=== PATIENT | female | born 1980 | race Caucasian/White ===

== ENCOUNTER 2016-09-14 17:05 | Inpatient (IN) | payer OTHER ==
[~2016-09-14] VITALS: Ht 154.9 cm; Wt 53.5 kg
[~2016-09-14 17:05] MED LIST: LITHIUM; OMEPRAZOLE; PAROXETINE; SUCRALFATE 1 GM; SUMATRIPTAN; TOPIRAMATE; TRAZADONE; VENTOLIN
[2016-09-14 22:11] VITALS: BP 121/86; RESP 18
[2016-09-14 22:48] VITALS: Ht 154.9 cm; Wt 53.5 kg
[2016-09-15] MEDS ORDERED: ACETAMINOPHEN 325 MG TAB PO PRN
[2016-09-15] MEDS ORDERED: ALBUTEROL 18 GM INHALER INH PRN
[2016-09-15] MEDS: ONDANSETRON 4 MG INJ IV PRN ×2 (00:18→18:12)
[2016-09-15] MEDS: morphine 2 MG INJ IV PRN ×6 (00:19→23:07)
[2016-09-15] MEDS: DEXTROSE 5%-0.45% NACL 1,000 ML IV SCH (00:43)
[2016-09-15] MEDS: PANTOPRAZOLE (EC) 40 MG TAB PO SCH (05:42)
[2016-09-15 07:05] LABS: ADD SCAN DIFF NO
[2016-09-15 07:12] LABS: ABNORMAL IP MESSAGE 1; BASOPHILS % 0.3 % (0.0-2.0); EOSINOPHILS # 0.2 10^3/ul (0.0-0.5); EOSINOPHILS % 2.9 % (0.0-7.0); HEMATOCRIT 34.2 % (37.0-47.0); HEMOGLOBIN 10.6 g/dl (12.0-16.0); LYMPHOCYTES # 1.1 10^3/ul (0.8-2.9); LYMPHOCYTES % 17.7 % (15.0-51.0); MEAN CORPUSCULAR HEMOGLOBIN 32.6 pg (29.0-33.0); MEAN CORPUSCULAR VOLUME 105.2 fl (82.0-101.0); MEAN PLATELET VOLUME 11.8 fl (7.4-10.4); MONOCYTE # 0.8 10^3/ul (0.3-0.9); MONOCYTES % 12.1 % (0.0-11.0); NEUTROPHIL # 4.2 10^3/ul (1.6-7.5); NEUTROPHILS % 66.5 % (39.0-77.0); PLATELET COUNT 81 10^3/UL (140-415); RED BLOOD COUNT 3.25 10^6/ul (4.20-5.40); RED CELL DISTRIBUTION WIDTH 17.1 % (11.5-14.5); WHITE BLOOD COUNT 6.3 10^3/ul (4.8-10.8)
[2016-09-15 07:39] LABS: BILIRUBIN,INDIRECT 0.7 mg/dl (0-1.1); BILIRUBIN,TOTAL 0.7 mg/dl (0.2-1.3); CALCIUM 8.6 mg/dl (8.4-10.2); CREATININE 0.5 mg/dl (0.44-1.00); POTASSIUM 3.5 mmol/L (3.5-5.1)
[2016-09-15 08:03] VITALS: BP 129/99; RESP 18
[2016-09-15] MEDS: AMLODIPINE 5 MG TAB PO SCH (09:41)
[2016-09-15] MEDS: PAROXETINE 20 MG TAB PO SCH (09:41)
[2016-09-15] MEDS: SUCRALFATE 1 GM TAB PO SCH ×2 (09:41→20:34)
[2016-09-15] MEDS: TOPIRAMATE 25 MG TAB PO SCH ×2 (09:41→20:35)
[2016-09-15] MEDS: HEPARIN 5,000 UNIT/0.5 ML VIAL SC SCH ×2 (09:49→20:40)
--- NOTE | 2016-09-15 13:26 | HP ---
Date/Time of Note Date/Time of Note DATE: 09/15/16 TIME: : Assessment/Plan VTE Prophylaxis VTE Prophylaxis Intervention: ambulation Lines/Catheters IV [facility]from [facility] [place] [facility] Urinary Cath still in place: No Assessment/Plan Chief Complaint/Hosp Course 1. Abdominal pain 2. Depression, mild 3. Anemia 4. Hs migraine 5. Hx alcohol abuse 6. Hx elevated LFTs 7. Thrombocytopenia Problems: Assessment/Plan 1. Dr Berry for consult 2. MRCP if need per GI consult HPI/ROS Admit Date/Time Admit Date/Time September 14, 2016 at 21:55 Hx of Present Illness pt reported abdominal pain on september 09, she was hospitalized in [facility] for 3 days. Her abdominal pain somehow decreased. Pt was transferred to [facility] because it is her network hospital. Pt reported drinking alcohol, and associated pain with it. ROS Constitutional: poor po Eyes: no complaints ENT: no complaints Respiratory: cough, no complaints, shortness of breath, No other, No pain, No pleuritic pain, No sputum, No wheezing Cardiovascular: chest pain, no complaints, orthopenea, No edema, No lightheadedness, No other, No palpitations, No paroxysmal nocturnal dyspnea Gastrointestinal: other (gas), pain Genitourinary: no complaints Musculoskeletal: no complaints Skin: no complaints Neurologic: other (migraines) Psychological: anxiety, depression, No confusion, No nl mood/affect, No no complaints, No other, No suicidal Immunologic: no complaints PMH/Family/Social Past Medical History Medical History: other (elevated LFT, seizures, anemia, depression, migraines) Past Surgical History Past Surgical Hx: no surgical history Family History Significant Family History: no pertinent family hx Social History Alcohol Use: heavy Smoking Status: Never smoker Drug Use: none Exam/Review of Systems Vital Signs Vitals Vital Signs Date Time Temp Pulse Resp B/P Pulse Ox O2 Delivery O2 Flow Rate FiO2 09/15/16 08:03 98.6 83 18 129/99 99 Intake and Output 09/14/16 09/14/16 09/15/16 15:00 23:00 07:00 Intake Total 320 ml Balance 320 ml Exam Constitutional: alert, oriented Psych: depression Head: atraumatic, normocephalic Eyes: EOMI, nl conjunctiva, nl lids ENMT: nl external ears & nose, nl lips & teeth Neck: supple Respiratory: clear to auscultation Cardiovascular: regular rate and rhythm Gastrointestinal: other (painful on palpation in 4 quadrants), soft Genitourinary - Female: nl adnexae Musculoskeletal: nl extremities to inspection Extremities: normal pulses 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 Skin: nl turgor Lymph: nl lymph nodes Labs Result Diagram: 09/15/1630 09/15/16 0530 Medications Medications Current Medications Dextrose/Sodium Chloride (D5-1/2ns) 1,000 ml @ 30 mls/hr Q24H IV Last administered on 09/15/16 00:43; Admin Dose 30 MLS/HR; Start 09/15/16 at 00:00 [place] Carbonate ([place] Carbonate) 300 mg QHS PO ; Start 09/15/16 at 21:00 Pantoprazole (Protonix Tab) 40 mg DAILY@06 PO Last administered on 09/15/16 05 :42; Admin Dose 40 MG; Start 09/15/16 at 06:00 Paroxetine HCl (Paxil) 20 mg DAILY PO Last administered on 09/15/16 09:41; Admin Dose 20 MG; Start 09/15/16 at 09:00 Sucralfate (Carafate) 1 gm BID PO Last administered on 09/15/16 09:41; Admin Dose 1 GM; Start 09/15/16 at 09:00 Topiramate (Topamax) 50 mg BID PO Last administered on 09/15/16 09:41; Admin Dose 50 MG; Start 09/15/16 at 09:00 Trazodone HCl (Desyrel) 100 mg QHS PO ; Start 09/15/16 at 21:00 Heparin Sodium (Porcine) (Heparin (5000 Units/0.5 ml)) 5,000 unit BID SC Last administered on 09/15/16 09:49; Admin Dose 5,000 UNIT; Start 09/15/16 at 09:00 Acetaminophen (Tylenol Tab) 650 mg Q4H PRN PO PAIN AND OR ELEVATED TEMP; Start 09/15/16 at 00:00 Morphine Sulfate (morphine) 2 mg Q4H PRN IV SEVERE PAIN LEVEL 7-10 Last administered on 09/15/16 09:43; Admin Dose 2 MG; Start 09/15/16 at 00:00 Senna (Senokot) 2 tab BID PRN PO CONSTIPATION; Start 09/15/16 at 00:00 Amlodipine Besylate (Norvasc) 5 mg DAILY PO Last administered on 09/15/16 09: 41; Admin Dose 5 MG; Start 09/15/16 at 09:00 Ondansetron HCl (Zofran Inj) 4 mg Q4H PRN IV NAUSEA AND/OR VOMITING Last administered on 09/15/16 00:18; Admin Dose 4 MG; Start 09/15/16 at 00:00 RUT MADRIGAL September 15, 2016 13:26
[2016-09-15 14:11] LABS: ADD SCAN DIFF NO
[2016-09-15 14:14] LABS: ABNORMAL IP MESSAGE 1; BASOPHILS % 0.3 % (0.0-2.0); EOSINOPHILS # 0.2 10^3/ul (0.0-0.5); HEMATOCRIT 33.8 % (37.0-47.0); HEMOGLOBIN 10.7 g/dl (12.0-16.0); LYMPHOCYTES # 0.9 10^3/ul (0.8-2.9); LYMPHOCYTES % 12.9 % (15.0-51.0); MEAN CORPUSCULAR HEMOGLOBIN 33.1 pg (29.0-33.0); MEAN CORPUSCULAR HGB CONC 31.7 g/dl (32.0-37.0); MEAN CORPUSCULAR VOLUME 104.6 fl (82.0-101.0); MONOCYTE # 0.9 10^3/ul (0.3-0.9); NEUTROPHIL # 5.1 10^3/ul (1.6-7.5); RED BLOOD COUNT 3.23 10^6/ul (4.20-5.40); WHITE BLOOD COUNT 7.2 10^3/ul (4.8-10.8)
[2016-09-15 14:21] LABS: PLATELET COUNT 87 10^3/UL (140-415)
--- NOTE | 2016-09-15 15:59 | CONS ---
Date/Time of Note Date/Time of Note DATE: 09/15/16 TIME: 15:33 Assessment/Plan Assessment/Plan Chief Complaint/Hosp Course 36 yo alcoholic initially admitted to [facility] with pancreatitis after binge drinking who is found to be persistantly thrombocytopenic now with a platelet count in the 80's which is slightly lower than what was seen at [place] when platelets were in the 90's #Thrombocytopenia -this is most likely secondary to acute bone marrow suppressive effects from heavy binge drinking. even tough patient has not had a drink in the last few days while hospitalized this can take weeks normalize. Her non contrast CT done at [place] did not show evidence of cirrhosis but it is likely that a component of hepatocellular disease is contributing to her low platelet count -to rule out other causes of thrombocytopenia, will check a DIC panel and LDH to evaluate for TTP. will also check peripheral smear -continue to closely monitor platelet count Problems: Consultation Date/Type/Reason Admit Date/Time September 14, 2016 at 21:55 Date of Consultation: September 15, 2016 Type of Consultation: Hematology Reason for Consultation thrombocytopenia Referring Provider: YASMANI LUND MD Hx of Present Illness (history obtained from records at [facility]). 36yo with history of ETOH abuse who had an episode of binge drinking, drinking a bottle of vodka a day, prior to her presentation to [place] on 09/12 when she presented with abdominal pain. Abdominal pain was deemed secondary to alcoholic pancreatitis. . Patient was evaluated by GI and an ultrasound was done which demonstrated CBD dilatation . An MRCP was then done which demonstrated gastritis, intra and extrahepatic duct dilation thought secondary to duodenitis, cholecystitis, as well as an incidentally noted pancreatic cystic tail mass that has been stable over time. Patients platelets in 08/2016 where normal but since her admission to [place] in 09/2016 her platelets have dropped to 80-90's. Pt still c/o mild abdominal pain requiring morphine around the clock Eyes: no complaints ENT: no complaints Respiratory: cough, no complaints, shortness of breath, No other, No pain, No pleuritic pain, No sputum, No wheezing Cardiovascular: chest pain, no complaints, orthopenea, No edema, No lightheadedness, No other, No palpitations, No paroxysmal nocturnal dyspnea Gastrointestinal: other (gas), pain Genitourinary: no complaints Musculoskeletal: no complaints Skin: no complaints Neurologic: other (migraines) Psychological: depression Immunologic: no complaints Past Medical History PUD pancreatitis depression EtOH abuse history of migraine h/o seizure disorder Medical History: other (elevated LFT, seizures, anemia, depression, migraines) Past Surgical History Past Surgical Hx: no surgical history Family History Significant Family History: no pertinent family hx Social History Alcohol Use: heavy (1 bottle of vodka a day) Smoking Status: Never smoker Drug Use: none Exam/Review of Systems Vital Signs Vitals Vital Signs Date Time Temp Pulse Resp B/P Pulse Ox O2 Delivery O2 Flow Rate FiO2 09/15/16 08:03 98.6 83 18 129/99 99 Intake and Output 09/14/16 09/14/16 09/15/16 15:00 23:00 07:00 Intake Total 320 ml Balance 320 ml Exam Constitutional: alert Psych: no complaints Head: atraumatic, normocephalic Eyes: nl conjunctiva ENMT: nl external ears & nose, nl lips & teeth Neck: non-tender, supple Respiratory: clear to auscultation Cardiovascular: nl pulses, regular rate and rhythm Gastrointestinal: soft Musculoskeletal: nl extremities to inspection Results Result Diagram: 09/15/16 1350 09/15/16 0530 Results 24 hrs Laboratory Tests Test 09/15/16 05:30 09/15/16 13:50 White Blood Count 6.3 7.2 Red Blood Count 3.25 L 3.23 L Hemoglobin 10.6 L 10.7 L Hematocrit 34.2 L 33.8 L Mean Corpuscular Volume 105.2 H 104.6 H Mean Corpuscular Hemoglobin 32.6 33.1 H Mean Corpuscular Hemoglobin Concent 31.0 L 31.7 L Red Cell Distribution Width 17.1 H 17.0 H Platelet Count 81 L 87 L Mean Platelet Volume 11.8 H 11.0 H Neutrophils % 66.5 71.0 Lymphocytes % 17.7 12.9 L Monocytes % 12.1 H 12.0 H Eosinophils % 2.9 3.0 Basophils % 0.3 0.3 Nucleated Red Blood Cells % 0.0 0.0 Neutrophils # 4.2 5.1 Lymphocytes # 1.1 0.9 Monocytes # 0.8 0.9 Eosinophils # 0.2 0.2 Basophils # 0.0 0.0 Nucleated Red Blood Cells # 0.0 0.0 Sodium Level 138 Potassium Level 3.5 Chloride Level 113 H Carbon Dioxide Level 19 L Anion Gap 10 Blood Urea Nitrogen 4 L Creatinine 0.50 Glucose Level 80 Calcium Level 8.6 Total Bilirubin 0.7 Direct Bilirubin 0.00 Indirect Bilirubin 0.7 Aspartate Amino Transf (AST/SGOT) 81 H Alanine Aminotransferase (ALT/SGPT) 225 H Alkaline Phosphatase 208 H Total Protein 6.0 L Albumin 3.0 L Globulin 3.00 Albumin/Globulin Ratio 1.00 Medications Medications Current Medications Dextrose/Sodium Chloride (D5-1/2ns) 1,000 ml @ 30 mls/hr Q24H IV Last administered on 09/15/16 00:43; Admin Dose 30 MLS/HR; Start 09/15/16 at 00:00 [place] Carbonate ([place] Carbonate) 300 mg QHS PO ; Start 09/15/16 at 21:00 Pantoprazole (Protonix Tab) 40 mg DAILY@06 PO Last administered on 09/15/16 05 :42; Admin Dose 40 MG; Start 09/15/16 at 06:00 Paroxetine HCl (Paxil) 20 mg DAILY PO Last administered on 09/15/16 09:41; Admin Dose 20 MG; Start 09/15/16 at 09:00 Sucralfate (Carafate) 1 gm BID PO Last administered on 09/15/16 09:41; Admin Dose 1 GM; Start 09/15/16 at 09:00 Topiramate (Topamax) 50 mg BID PO Last administered on 09/15/16 09:41; Admin Dose 50 MG; Start 09/15/16 at 09:00 Trazodone HCl (Desyrel) 100 mg QHS PO ; Start 09/15/16 at 21:00 Heparin Sodium (Porcine) (Heparin (5000 Units/0.5 ml)) 5,000 unit BID SC Last administered on 09/15/16 09:49; Admin Dose 5,000 UNIT; Start 09/15/16 at 09:00 Acetaminophen (Tylenol Tab) 650 mg Q4H PRN PO PAIN AND OR ELEVATED TEMP; Start 09/15/16 at 00:00 Morphine Sulfate (morphine) 2 mg Q4H PRN IV SEVERE PAIN LEVEL 7-10 Last administered on 09/15/16 14:10; Admin Dose 2 MG; Start 09/15/16 at 00:00 Senna (Senokot) 2 tab BID PRN PO CONSTIPATION; Start 09/15/16 at 00:00 Amlodipine Besylate (Norvasc) 5 mg DAILY PO Last administered on 09/15/16 09: 41; Admin Dose 5 MG; Start 09/15/16 at 09:00 Ondansetron HCl (Zofran Inj) 4 mg Q4H PRN IV NAUSEA AND/OR VOMITING Last administered on 09/15/16 00:18; Admin Dose 4 MG; Start 09/15/16 at 00:00 ULYSSES STEINBERG M.D. September 15, 2016 15:43
--- NOTE | 2016-09-15 17:01 | RADRPT ---
PROCEDURE: MRCP. CLINICAL INDICATION: Common bile duct stone, pain. TECHNIQUE: MRCP was performed. Patient was examined without contrast. 3-D coronal rotating MIP i mages of the biliary tree are available for review. COMPARISON: None available FINDINGS: Motion artifact limits evaluation. The gallbladder is distended. No gallstone or gallbladder wall thickening is identified. There is dilatation of the common bile duct, measuring approximately 11 mm in maximal diameter. There is mil d prominence of intrahepatic biliary ducts as well. No gross evidence of common duct stone, strictu re or filling defect is identified. Indeterminate septated cystic structure is seen adjacent to pancreatic tail, measuring 7.3 x 5.9 cm (3-19). The pancreas appears atrophic. Liver, spleen, adrenal glands and kidneys are unremarkable. There is no obstructive uropathy. The stomach is grossly unremarkable. Abdominal aorta is normal in caliber. There is no retroperitoneal or jc hepatis lymphadenopathy. Trace amount of upper abdominal ascites is present. No bowel obstruction or gross evidence of abs cess is seen. The surrounding osseous structures are remarkable for degenerative spondylosis of the spine. No focal osseous lesion is identified. IMPRESSION: 1. There is nonspecific dilatation of the common bile duct, measuring approximately 11 mm in amena l diameter, along with mild prominence of intrahepatic biliary ducts. Gallbladder is distended as w ell. No evidence of cholelithiasis, cholecystitis, or choledocholithiasis is identified. 2. Indeterminate septated cystic structure is seen adjacent to pancreatic tail, measuring 7.3 cm in maximal diameter - considerations include pseudocyst and cystic pancreatic neoplasm. Pancreatic pr otocol contrast enhanced CT is recommended for further characterization. 3. Nonspecific trace amount of upper abdominal ascites is present. RPTAT: QQ .Marco Isabel MD, MD Date Time Electronically viewed and signed by .Marco Isabel MD, on 09/15/2016 17:01 .R/
--- NOTE | 2016-09-15 17:51 | CONS ---
DATE OF ADMISSION: 09/14/2016 DATE OF CONSULTATION: HISTORY OF PRESENT ILLNESS: The patient is a 36-year-old female admitted initially to [facility] for abdominal pain. She stayed at [place] for 3 days. Her pain decreased but persisted s ubsequently got transferred to this facility. She reported drinking alcohol. The patient was initi ally nauseous, no vomiting. 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 I do not have any report from [facility], nothing to scan on the computer. PAST MEDICAL HISTORY: Gastritis. She had upper endoscopy done by me 8 months ago. SOCIAL HISTORY: Drinks alcohol. No smoking, no recreational drug. ALLERGIES: NONE. PHYSICAL EXAMINATION: GENERAL: Alert, awake, not in distress. VITAL SIGNS: Stable. HEENT: Unremarkable. NECK: Supple, no thyromegaly, no lymphadenopathy. CARDIOVASCULAR: No murmur, gallop or click. LUNGS: Clear. ABDOMEN: Soft. Tenderness in the epigastric area. Bowel sounds good. No mass of the upper abdome n. EXTREMITIES: No edema. CENTRAL NERVOUS SYSTEM: Grossly within normal limits. LABORATORY DATA: Liver functions were all abnormal. Hematocrit is low. IMPRESSION: 1. Elevated liver function tests with abdominal pain most probably related to alcoholic liver disea se, rule out bile duct stone. 2. Seizure disorder. 3. Depression. 4. Migraine. 5. Anemia. 6. Thrombocytopenia. 7. Macrocytosis. PLAN: At this point, is to get MRCP done to make sure we are not missing a bile duct stone. In the interim, continue PPI and non-opioid pain medication, a banana bag. Dictated By: HELIO DEAN/OLESYA Conf#: [id number] DID#: [id number]
[2016-09-15 20:33] VITALS: BP 108/75; PULSE 87
[2016-09-15] MEDS: LITHIUM CARBONATE 300 MG CAP PO SCH (20:36)
[2016-09-15] MEDS: traZODone 100 MG TAB PO SCH (20:36)
[2016-09-16] MEDS: morphine 2 MG INJ IV PRN ×3 (05:52→18:22)
[2016-09-16] MEDS: ONDANSETRON 4 MG INJ IV PRN ×2 (05:53→15:25)
[2016-09-16] MEDS: PANTOPRAZOLE (EC) 40 MG TAB PO SCH (06:10)
[2016-09-16 06:36] LABS: POTASSIUM 3.3 mmol/L (3.5-5.1)
[2016-09-16 06:39] LABS: CALCIUM 8.9 mg/dl (8.4-10.2); CREATININE 0.55 mg/dl (0.44-1.00)
[2016-09-16 07:23] VITALS: BP 109/74; RESP 16
[2016-09-16] MEDS: PAROXETINE 20 MG TAB PO SCH (08:43)
[2016-09-16] MEDS: TOPIRAMATE 25 MG TAB PO SCH ×2 (08:43→20:42)
[2016-09-16] MEDS: SUCRALFATE 1 GM TAB PO SCH ×2 (08:43→20:41)
[2016-09-16] MEDS: AMLODIPINE 5 MG TAB PO SCH (08:44)
[2016-09-16] MEDS: HEPARIN 5,000 UNIT/0.5 ML VIAL SC SCH ×2 (08:54→20:47)
[2016-09-16] MEDS: SENNA TAB PO PRN (13:02)
--- NOTE | 2016-09-16 14:36 | CONS ---
Date/Time of Note Date/Time of Note DATE: 09/16/16 TIME: 14:34 Assessment/Plan Assessment/Plan Additional Assessment/Plan IMPRESSION: 1. Elevated liver function tests with abdominal pain most probably related to alcoholic liver disease, rule out bile duct stone. 2. Seizure disorder. 3. Depression. 4. Migraine. 5. Anemia. 6. Thrombocytopenia. 7. Macrocytosis. 8. Pancreatic cyst most probably a pseudocyst 9. Dilated biliary system without choledocholithiasis Plan Patient may need ERCP She will need EUS to monitor pseudocyst Consultation Date/Type/Reason Admit Date/Time September 14, 2016 at 21:55 Initial Consult Date 09/15/16 Type of Consultation: Hematology Referring Provider: YASMANI LUND MD 24 HR Interval Summary Free Text/Dictation Patient complains of abdominal pain No nausea no vomiting Exam/Review of Systems Vital Signs Vitals Vital Signs Date Time Temp Pulse Resp B/P Pulse Ox O2 Delivery O2 Flow Rate FiO2 09/16/16 07:23 98.8 75 16 109/74 97 09/15/16 20:33 Room Air Intake and Output 09/15/16 09/15/16 09/16/16 15:00 23:00 07:00 Intake Total 1480 ml 510 ml Balance 1480 ml 510 ml Exam Constitutional: alert, oriented, well developed Psych: nl mood/affect, no complaints Head: atraumatic, normocephalic Eyes: EOMI, PERRL, nl conjunctiva, nl lids, nl sclera ENMT: nl external ears & nose, nl lips & teeth, nl nasal mucosa & septum Neck: non-tender, supple Respiratory: clear to auscultation, normal air movement Cardiovascular: nl pulses, regular rate and rhythm Gastrointestinal: nl liver, spleen, non-tender, soft Musculoskeletal: nl extremities to inspection, nl gait and stance Extremities: normal pulses 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, nl mental status, nl speech, nl strength Skin: nl turgor, No rash or lesions Lymph: nl lymph nodes Results Result Diagram: 09/15/16 1350 09/16/16 0438 Results 24 hrs Laboratory Tests Test 09/16/16 04:38 Sodium Level 140 Potassium Level 3.3 L Chloride Level 110 Carbon Dioxide Level 20 L Anion Gap 13 Blood Urea Nitrogen 7 Creatinine 0.55 Glucose Level 112 Calcium Level 8.9 Medications Medications Current Medications Dextrose/Sodium Chloride (D5-1/2ns) 1,000 ml @ 30 mls/hr Q24H IV Last administered on 09/15/16 00:43; Admin Dose 30 MLS/HR; Start 09/15/16 at 00:00 [place] Carbonate ([place] Carbonate) 300 mg QHS PO Last administered on 20:36; Admin Dose 300 MG; Start 09/15/16 at 21:00 Pantoprazole (Protonix Tab) 40 mg DAILY@06 PO Last administered on 09/16/16 06 :10; Admin Dose 40 MG; Start 09/15/16 at 06:00 Paroxetine HCl (Paxil) 20 mg DAILY PO Last administered on 09/16/16 08:43; Admin Dose 20 MG; Start 09/15/16 at 09:00 Sucralfate (Carafate) 1 gm BID PO Last administered on 09/16/16 08:43; Admin Dose 1 GM; Start 09/15/16 at 09:00 Topiramate (Topamax) 50 mg BID PO Last administered on 09/16/16 08:43; Admin Dose 50 MG; Start 09/15/16 at 09:00 Trazodone HCl (Desyrel) 100 mg QHS PO Last administered on 09/15/16 20:36; Admin Dose 100 MG; Start 09/15/16 at 21:00 Heparin Sodium (Porcine) (Heparin (5000 Units/0.5 ml)) 5,000 unit BID SC Last administered on 09/16/16 08:54; Admin Dose 5,000 UNIT; Start 09/15/16 at 09:00 Acetaminophen (Tylenol Tab) 650 mg Q4H PRN PO PAIN AND OR ELEVATED TEMP; Start 09/15/16 at 00:00 Morphine Sulfate (morphine) 2 mg Q4H PRN IV SEVERE PAIN LEVEL 7-10 Last administered on 09/16/16 13:02; Admin Dose 2 MG; Start 09/15/16 at 00:00 Senna (Senokot) 2 tab BID PRN PO CONSTIPATION Last administered on 09/16/16 13 :02; Admin Dose 2 TAB; Start 09/15/16 at 00:00 Amlodipine Besylate (Norvasc) 5 mg DAILY PO Last administered on 09/16/16 08: 44; Admin Dose 5 MG; Start 09/15/16 at 09:00 Ondansetron HCl (Zofran Inj) 4 mg Q4H PRN IV NAUSEA AND/OR VOMITING Last administered on 09/16/16 05:53; Admin Dose 4 MG; Start 09/15/16 at 00:00 HELIO DUNBAR MD September 16, 2016 14:35
[2016-09-16] MEDS: DEXTROSE 5%-0.45% NACL 1,000 ML IV SCH ×2 (15:23)
[2016-09-16] MEDS ORDERED: POTASSIUM CHLORIDE (SR) 10 MEQ TAB PO ONE (16:00)
--- NOTE | 2016-09-16 17:28 | PN ---
Date/Time of Note Date/Time of Note DATE: 09/16/16 TIME: 17:27 Assessment/Plan VTE Prophylaxis VTE Prophylaxis Intervention: other Lines/Catheters IV Catheter Type (from Nrs): Peripheral IV Urinary Cath still in place: No Assessment/Plan Chief Complaint/Hosp Course ABD PAIN PANCREATITIS HYPOKALEMIA PLAN KCL PER GI Problems: Subjective 24 Hr Interval Summary Cardiovascular: no complaints Gastrointestinal: pain (+) Exam/Review of Systems Vital Signs Vitals Vital Signs Date Time Temp Pulse Resp B/P Pulse Ox O2 Delivery O2 Flow Rate FiO2 09/16/16 07:23 98.8 75 16 109/74 97 09/15/16 20:33 Room Air Intake and Output 09/15/16 09/15/16 09/16/16 15:00 23:00 07:00 Intake Total 1480 ml 510 ml Balance 1480 ml 510 ml Exam Neck: supple Cardiovascular: regular rate and rhythm Gastrointestinal: soft Genitourinary - Female: nl adnexae Musculoskeletal: nl extremities to inspection Results Result Diagram: 09/15/16 1350 09/16/16 0438 Results 24 hrs Laboratory Tests Test 09/16/16 04:38 Sodium Level 140 Potassium Level 3.3 L Chloride Level 110 Carbon Dioxide Level 20 L Anion Gap 13 Blood Urea Nitrogen 7 Creatinine 0.55 Glucose Level 112 Calcium Level 8.9 Medications Medications Current Medications Dextrose/Sodium Chloride (D5-1/2ns) 1,000 ml @ 30 mls/hr Q24H IV Last administered on 09/16/16 15:23; Admin Dose 30 MLS/HR; Start 09/15/16 at 00:00 [place] Carbonate ([place] Carbonate) 300 mg QHS PO Last administered on 20:36; Admin Dose 300 MG; Start 09/15/16 at 21:00 Pantoprazole (Protonix Tab) 40 mg DAILY@06 PO Last administered on 09/16/16 06 :10; Admin Dose 40 MG; Start 09/15/16 at 06:00 Paroxetine HCl (Paxil) 20 mg DAILY PO Last administered on 09/16/16 08:43; Admin Dose 20 MG; Start 09/15/16 at 09:00 Sucralfate (Carafate) 1 gm BID PO Last administered on 09/16/16 08:43; Admin Dose 1 GM; Start 09/15/16 at 09:00 Topiramate (Topamax) 50 mg BID PO Last administered on 09/16/16 08:43; Admin Dose 50 MG; Start 09/15/16 at 09:00 Trazodone HCl (Desyrel) 100 mg QHS PO Last administered on 09/15/16 20:36; Admin Dose 100 MG; Start 09/15/16 at 21:00 Heparin Sodium (Porcine) (Heparin (5000 Units/0.5 ml)) 5,000 unit BID SC Last administered on 09/16/16 08:54; Admin Dose 5,000 UNIT; Start 09/15/16 at 09:00 Acetaminophen (Tylenol Tab) 650 mg Q4H PRN PO PAIN AND OR ELEVATED TEMP; Start 09/15/16 at 00:00 Morphine Sulfate (morphine) 2 mg Q4H PRN IV SEVERE PAIN LEVEL 7-10 Last administered on 09/16/16 13:02; Admin Dose 2 MG; Start 09/15/16 at 00:00 Senna (Senokot) 2 tab BID PRN PO CONSTIPATION Last administered on 09/16/16 13 :02; Admin Dose 2 TAB; Start 09/15/16 at 00:00 Amlodipine Besylate (Norvasc) 5 mg DAILY PO Last administered on 09/16/16 08: 44; Admin Dose 5 MG; Start 09/15/16 at 09:00 Ondansetron HCl (Zofran Inj) 4 mg Q4H PRN IV NAUSEA AND/OR VOMITING Last administered on 09/16/16 15:25; Admin Dose 4 MG; Start 09/15/16 at 00:00 YASMANI LUND MD September 16, 2016 17:28
[2016-09-16 20:12] VITALS: BP 104/72; PULSE 69; RESP 18
[2016-09-16] MEDS: LITHIUM CARBONATE 300 MG CAP PO SCH (20:42)
[2016-09-16] MEDS: traZODone 100 MG TAB PO SCH (20:42)
[2016-09-17] MEDS: DEXTROSE 5%-0.45% NACL 1,000 ML IV SCH
[2016-09-17] MEDS: PANTOPRAZOLE (EC) 40 MG TAB PO SCH (05:31)
[2016-09-17 06:12] LABS: ADD SCAN DIFF NO
[2016-09-17 06:18] LABS: BASOPHILS % 0.3 % (0.0-2.0); EOSINOPHILS # 0.4 10^3/ul (0.0-0.5); EOSINOPHILS % 5.5 % (0.0-7.0); HEMATOCRIT 34.7 % (37.0-47.0); HEMOGLOBIN 10.8 g/dl (12.0-16.0); LYMPHOCYTES # 1.4 10^3/ul (0.8-2.9); LYMPHOCYTES % 20.2 % (15.0-51.0); MEAN CORPUSCULAR HEMOGLOBIN 32.2 pg (29.0-33.0); MEAN CORPUSCULAR HGB CONC 31.1 g/dl (32.0-37.0); MEAN CORPUSCULAR VOLUME 103.6 fl (82.0-101.0); MEAN PLATELET VOLUME 11.3 fl (7.4-10.4); MONOCYTE # 0.7 10^3/ul (0.3-0.9); MONOCYTES % 10.2 % (0.0-11.0); NEUTROPHIL # 4.2 10^3/ul (1.6-7.5); NEUTROPHILS % 62.3 % (39.0-77.0); PLATELET COUNT 168 10^3/UL (140-415); RED BLOOD COUNT 3.35 10^6/ul (4.20-5.40); RED CELL DISTRIBUTION WIDTH 16.7 % (11.5-14.5); WHITE BLOOD COUNT 6.8 10^3/ul (4.8-10.8)
[2016-09-17 06:48] LABS: POTASSIUM 3.6 mmol/L (3.5-5.1)
[2016-09-17 06:51] LABS: CREATININE 0.57 mg/dl (0.44-1.00)
[2016-09-17 07:26] VITALS: BP 96/66; RESP 16
[2016-09-17] MEDS: AMLODIPINE 5 MG TAB PO SCH (08:27)
[2016-09-17] MEDS: morphine 2 MG INJ IV PRN ×3 (08:28→17:40)
[2016-09-17] MEDS: ONDANSETRON 4 MG INJ IV PRN ×3 (08:28→17:40)
[2016-09-17] MEDS: SUCRALFATE 1 GM TAB PO SCH ×2 (08:34→20:48)
[2016-09-17] MEDS: PAROXETINE 20 MG TAB PO SCH (08:35)
[2016-09-17] MEDS: TOPIRAMATE 25 MG TAB PO SCH ×2 (08:35→20:48)
[2016-09-17] MEDS: HEPARIN 5,000 UNIT/0.5 ML VIAL SC SCH ×2 (08:42→21:04)
--- NOTE | 2016-09-17 09:25 | CONS ---
Date/Time of Note Date/Time of Note DATE: 09/17/16 TIME: 09:20 Assessment/Plan Assessment/Plan Chief Complaint/Hosp Course 36 yo alcoholic [place] [facility] [place]itis after binge drinking who is found to be persistently thrombocytopenic now with a platelet count in the 80's which is slightly lower than what was seen at [place] when platelets were in the 90's. Thrombocytopenia has now resolved and platelets are within normal range. #Thrombocytopenia -platelets have now normalized -this is most likely secondary to acute bone marrow suppressive effects from heavy binge drinking. Her non contrast CT done at [place] did not show evidence of cirrhosis but it is likely that a component of hepatocellular disease is contributing to her low platelet count -to rule out other causes of thrombocytopenia, will check a DIC panel and LDH to evaluate for TTP. will also check peripheral smear. Although this is unlikely given normalization of platelet counts -continue to closely monitor platelet count #Pancreatic Cyst -management per GI -pt will likely need an EUS Problems: Consultation Date/Type/Reason Admit Date/Time September 14, 2016 at 21:55 Initial Consult Date 09/15/16 Type of Consultation: Hematology Reason for Consultation thrombocytopenia Referring Provider: YASMANI LUND MD 24 HR Interval Summary Free Text/Dictation no acute overnight events. pt still with mild abdominal pain. no bleeding Exam/Review of Systems Vital Signs Vitals Vital Signs Date Time Temp Pulse Resp B/P Pulse Ox O2 Delivery O2 Flow Rate FiO2 09/17/16 07:26 98.1 64 16 96/66 97 09/16/16 20:12 Room Air Intake and Output 09/16/16 09/16/16 09/17/16 15:00 23:00 07:00 Intake Total 160 ml 1420 ml 530 ml Output Total 850 ml 300 ml Balance 160 ml 570 ml 230 ml Exam Constitutional: alert, oriented Psych: no complaints Head: atraumatic, normocephalic Eyes: nl conjunctiva ENMT: nl external ears & nose Neck: non-tender, supple Respiratory: clear to auscultation, normal air movement Cardiovascular: regular rate and rhythm Gastrointestinal: soft Musculoskeletal: nl extremities to inspection, nl gait and stance Results Result Diagram: 09/17/16 0548 09/17/16 0548 Results 24 hrs Laboratory Tests Test 09/17/16 05:48 White Blood Count 6.8 Red Blood Count 3.35 L Hemoglobin 10.8 L Hematocrit 34.7 L Mean Corpuscular Volume 103.6 H Mean Corpuscular Hemoglobin 32.2 Mean Corpuscular Hemoglobin Concent 31.1 L Red Cell Distribution Width 16.7 H Platelet Count 168 # Mean Platelet Volume 11.3 H Neutrophils % 62.3 Lymphocytes % 20.2 Monocytes % 10.2 Eosinophils % 5.5 Basophils % 0.3 Nucleated Red Blood Cells % 0.0 Neutrophils # 4.2 Lymphocytes # 1.4 Monocytes # 0.7 Eosinophils # 0.4 Basophils # 0.0 Nucleated Red Blood Cells # 0.0 Sodium Level 141 Potassium Level 3.6 Chloride Level 111 H Carbon Dioxide Level 20 L Anion Gap 14 Blood Urea Nitrogen 8 Creatinine 0.57 Glucose Level 89 Calcium Level 9.0 Medications Medications Current Medications Dextrose/Sodium Chloride (D5-1/2ns) 1,000 ml @ 30 mls/hr Q24H IV Last administered on 09/16/16 15:23; Admin Dose 30 MLS/HR; Start 09/15/16 at 00:00 [place] Carbonate ([place] Carbonate) 300 mg QHS PO Last administered on 20:42; Admin Dose 300 MG; Start 09/15/16 at 21:00 Pantoprazole (Protonix Tab) 40 mg DAILY@06 PO Last administered on 09/17/16 05 :31; Admin Dose 40 MG; Start 09/15/16 at 06:00 Paroxetine HCl (Paxil) 20 mg DAILY PO Last administered on 09/17/16 08:35; Admin Dose 20 MG; Start 09/15/16 at 09:00 Sucralfate (Carafate) 1 gm BID PO Last administered on 09/17/16 08:34; Admin Dose 1 GM; Start 09/15/16 at 09:00 Topiramate (Topamax) 50 mg BID PO Last administered on 09/17/16 08:35; Admin Dose 50 MG; Start 09/15/16 at 09:00 Trazodone HCl (Desyrel) 100 mg QHS PO Last administered on 09/16/16 20:42; Admin Dose 100 MG; Start 09/15/16 at 21:00 Heparin Sodium (Porcine) (Heparin (5000 Units/0.5 ml)) 5,000 unit BID SC Last administered on 09/17/16 08:42; Admin Dose 5,000 UNIT; Start 09/15/16 at 09:00 Acetaminophen (Tylenol Tab) 650 mg Q4H PRN PO PAIN AND OR ELEVATED TEMP; Start 09/15/16 at 00:00 Morphine Sulfate (morphine) 2 mg Q4H PRN IV SEVERE PAIN LEVEL 7-10 Last administered on 09/17/16 08:28; Admin Dose 2 MG; Start 09/15/16 at 00:00 Senna (Senokot) 2 tab BID PRN PO CONSTIPATION Last administered on 09/16/16 13 :02; Admin Dose 2 TAB; Start 09/15/16 at 00:00 Amlodipine Besylate (Norvasc) 5 mg DAILY PO Last administered on 09/16/16 08: 44; Admin Dose 5 MG; Start 09/15/16 at 09:00 Ondansetron HCl (Zofran Inj) 4 mg Q4H PRN IV NAUSEA AND/OR VOMITING Last administered on 09/17/16 08:28; Admin Dose 4 MG; Start 09/15/16 at 00:00 ULYSSES STEINBERG M.D. September 17, 2016 09:25
[2016-09-17 10:24] LABS: PLATELET COUNT 177 10^3/UL (140-415)
[2016-09-17 10:58] LABS: INR 0.99; PROTIME 13.1 Sec (12.2-14.2)
[2016-09-17 10:59] LABS: PARTIAL THROMBOPLASTIN TIME 47.7 Sec (25.0-35.0)
[2016-09-17 11:01] LABS: THROMBIN TIME 19.6 SEC (13.8-19.1)
[2016-09-17 11:05] LABS: D-DIMER 3927.96 ng/ml (<460)
[2016-09-17 12:07] LABS: FIBRIN SPLIT PRODUCT <10 ug/ml (<10)
--- NOTE | 2016-09-17 18:03 | PN ---
Date/Time of Note Date/Time of Note DATE: 09/17/16 TIME: 18:02 Assessment/Plan VTE Prophylaxis VTE Prophylaxis Intervention: other Lines/Catheters IV Catheter Type (from Nrs): Peripheral IV Urinary Cath still in place: No Assessment/Plan Chief Complaint/Hosp Course ABD PAIN PANCREATITIS HYPOKALEMIABETTER PSEUDOCYSTS PLAN KCL PER GI AND DR SABA Problems: Subjective 24 Hr Interval Summary Gastrointestinal: No pain Genitourinary: no complaints Musculoskeletal: no complaints Exam/Review of Systems Vital Signs Vitals Vital Signs Date Time Temp Pulse Resp B/P Pulse Ox O2 Delivery O2 Flow Rate FiO2 09/17/16 07:26 98.1 64 16 96/66 97 09/16/16 20:12 Room Air Intake and Output 09/16/16 09/16/16 09/17/16 14:59 22:59 06:59 Intake Total 160 ml 1420 ml 530 ml Output Total 850 ml 300 ml Balance 160 ml 570 ml 230 ml Exam Neck: supple Respiratory: clear to auscultation Cardiovascular: regular rate and rhythm Gastrointestinal: soft Musculoskeletal: nl extremities to inspection Neurological: CASHIER GREETER II-XII intact Results Result Diagram: 09/17/16 1010 09/17/16 0548 Results 24 hrs Laboratory Tests Test 09/17/16 05:48 09/17/16 10:10 White Blood Count 6.8 Red Blood Count 3.35 L Hemoglobin 10.8 L Hematocrit 34.7 L Mean Corpuscular Volume 103.6 H Mean Corpuscular Hemoglobin 32.2 Mean Corpuscular Hemoglobin Concent 31.1 L Red Cell Distribution Width 16.7 H Platelet Count 168 # 177 Mean Platelet Volume 11.3 H Neutrophils % 62.3 Lymphocytes % 20.2 Monocytes % 10.2 Eosinophils % 5.5 Basophils % 0.3 Nucleated Red Blood Cells % 0.0 Neutrophils # 4.2 Lymphocytes # 1.4 Monocytes # 0.7 Eosinophils # 0.4 Basophils # 0.0 Nucleated Red Blood Cells # 0.0 Sodium Level 141 Potassium Level 3.6 Chloride Level 111 H Carbon Dioxide Level 20 L Anion Gap 14 Blood Urea Nitrogen 8 Creatinine 0.57 Glucose Level 89 Calcium Level 9.0 Prothrombin Time 13.1 Prothrombin Time Ratio 1.0 INR International Normalized Ratio 0.99 Activated Partial Thromboplast Time 47.7 H Thrombin Time 19.6 H Fibrinogen 446.0 Plasma Fibrin Degradation Products <10 D-Dimer 3927.96 H D-Dimer Comment Lactate Dehydrogenase 411 Medications Medications Current Medications Dextrose/Sodium Chloride (D5-1/2ns) 1,000 ml @ 30 mls/hr Q24H IV Last administered on 09/16/16 15:23; Admin Dose 30 MLS/HR; Start 09/15/16 at 00:00 [place] Carbonate ([place] Carbonate) 300 mg QHS PO Last administered on 20:42; Admin Dose 300 MG; Start 09/15/16 at 21:00 Pantoprazole (Protonix Tab) 40 mg DAILY@06 PO Last administered on 09/17/16 05 :31; Admin Dose 40 MG; Start 09/15/16 at 06:00 Paroxetine HCl (Paxil) 20 mg DAILY PO Last administered on 09/17/16 08:35; Admin Dose 20 MG; Start 09/15/16 at 09:00 Sucralfate (Carafate) 1 gm BID PO Last administered on 09/17/16 08:34; Admin Dose 1 GM; Start 09/15/16 at 09:00 Topiramate (Topamax) 50 mg BID PO Last administered on 09/17/16 08:35; Admin Dose 50 MG; Start 09/15/16 at 09:00 Trazodone HCl (Desyrel) 100 mg QHS PO Last administered on 09/16/16 20:42; Admin Dose 100 MG; Start 09/15/16 at 21:00 Heparin Sodium (Porcine) (Heparin (5000 Units/0.5 ml)) 5,000 unit BID SC Last administered on 09/17/16 08:42; Admin Dose 5,000 UNIT; Start 09/15/16 at 09:00 Acetaminophen (Tylenol Tab) 650 mg Q4H PRN PO PAIN AND OR ELEVATED TEMP; Start 09/15/16 at 00:00 Morphine Sulfate (morphine) 2 mg Q4H PRN IV SEVERE PAIN LEVEL 7-10 Last administered on 09/17/16 17:40; Admin Dose 2 MG; Start 09/15/16 at 00:00 Senna (Senokot) 2 tab BID PRN PO CONSTIPATION Last administered on 09/16/16 13 :02; Admin Dose 2 TAB; Start 09/15/16 at 00:00 Amlodipine Besylate (Norvasc) 5 mg DAILY PO Last administered on 09/16/16 08: 44; Admin Dose 5 MG; Start 09/15/16 at 09:00 Ondansetron HCl (Zofran Inj) 4 mg Q4H PRN IV NAUSEA AND/OR VOMITING Last administered on 09/17/16 17:40; Admin Dose 4 MG; Start 09/15/16 at 00:00 YASMANI LUND MD September 17, 2016 18:03
--- NOTE | 2016-09-17 19:15 | CONS ---
Date/Time of Note Date/Time of Note DATE: 09/17/16 TIME: 19:14 Assessment/Plan Assessment/Plan Additional Assessment/Plan IMPRESSION: 1. Elevated liver function tests with abdominal pain most probably related to alcoholic liver disease, rule out bile duct stone. 2. Seizure disorder. 3. Depression. 4. Migraine. 5. Anemia. 6. Thrombocytopenia. Improved now back to normal 7. Macrocytosis. 8. Pancreatic cyst most probably a pseudocyst 9. Dilated biliary system without choledocholithiasis Plan Patient may need ERCP She will need EUS for the evaluation of the cyst Consultation Date/Type/Reason Admit Date/Time September 14, 2016 at 21:55 Initial Consult Date 09/15/16 Type of Consultation: Hematology Referring Provider: YASMANI LUND MD 24 HR Interval Summary Free Text/Dictation Patient complains of abdominal No vomiting Exam/Review of Systems Vital Signs Vitals Vital Signs Date Time Temp Pulse Resp B/P Pulse Ox O2 Delivery O2 Flow Rate FiO2 09/17/16 07:26 98.1 64 16 96/66 97 09/16/16 20:12 Room Air Intake and Output 09/16/16 09/16/16 09/17/16 15:00 23:00 07:00 Intake Total 160 ml 1420 ml 530 ml Output Total 850 ml 300 ml Balance 160 ml 570 ml 230 ml Exam Constitutional: alert, oriented, well developed Psych: nl mood/affect, no complaints Head: atraumatic, normocephalic Eyes: EOMI, PERRL, nl conjunctiva, nl lids, nl sclera ENMT: nl external ears & nose, nl lips & teeth, nl nasal mucosa & septum Neck: non-tender, supple Respiratory: clear to auscultation, normal air movement Cardiovascular: nl pulses, regular rate and rhythm Gastrointestinal: nl liver, spleen, non-tender, soft Musculoskeletal: nl extremities to inspection, nl gait and stance Extremities: normal pulses Neurological: OUTSOLE ROUNDER II-XII intact, nl mental status, nl speech, nl strength Skin: nl turgor, No rash or lesions Lymph: nl lymph nodes Results Result Diagram: 09/17/16 1010 09/17/16 0548 Results 24 hrs Laboratory Tests Test 09/17/16 05:48 09/17/16 10:10 White Blood Count 6.8 Red Blood Count 3.35 L Hemoglobin 10.8 L Hematocrit 34.7 L Mean Corpuscular Volume 103.6 H Mean Corpuscular Hemoglobin 32.2 Mean Corpuscular Hemoglobin Concent 31.1 L Red Cell Distribution Width 16.7 H Platelet Count 168 # 177 Mean Platelet Volume 11.3 H Neutrophils % 62.3 Lymphocytes % 20.2 Monocytes % 10.2 Eosinophils % 5.5 Basophils % 0.3 Nucleated Red Blood Cells % 0.0 Neutrophils # 4.2 Lymphocytes # 1.4 Monocytes # 0.7 Eosinophils # 0.4 Basophils # 0.0 Nucleated Red Blood Cells # 0.0 Sodium Level 141 Potassium Level 3.6 Chloride Level 111 H Carbon Dioxide Level 20 L Anion Gap 14 Blood Urea Nitrogen 8 Creatinine 0.57 Glucose Level 89 Calcium Level 9.0 Prothrombin Time 13.1 Prothrombin Time Ratio 1.0 INR International Normalized Ratio 0.99 Activated Partial Thromboplast Time 47.7 H Thrombin Time 19.6 H Fibrinogen 446.0 Plasma Fibrin Degradation Products <10 D-Dimer 3927.96 H D-Dimer Comment Lactate Dehydrogenase 411 Medications Medications Current Medications Dextrose/Sodium Chloride (D5-1/2ns) 1,000 ml @ 30 mls/hr Q24H IV Last administered on 09/16/16 15:23; Admin Dose 30 MLS/HR; Start 09/15/16 at 00:00 [place] Carbonate ([place] Carbonate) 300 mg QHS PO Last administered on 20:42; Admin Dose 300 MG; Start 09/15/16 at 21:00 Pantoprazole (Protonix Tab) 40 mg DAILY@06 PO Last administered on 09/17/16 05 :31; Admin Dose 40 MG; Start 09/15/16 at 06:00 Paroxetine HCl (Paxil) 20 mg DAILY PO Last administered on 09/17/16 08:35; Admin Dose 20 MG; Start 09/15/16 at 09:00 Sucralfate (Carafate) 1 gm BID PO Last administered on 09/17/16 08:34; Admin Dose 1 GM; Start 09/15/16 at 09:00 Topiramate (Topamax) 50 mg BID PO Last administered on 09/17/16 08:35; Admin Dose 50 MG; Start 09/15/16 at 09:00 Trazodone HCl (Desyrel) 100 mg QHS PO Last administered on 09/16/16 20:42; Admin Dose 100 MG; Start 09/15/16 at 21:00 Heparin Sodium (Porcine) (Heparin (5000 Units/0.5 ml)) 5,000 unit BID SC Last administered on 09/17/16 08:42; Admin Dose 5,000 UNIT; Start 09/15/16 at 09:00 Acetaminophen (Tylenol Tab) 650 mg Q4H PRN PO PAIN AND OR ELEVATED TEMP; Start 09/15/16 at 00:00 Morphine Sulfate (morphine) 2 mg Q4H PRN IV SEVERE PAIN LEVEL 7-10 Last administered on 09/17/16 17:40; Admin Dose 2 MG; Start 09/15/16 at 00:00 Senna (Senokot) 2 tab BID PRN PO CONSTIPATION Last administered on 09/16/16 13 :02; Admin Dose 2 TAB; Start 09/15/16 at 00:00 Amlodipine Besylate (Norvasc) 5 mg DAILY PO Last administered on 09/16/16 08: 44; Admin Dose 5 MG; Start 09/15/16 at 09:00 Ondansetron HCl (Zofran Inj) 4 mg Q4H PRN IV NAUSEA AND/OR VOMITING Last administered on 09/17/16 17:40; Admin Dose 4 MG; Start 09/15/16 at 00:00 HELIO DUNBAR MD September 17, 2016 19:15
[2016-09-17 19:21] VITALS: BP 104/70; RESP 16
[2016-09-17] MEDS: traZODone 100 MG TAB PO SCH (20:48)
[2016-09-17] MEDS: LITHIUM CARBONATE 300 MG CAP PO SCH (20:48)
--- NOTE | 2016-09-17 21:34 | CONS ---
[facility] INITIAL INPATIENT CONSULTATION DATE OF CONSULTATION: 09/17/2016 PLACE OF SERVICE: [facility], 6th floor . IMPRESSION AND PLAN: A very pleasant 36-year-old young lady with multiple comorbidities as outlined below, as well as history of heavy alcohol abuse and at least one episode of pancreatitis, presenting with what appears to be likely a pancreatic pseudocyst, most likely from her pancreatitis and alcohol abuse in the recent past. There is also a chance that this may be a primary pancreatic cyst, which could be a simple pancreatic cyst versus a neoplastic mucinous process. The probabilities are such that the most likely diagnosis is a pseudocyst, which is otherwise fairly asymptomatic. Currently, there is no indication for acute surgical intervention. If the patient has gallbladder or biliary issues, this may necessitate a laparoscopic cholecystectomy, but with the presence of the pseudocyst, my recommendation would be to do further workup of the tail of the pancreas with an endoscopic ultrasound to gain maximal information from this area prior to scheduling the patient for surgical intervention if possible. Depending on endoscopic ultrasound findings, this lesion could be monitored symptomatically versus with further images. On rare occasions in the setting, the endoscopic ultrasound would give enough information to warrant a distal pancreatectomy and splenectomy, but I do not believe that the patient will be part of that cohort of patients. I explained all this in detail with the patient (no family present during any of my discussions with the patient), and answered all her questions to the best of my ability. I believe that the patient understood and agreed with the plan. With above assessment I have recommended the followin. Continue current management with in-house observation and treatment of symptoms. 2. Follow up with Dr. Berry regarding need for ERCP. 3. Once the patient has stabilized, discharge the patient home and schedule her for an outpatient endoscopic ultrasound (since we do not have this technology available in-house). 4. Follow up with me after above is done. Thank you again for allowing us to participate in the care of this very pleasant young lady, and I am certain her wonderful family. If there are any questions, please feel free to contact me at [phone]. UPDATED CLINICAL SUMMARY: The patient is a very pleasant 36-year-old lady with comorbidity of alcohol abuse and one prior pancreatitis about 3 years ago, transferred from an outside hospital to [facility] for management of bile duct inflammation and gallbladder inflammation. COMORBIDITIES: 1. Alcohol abuse with consumption of one bottle of vodka perhaps as early as every 2 days, with a 3-year history of significant drinking, and one prior episode of pancreatitis about 3 years at a hospital that the patient does not remember. No known history of pancreatic pseudocyst, per patient's history. 2. History of epigastric pain leading to upper endoscopy at [facility], March 2016, showing evidence of gastritis with normal esophagus, pathology showing oxyntic mucosa showing mild parietal cell hyperplasia, and no evidence of gastritis, or intestinal metaplasia, dysplasia or malignancy. 3. Depression. 4. Anemia. 5. History of migraines. 6. History of elevated liver function tests (acutely in this timeframe). 7. History of thrombocytopenia. DATE OF ADMISSION: 09/14/2016 HISTORY OF PRESENT ILLNESS: The patient is a very pleasant, 36-year-old lady with above-mentioned comorbidities, who we were kindly asked to consult regarding management of her pancreatic cyst in the tail of the pancreas. This was incidentally discovered during the workup that was initiated at [facility], for abdominal pain management and was also seen at our MRCP at [facility]. dated 09/15/2016. This cyst is measuring at 7.3 x 5.9 cm, and is adjacent to the pancreatic tail. The pancreas appears atrophic. There is also nonspecific dilatation of the common bile duct measuring approximately 11 mm in maximal dimension with mild prominence of intrahepatic biliary ducts. Gallbladder was also distended. No evidence of cholelithiasis, cholecystitis or choledocholithiasis identified. The differential for the pancreatic cyst was that of a pseudocyst versus a cystic pancreatic neoplasm. Note that this was without contrast as an MRCP, and contrast study was recommended. Nonspecific trace amount of upper abdominal ascites was present. Her laboratory values showed a normal white blood cell count of 6.8, platelet count that was initially low in the 80s, but has bounced back to 177, as of today's dictation. Electrolytes were for the most part normal, with a CO2 of 20, creatinine 0.57, total bilirubin 0.7, AST 81, ALT 225 , alkaline phosphatase 208. Albumin 3.0 after hydration. INR 0.99. The patient herself reported mild abdominal pain with some radiation to the left upper side. No ongoing issues with nausea or vomiting, no shortness of breath or chest pain or other major complaints. ALLERGIES: KETOROLAC WITH UNKNOWN REACTION. MEDICATIONS: The patient reportedly was on lithium, Omeprazole, paroxetine, sucralfate, sumatriptan, topiramate, trazodone and Ventolin, as an outpatient. For a detailed list of all of her medications including outpatient and inpatient , please refer to the electronic records. SOCIAL HISTORY: The patient reports above-mentioned heavy alcohol use. No history of significant smoking. No intravenous drug use. FAMILY HISTORY: No mention of major medical, surgical or oncologic problems in the family. REVIEW OF SYSTEMS: Other than the above-mentioned, there are no other pertinent positives or pertinent negatives in a complete 14-point review of systems. PHYSICAL EXAMINATION: GENERAL: The patient appears to be a very pleasant young lady of descent, appearing stated age, lying in bed comfortably and in no acute distress. BMI is 22.3. VITAL SIGNS: Temperature 98.1, blood pressure 96/66, pulse 64, respiratory rate 16, pulse oximetry 97% on room air. HEENT: Normocephalic and atraumatic. Extraocular muscles and hearing are grossly intact bilaterally and symmetrically. Sclerae are nonicteric. Oral cavity is clear; oral mucosa appeared to be pink and moist. Dentition: fair to poor with missing teeth. NECK: Supple. There is no lymphadenopathy or JVD. There is no submental, submandibular or supraclavicular lymphadenopathy. CHEST: Rises symmetrically with each breath; patient is breathing comfortably. There are no audible wheezes, rales or rhonchi on the gross exam. HEART: Pulse is regular and palpable on the left wrist. Capillary refill was normal. Carotid pulses are palpable bilaterally and symmetrically in the neck. EXTREMITIES: Lower extremities contain no pitting edema around the ankles bilaterally and symmetrically. ABDOMEN: Abdomen is soft, nontender and nondistended. There are no peritoneal signs or guarding. No evidence of ascites, organomegaly, caput medusae, engorged subcutaneous veins, or other abnormalities. SKIN: Appears to be pink and feels warm to touch. NEUROLOGIC: Awake, alert, and follows commands appropriately. LABORATORY VALUES: Reviewed above. IMAGING: Reviewed above. Note that I personally reviewed all the available and pertinent images and I agree in general with their overall reported findings. Dictated By: JOSE A SALINAS/OLESYA Conf#: [id number] DID#: [id number] MTDD
[2016-09-18] MEDS: DEXTROSE 5%-0.45% NACL 1,000 ML IV SCH ×2 (03:58)
[2016-09-18 06:10] LABS: ADD SCAN DIFF NO; ALBUMIN 3.4 g/dl (3.3-4.9); BASOPHILS % 0.6 % (0.0-2.0); EOSINOPHILS # 0.4 10^3/ul (0.0-0.5); HEMATOCRIT 38.2 % (37.0-47.0); HEMOGLOBIN 11.7 g/dl (12.0-16.0); LYMPHOCYTES # 1.2 10^3/ul (0.8-2.9); MEAN CORPUSCULAR HEMOGLOBIN 32.1 pg (29.0-33.0); MEAN CORPUSCULAR HGB CONC 30.6 g/dl (32.0-37.0); MEAN CORPUSCULAR VOLUME 104.7 fl (82.0-101.0); MEAN PLATELET VOLUME 11.5 fl (7.4-10.4); MONOCYTE # 0.8 10^3/ul (0.3-0.9); MONOCYTES % 12.4 % (0.0-11.0); NEUTROPHIL # 3.7 10^3/ul (1.6-7.5); NEUTROPHILS % 59.9 % (39.0-77.0); PLATELET COUNT 226 10^3/UL (140-415); RED BLOOD COUNT 3.65 10^6/ul (4.20-5.40); RED CELL DISTRIBUTION WIDTH 16.5 % (11.5-14.5); WHITE BLOOD COUNT 6.2 10^3/ul (4.8-10.8)
[2016-09-18 06:11] LABS: POTASSIUM 3.6 mmol/L (3.5-5.1)
[2016-09-18 06:13] LABS: BILIRUBIN,INDIRECT 0.2 mg/dl (0-1.1); BILIRUBIN,TOTAL 0.2 mg/dl (0.2-1.3); CREATININE 0.64 mg/dl (0.44-1.00)
[2016-09-18 06:14] LABS: CALCIUM 9.1 mg/dl (8.4-10.2); TOTAL PROTEIN 6.8 g/dl (6.1-8.1)
[2016-09-18] MEDS: PANTOPRAZOLE (EC) 40 MG TAB PO SCH (06:29)
[2016-09-18 07:18] VITALS: BP 94/67; RESP 20
[2016-09-18 07:20] VITALS: BP 88/65
[2016-09-18 08:30] VITALS: BP 90/67; PULSE 65
[2016-09-18] MEDS: SUCRALFATE 1 GM TAB PO SCH ×2 (08:31→21:11)
[2016-09-18] MEDS: TOPIRAMATE 25 MG TAB PO SCH ×2 (08:32→21:11)
[2016-09-18] MEDS: AMLODIPINE 5 MG TAB PO SCH (08:32)
[2016-09-18] MEDS: PAROXETINE 20 MG TAB PO SCH (08:32)
[2016-09-18] MEDS: HEPARIN 5,000 UNIT/0.5 ML VIAL SC SCH ×2 (08:42→21:15)
[2016-09-18] MEDS: morphine 2 MG INJ IV PRN ×2 (09:08→17:50)
[2016-09-18] MEDS: ONDANSETRON 4 MG INJ IV PRN ×2 (09:08→17:42)
--- NOTE | 2016-09-18 11:45 | CONS ---
Date/Time of Note Date/Time of Note DATE: 09/18/16 TIME: 11:44 Assessment/Plan Assessment/Plan Additional Assessment/Plan Assessment/Plan Additional Assessment/Plan IMPRESSION: 1. Elevated liver function tests with abdominal pain most probably related to alcoholic liver disease, rule out bile duct stone. 2. Seizure disorder. 3. Depression. 4. Migraine. 5. Anemia. 6. Thrombocytopenia. Improved now back to normal 7. Macrocytosis. 8. Pancreatic cyst most probably a pseudocyst 9. Dilated biliary system without choledocholithiasis Plan Patient may need ERCP, if the pain is persistent She will need EUS for the evaluation of the cyst Consultation Date/Type/Reason Admit Date/Time September 14, 2016 at 21:55 Initial Consult Date 09/15/16 Type of Consultation: Hematology Referring Provider: YASMANI LUND MD 24 HR Interval Summary Free Text/Dictation Patient complains of abdominal pain and nausea Exam/Review of Systems Vital Signs Vitals Vital Signs Date Time Temp Pulse Resp B/P Pulse Ox O2 Delivery O2 Flow Rate FiO2 09/18/16 08:30 65 90/67 09/18/16 07:18 97.9 20 100 09/16/16 20:12 Room Air Intake and Output 09/17/16 09/17/16 09/18/16 15:00 23:00 07:00 Intake Total 680 ml 990 ml Balance 680 ml 990 ml Exam Constitutional: alert, oriented, well developed Psych: nl mood/affect, no complaints Head: atraumatic, normocephalic Eyes: EOMI, PERRL, nl conjunctiva, nl lids, nl sclera ENMT: nl external ears & nose, nl lips & teeth, nl nasal mucosa & septum Neck: non-tender, supple Respiratory: clear to auscultation, normal air movement Cardiovascular: nl pulses, regular rate and rhythm Gastrointestinal: nl liver, spleen, non-tender, soft Musculoskeletal: nl extremities to inspection, nl gait and stance Extremities: normal pulses Neurological: CORRECTIONS CORPORAL II-XII intact, nl mental status, nl speech, nl strength Skin: nl turgor, No rash or lesions Lymph: nl lymph nodes Results Result Diagram: 09/18/1612 09/18/16 0512 Results 24 hrs Laboratory Tests Test 09/18/16 05:12 White Blood Count 6.2 Red Blood Count 3.65 L Hemoglobin 11.7 L Hematocrit 38.2 Mean Corpuscular Volume 104.7 H Mean Corpuscular Hemoglobin 32.1 Mean Corpuscular Hemoglobin Concent 30.6 L Red Cell Distribution Width 16.5 H Platelet Count 226 # Mean Platelet Volume 11.5 H Neutrophils % 59.9 Lymphocytes % 19.0 Monocytes % 12.4 H Eosinophils % 6.0 Basophils % 0.6 Nucleated Red Blood Cells % 0.0 Neutrophils # 3.7 Lymphocytes # 1.2 Monocytes # 0.8 Eosinophils # 0.4 Basophils # 0.0 Nucleated Red Blood Cells # 0.0 Sodium Level 139 Potassium Level 3.6 Chloride Level 107 Carbon Dioxide Level 20 L Anion Gap 16 Blood Urea Nitrogen 13 Creatinine 0.64 Glucose Level 103 Calcium Level 9.1 Total Bilirubin 0.2 Direct Bilirubin 0.00 Indirect Bilirubin 0.2 Aspartate Amino Transf (AST/SGOT) 41 Alanine Aminotransferase (ALT/SGPT) 95 H Alkaline Phosphatase 183 H Total Protein 6.8 Albumin 3.4 Globulin 3.40 H Albumin/Globulin Ratio 1.00 Medications Medications Current Medications Dextrose/Sodium Chloride (D5-1/2ns) 1,000 ml @ 30 mls/hr Q24H IV Last administered on 09/18/16 03:58; Admin Dose 30 MLS/HR; Start 09/15/16 at 00:00 [place] Carbonate ([place] Carbonate) 300 mg QHS PO Last administered on 20:48; Admin Dose 300 MG; Start 09/15/16 at 21:00 Pantoprazole (Protonix Tab) 40 mg DAILY@06 PO Last administered on 09/18/16 06 :29; Admin Dose 40 MG; Start 09/15/16 at 06:00 Paroxetine HCl (Paxil) 20 mg DAILY PO Last administered on 09/18/16 08:32; Admin Dose 20 MG; Start 09/15/16 at 09:00 Sucralfate (Carafate) 1 gm BID PO Last administered on 09/18/16 08:31; Admin Dose 1 GM; Start 09/15/16 at 09:00 Topiramate (Topamax) 50 mg BID PO Last administered on 09/18/16 08:32; Admin Dose 50 MG; Start 09/15/16 at 09:00 Trazodone HCl (Desyrel) 100 mg QHS PO Last administered on 09/17/16 20:48; Admin Dose 100 MG; Start 09/15/16 at 21:00 Heparin Sodium (Porcine) (Heparin (5000 Units/0.5 ml)) 5,000 unit BID SC Last administered on 09/18/16 08:42; Admin Dose 5,000 UNIT; Start 09/15/16 at 09:00 Acetaminophen (Tylenol Tab) 650 mg Q4H PRN PO PAIN AND OR ELEVATED TEMP; Start 09/15/16 at 00:00 Morphine Sulfate (morphine) 2 mg Q4H PRN IV SEVERE PAIN LEVEL 7-10 Last administered on 09/18/16 09:08; Admin Dose 2 MG; Start 09/15/16 at 00:00 Senna (Senokot) 2 tab BID PRN PO CONSTIPATION Last administered on 09/16/16 13 :02; Admin Dose 2 TAB; Start 09/15/16 at 00:00 Amlodipine Besylate (Norvasc) 5 mg DAILY PO Last administered on 09/16/16 08: 44; Admin Dose 5 MG; Start 09/15/16 at 09:00 Ondansetron HCl (Zofran Inj) 4 mg Q4H PRN IV NAUSEA AND/OR VOMITING Last administered on 09/18/16 09:08; Admin Dose 4 MG; Start 09/15/16 at 00:00 HELIO DUNBAR MD September 18, 2016 11:45
--- NOTE | 2016-09-18 12:45 | CONS ---
Date/Time of Note Date/Time of Note DATE: 09/18/16 TIME: 12:43 Assessment/Plan Assessment/Plan Chief Complaint/Hosp Course 36 yo alcoholic initially admitted to [facility] [place] with pancreatitis after binge drinking who is found to be persistently thrombocytopenic now with a platelet count in the 80's which is slightly lower than what was seen at [place] when platelets were in the 90's. Thrombocytopenia has now resolved and platelets are within normal range. #Thrombocytopenia -platelets have now normalized -this is most likely secondary to acute bone marrow suppressive effects from heavy binge drinking. Her non contrast CT done at [place] did not show evidence of cirrhosis but it is likely that a component of hepatocellular disease is contributing to her low platelet count -to rule out other causes of thrombocytopenia, will check a DIC panel and LDH to evaluate for TTP. will also check peripheral smear. Although this is unlikely given normalization of platelet counts -continue to closely monitor platelet count #Pancreatic Cyst -management per GI -pt will likely need an ERCRP -appreciate hepatobiliary recs will sign off for now given platelets have normalized. please call with any further questions Problems: Consultation Date/Type/Reason Admit Date/Time September 14, 2016 at 21:55 Initial Consult Date 09/15/16 Type of Consultation: Hematology Reason for Consultation thrombocytopenia Referring Provider: YASMANI LUND MD 24 HR Interval Summary Free Text/Dictation no acute overnight events. pt still with abdominal pain Exam/Review of Systems Vital Signs Vitals Vital Signs Date Time Temp Pulse Resp B/P Pulse Ox O2 Delivery O2 Flow Rate FiO2 09/18/16 08:30 65 90/67 09/18/16 07:18 97.9 20 100 09/16/16 20:12 Room Air Intake and Output 09/17/16 09/17/16 09/18/16 15:00 23:00 07:00 Intake Total 680 ml 990 ml Balance 680 ml 990 ml Exam Constitutional: alert, oriented Psych: nl mood/affect, no complaints Head: normocephalic Eyes: nl conjunctiva ENMT: nl external ears & nose Neck: non-tender, supple Respiratory: clear to auscultation, normal air movement Cardiovascular: regular rate and rhythm Gastrointestinal: soft Musculoskeletal: nl extremities to inspection, nl gait and stance Extremities: normal pulses Results Result Diagram: 09/18/1651109/18/16511 Results 24 hrs Laboratory Tests Test 5/16/17 05:12 White Blood Count 6.2 Red Blood Count 3.65 L Hemoglobin 11.7 L Hematocrit 38.2 Mean Corpuscular Volume 104.7 H Mean Corpuscular Hemoglobin 32.1 Mean Corpuscular Hemoglobin Concent 30.6 L Red Cell Distribution Width 16.5 H Platelet Count 226 # Mean Platelet Volume 11.5 H Neutrophils % 59.9 Lymphocytes % 19.0 Monocytes % 12.4 H Eosinophils % 6.0 Basophils % 0.6 Nucleated Red Blood Cells % 0.0 Neutrophils # 3.7 Lymphocytes # 1.2 Monocytes # 0.8 Eosinophils # 0.4 Basophils # 0.0 Nucleated Red Blood Cells # 0.0 Sodium Level 139 Potassium Level 3.6 Chloride Level 107 Carbon Dioxide Level 20 L Anion Gap 16 Blood Urea Nitrogen 13 Creatinine 0.64 Glucose Level 103 Calcium Level 9.1 Total Bilirubin 0.2 Direct Bilirubin 0.00 Indirect Bilirubin 0.2 Aspartate Amino Transf (AST/SGOT) 41 Alanine Aminotransferase (ALT/SGPT) 95 H Alkaline Phosphatase 183 H Total Protein 6.8 Albumin 3.4 Globulin 3.40 H Albumin/Globulin Ratio 1.00 Medications Medications Current Medications Dextrose/Sodium Chloride (D5-1/2ns) 1,000 ml @ 30 mls/hr Q24H IV Last administered on 09/18/16 03:58; Admin Dose 30 MLS/HR; Start 09/15/16 at 00:00 [place] Carbonate ([place] Carbonate) 300 mg QHS PO Last administered on 20:48; Admin Dose 300 MG; Start 09/15/16 at 21:00 Pantoprazole (Protonix Tab) 40 mg DAILY@06 PO Last administered on 09/18/16 06 :29; Admin Dose 40 MG; Start 09/15/16 at 06:00 Paroxetine HCl (Paxil) 20 mg DAILY PO Last administered on 09/18/16 08:32; Admin Dose 20 MG; Start 09/15/16 at 09:00 Sucralfate (Carafate) 1 gm BID PO Last administered on 09/18/16 08:31; Admin Dose 1 GM; Start 09/15/16 at 09:00 Topiramate (Topamax) 50 mg BID PO Last administered on 09/18/16 08:32; Admin Dose 50 MG; Start 09/15/16 at 09:00 Trazodone HCl (Desyrel) 100 mg QHS PO Last administered on 09/17/16 20:48; Admin Dose 100 MG; Start 09/15/16 at 21:00 Heparin Sodium (Porcine) (Heparin (5000 Units/0.5 ml)) 5,000 unit BID SC Last administered on 09/18/16 08:42; Admin Dose 5,000 UNIT; Start 09/15/16 at 09:00 Acetaminophen (Tylenol Tab) 650 mg Q4H PRN PO PAIN AND OR ELEVATED TEMP; Start 09/15/16 at 00:00 Morphine Sulfate (morphine) 2 mg Q4H PRN IV SEVERE PAIN LEVEL 7-10 Last administered on 09/18/16 09:08; Admin Dose 2 MG; Start 09/15/16 at 00:00 Senna (Senokot) 2 tab BID PRN PO CONSTIPATION Last administered on 09/16/16 13 :02; Admin Dose 2 TAB; Start 09/15/16 at 00:00 Amlodipine Besylate (Norvasc) 5 mg DAILY PO Last administered on 09/16/16 08: 44; Admin Dose 5 MG; Start 09/15/16 at 09:00 Ondansetron HCl (Zofran Inj) 4 mg Q4H PRN IV NAUSEA AND/OR VOMITING Last administered on 09/18/16 09:08; Admin Dose 4 MG; Start 09/15/16 at 00:00 ULYSSES STEINBERG M.D. September 18, 2016 12:45
[2016-09-18] MEDS: SENNA TAB PO PRN (17:43)
[2016-09-18 17:51] VITALS: BP 112/62; PULSE 85
--- NOTE | 2016-09-18 19:36 | PN ---
Date/Time of Note Date/Time of Note DATE: 09/18/16 TIME: 19:35 Assessment/Plan VTE Prophylaxis VTE Prophylaxis Intervention: other Lines/Catheters IV Catheter Type (from Nrsg): Peripheral IV Urinary Cath still in place: No Assessment/Plan Chief Complaint/Hosp Course ABD PAIN better PANCREATITIS HYPOKALEMIABETTER PSEUDOCYSTS PLAN KCL PER GI AND DR SABA home soon Problems: Subjective 24 Hr Interval Summary Gastrointestinal: pain (better) Genitourinary: no complaints Exam/Review of Systems Vital Signs Vitals Vital Signs Date Time Temp Pulse Resp B/P Pulse Ox O2 Delivery O2 Flow Rate FiO2 09/18/16 17:51 85 112/62 09/18/16 07:18 97.9 20 100 09/16/16 20:12 Room Air Intake and Output 09/17/16 09/17/16 09/18/16 15:00 23:00 07:00 Intake Total 680 ml 990 ml Balance 680 ml 990 ml Exam Respiratory: clear to auscultation Cardiovascular: regular rate and rhythm Gastrointestinal: bowel sounds (+), soft Results Result Diagram: 09/18/16 0512 09/18/16 0512 Results 24 hrs Laboratory Tests Test 09/18/16 05:12 White Blood Count 6.2 Red Blood Count 3.65 L Hemoglobin 11.7 L Hematocrit 38.2 Mean Corpuscular Volume 104.7 H Mean Corpuscular Hemoglobin 32.1 Mean Corpuscular Hemoglobin Concent 30.6 L Red Cell Distribution Width 16.5 H Platelet Count 226 # Mean Platelet Volume 11.5 H Neutrophils % 59.9 Lymphocytes % 19.0 Monocytes % 12.4 H Eosinophils % 6.0 Basophils % 0.6 Nucleated Red Blood Cells % 0.0 Neutrophils # 3.7 Lymphocytes # 1.2 Monocytes # 0.8 Eosinophils # 0.4 Basophils # 0.0 Nucleated Red Blood Cells # 0.0 Sodium Level 139 Potassium Level 3.6 Chloride Level 107 Carbon Dioxide Level 20 L Anion Gap 16 Blood Urea Nitrogen 13 Creatinine 0.64 Glucose Level 103 Calcium Level 9.1 Total Bilirubin 0.2 Direct Bilirubin 0.00 Indirect Bilirubin 0.2 Aspartate Amino Transf (AST/SGOT) 41 Alanine Aminotransferase (ALT/SGPT) 95 H Alkaline Phosphatase 183 H Total Protein 6.8 Albumin 3.4 Globulin 3.40 H Albumin/Globulin Ratio 1.00 Medications Medications Current Medications Dextrose/Sodium Chloride (D5-1/2ns) 1,000 ml @ 30 mls/hr Q24H IV Last administered on 09/18/16 03:58; Admin Dose 30 MLS/HR; Start 09/15/16 at 00:00 [place] Carbonate ([place] Carbonate) 300 mg QHS PO Last administered on 20:48; Admin Dose 300 MG; Start 09/15/16 at 21:00 Pantoprazole (Protonix Tab) 40 mg DAILY@06 PO Last administered on 09/18/16 06 :29; Admin Dose 40 MG; Start 09/15/16 at 06:00 Paroxetine HCl (Paxil) 20 mg DAILY PO Last administered on 09/18/16 08:32; Admin Dose 20 MG; Start 09/15/16 at 09:00 Sucralfate (Carafate) 1 gm BID PO Last administered on 09/18/16 08:31; Admin Dose 1 GM; Start 09/15/16 at 09:00 Topiramate (Topamax) 50 mg BID PO Last administered on 09/18/16 08:32; Admin Dose 50 MG; Start 09/15/16 at 09:00 Trazodone HCl (Desyrel) 100 mg QHS PO Last administered on 09/17/16 20:48; Admin Dose 100 MG; Start 09/15/16 at 21:00 Heparin Sodium (Porcine) (Heparin (5000 Units/0.5 ml)) 5,000 unit BID SC Last administered on 09/18/16 08:42; Admin Dose 5,000 UNIT; Start 09/15/16 at 09:00 Acetaminophen (Tylenol Tab) 650 mg Q4H PRN PO PAIN AND OR ELEVATED TEMP; Start 09/15/16 at 00:00 Morphine Sulfate (morphine) 2 mg Q4H PRN IV SEVERE PAIN LEVEL 7-10 Last administered on 09/18/16 17:50; Admin Dose 2 MG; Start 09/15/16 at 00:00 Senna (Senokot) 2 tab BID PRN PO CONSTIPATION Last administered on 09/18/16 17 :43; Admin Dose 2 TAB; Start 09/15/16 at 00:00 Amlodipine Besylate (Norvasc) 5 mg DAILY PO Last administered on 09/16/16 08: 44; Admin Dose 5 MG; Start 09/15/16 at 09:00 Ondansetron HCl (Zofran Inj) 4 mg Q4H PRN IV NAUSEA AND/OR VOMITING Last administered on 09/18/16 17:42; Admin Dose 4 MG; Start 09/15/16 at 00:00 YASMANI LUND MD September 18, 2016 19:35
--- NOTE | 2016-09-18 19:37 | PDOCDIS ---
Discharge Instructions CONDITION Patient Condition: Stable HOME CARE INSTRUCTIONS: Special Diet: Low chol/fat ACTIVITY: Activity Restrictions: Slowly Increase Activity FOLLOW UP/APPOINTMENTS Appointments f/u own pcp [address] andrew [address] land 2 wks YASMANI LUND MD September 18, 2016 19:37
[2016-09-18] MEDS ORDERED: PANT40TA4 PO (19:40)
[2016-09-18] MEDS ORDERED: HYDR-906 PO (19:40)
[2016-09-18] MEDS ORDERED: ALBU18HF INH (19:40)
[2016-09-18] MEDS ORDERED: AMLO-145 PO (19:40)
[2016-09-18] MEDS ORDERED: SUCR1TAB27 PO (19:40)
[2016-09-18 19:49] VITALS: BP 93/55; RESP 16
[2016-09-18] MEDS: traZODone 100 MG TAB PO SCH (21:11)
[2016-09-18] MEDS: LITHIUM CARBONATE 300 MG CAP PO SCH (21:11)
[2016-09-19] MEDS: DEXTROSE 5%-0.45% NACL 1,000 ML IV SCH
[2016-09-19] MEDS: PANTOPRAZOLE (EC) 40 MG TAB PO SCH (05:53)
[2016-09-19] MEDS: ONDANSETRON 4 MG INJ IV PRN (05:57)
[2016-09-19] MEDS: morphine 2 MG INJ IV PRN ×2 (06:02→10:05)
[2016-09-19] MEDS: SENNA TAB PO PRN (06:11)
[2016-09-19 06:17] LABS: ADD SCAN DIFF NO
[2016-09-19 06:28] LABS: BASOPHILS % 0.7 % (0.0-2.0); EOSINOPHILS # 0.3 10^3/ul (0.0-0.5); EOSINOPHILS % 4.3 % (0.0-7.0); HEMATOCRIT 36.5 % (37.0-47.0); HEMOGLOBIN 11.5 g/dl (12.0-16.0); LYMPHOCYTES # 1.2 10^3/ul (0.8-2.9); MEAN CORPUSCULAR HGB CONC 31.5 g/dl (32.0-37.0); MEAN CORPUSCULAR VOLUME 104.9 fl (82.0-101.0); MEAN PLATELET VOLUME 11.4 fl (7.4-10.4); MONOCYTE # 0.8 10^3/ul (0.3-0.9); MONOCYTES % 13.4 % (0.0-11.0); NEUTROPHIL # 3.4 10^3/ul (1.6-7.5); NEUTROPHILS % 58.2 % (39.0-77.0); PLATELET COUNT 221 10^3/UL (140-415); RED BLOOD COUNT 3.48 10^6/ul (4.20-5.40); RED CELL DISTRIBUTION WIDTH 16.2 % (11.5-14.5); WHITE BLOOD COUNT 5.8 10^3/ul (4.8-10.8)
[2016-09-19 07:27] VITALS: BP 90/54; RESP 18
[2016-09-19] MEDS: PAROXETINE 20 MG TAB PO SCH (08:52)
[2016-09-19] MEDS: SUCRALFATE 1 GM TAB PO SCH (08:52)
[2016-09-19] MEDS: TOPIRAMATE 25 MG TAB PO SCH (08:52)
[2016-09-19] MEDS: AMLODIPINE 5 MG TAB PO SCH (08:52)
[2016-09-19] MEDS: HEPARIN 5,000 UNIT/0.5 ML VIAL SC SCH (09:12)
== END 2016-09-19 11:40 | disposition home or self-care (01) | DRG 439 ==
LOC: MS2 21:55
PROVIDERS: ADMIT Internal Medicine Nephrology; ATTEND Internal Medicine Nephrology
DX: K85.20 Alcohol induced acute pancreatitis without necrosis or infection (principal); K86.3 Pseudocyst of pancreas; D69.6 Thrombocytopenia, unspecified; G40.909 Epilepsy, unspecified, not intractable, without status epilepticus; D64.9 Anemia, unspecified; F32.9 Major depressive disorder, single episode, unspecified; G43.909 Migraine, unspecified, not intractable, without status migrainosus; D75.89 Other specified diseases of blood and blood-forming organs; E87.6 Hypokalemia; R74.8 Abnormal levels of other serum enzymes
CPT/HCPCS: 74181; 80048; 80053; 83615; 85025; 85049; 85362; 85378; 85384; 85610; 85670; 85730; 87081; J1644; J2270; J2405; J7042

== ENCOUNTER 2016-10-26 13:43 | Emergency (ER) | payer OTHER ==
[~2016-10-26] VITALS: Ht 152.4 cm; Wt 52.0 kg
[~2016-10-26 13:43] MED LIST changes: +ALBU18HF INH; +AMLO-145 PO; +HYDR-906 PO; -OMEPRAZOLE; +PANT40TA4 PO; +SUCR1TAB27 PO
[2016-10-26 13:50] VITALS: Ht 152.4 cm; Wt 52.0 kg
[2016-10-26] MEDS ORDERED: SOD CHLORIDE 0.9% 1,000 ML IV STA (14:38)
[2016-10-26] MEDS ORDERED: morphine 4 MG/ML VIAL IV STA (14:38)
[2016-10-26] MEDS ORDERED: ONDANSETRON 4 MG INJ IV STA (14:38)
[2016-10-26 15:25] LABS: ADD SCAN DIFF NO
[2016-10-26 15:27] LABS: BASOPHIL # 0.1 10^3/ul (0.0-0.1); BASOPHILS % 0.7 % (0.0-2.0); EOSINOPHILS # 0.1 10^3/ul (0.0-0.5); EOSINOPHILS % 0.9 % (0.0-7.0); HEMOGLOBIN 11.6 g/dl (12.0-16.0); LYMPHOCYTES % 15.1 % (15.0-51.0); MEAN CORPUSCULAR HEMOGLOBIN 32.4 pg (29.0-33.0); MEAN CORPUSCULAR HGB CONC 32.2 g/dl (32.0-37.0); MEAN CORPUSCULAR VOLUME 100.6 fl (82.0-101.0); MEAN PLATELET VOLUME 10.9 fl (7.4-10.4); MONOCYTE # 0.4 10^3/ul (0.3-0.9); MONOCYTES % 6.4 % (0.0-11.0); NEUTROPHIL # 5.2 10^3/ul (1.6-7.5); NEUTROPHILS % 76.3 % (39.0-77.0); PLATELET COUNT 290 10^3/UL (140-415); RED BLOOD COUNT 3.58 10^6/ul (4.20-5.40); RED CELL DISTRIBUTION WIDTH 14.1 % (11.5-14.5); WHITE BLOOD COUNT 6.8 10^3/ul (4.8-10.8)
[2016-10-26 15:34] LABS: ADD UMIC NO; UR ASCORBIC ACID NEGATIVE (NEGATIVE); UR BILIRUBIN (Dip) NEGATIVE (NEGATIVE); UR BLOOD (Dip) NEGATIVE (NEGATIVE); UR CLARITY CLEAR (CLEAR); UR COLOR YELLOW (YELLOW); UR GLUCOSE (Dip) NEGATIVE (NEGATIVE); UR KETONES (Dip) NEGATIVE (NEGATIVE); UR LEUKOCYTE ESTERASE (Dip) NEGATIVE Leu/ul (NEGATIVE); UR NITRITE (Dip) NEGATIVE (NEGATIVE); UR TOTAL PROTEIN (Dip) NEGATIVE (NEGATIVE); UR UROBILINOGEN (Dip) 1+ mg/dL (NEGATIVE)
--- NOTE | 2016-10-26 15:54 | RADRPT ---
PROCEDURE: Chest Radiograph. CLINICAL INDICATION: Abdominal pain TECHNIQUE: Single frontal chest radiograph. COMPARISON: None available FINDINGS: The cardiomediastinal silhouette is within normal limits. No infiltrate or effusion is seen. Th e bones are intact. IMPRESSION: 1. Unremarkable chest radiograph. RPTAT: KK .Flynn Lloyd MD, MD Date Time Electronically viewed and signed by .Flynn Lloyd MD, on 10/26/2016 15:53 .B/
--- NOTE | 2016-10-26 16:37 | RADRPT ---
PROCEDURE: CT abdomen and pelvis without IV contrast. CLINICAL INDICATION: Abdominal pain TECHNIQUE: CT scan of the abdomen and pelvis without contrast was performed on the [employer] volumetric [address] scanner. The patient was scanned without intravenous contrast. Coronal and sagittal refo rmatted images were obtained from the axial source images. The CTDI vol is 6.73 mGy and the DLP is 3 79.92 mGy-cm. COMPARISON: MRCP from 09/15/2016 FINDINGS: CT abdomen: Mild dependent changes in the lung bases is seen. The remaining lung bases are clear. The heart si ze is not enlarged and is without pericardial thickening or effusion. The liver is normal in size and density and is without focal mass or intrahepatic biliary dilatation . The spleen is normal in size and homogeneous in density. The stomach is grossly unremarkable. a cystic structure is seen once again near the pancreatic tail measuring approximately 2.6 x 2 for 1 x 1.7 cm in size which has decreased compared to the prior examination. Mild limited changes in the adjacent peripancreatic region is seen. The remainder of the pancreas is normal in size and attenu ation. The gallbladder is distended. The common bile duct is dilated measuring 12.4 mm in size and has not changed significantly. The adrenal glands are symmetric and normal. The kidneys are symmetr ically unremarkable as well. Tiny nonobstructing bilateral renal calculi are seen measuring approxim ate 1 mm in size. No obstructive uropathy or mass lesion is seen. The aorta is of normal in caliber. There is no retroperitoneal lymphadenopathy. The jc hepatis region is clear. The large bowel is stool-filled. The small and large bowel and mesentery, as visua lized, are otherwise unremarkable. The normal appendix is identified. CT pelvis: The pelvic organs are normal. A small amount of free fluid is seen. The pelvic sidewalls and inguina l regions are clear. No pelvic mass, lymphadenopathy, or focal fluid collection is seen. No acute inflammation is seen. The urinary bladder is within normal limits. The surrounding osseous structures are unremarkable. No osteolytic or osteoblastic lesion is detect ed. IMPRESSION: 1. Interval decrease in size of a cystic structure near the pancreatic tail which may be sequela fr om prior pancreatitis and may represent a pseudocyst. Mild inflammatory changes of the pancreatic t ail and cystic structure is seen which may represent pancreatitis. Correlation to amylase and lipas e levels may be of value as clinically warranted. 2. Small amount of free fluid in the pelvis. 3. Distended gallbladder with mild to moderate common bile duct dilatation again seen which has not changed significantly. 4. Stool filled large bowel. RPTAT: HPNM Romeo Carpenter Physician Date Time Electronically viewed and signed by Romeo Carpenter Physician on 10/26/2016 16:37 /
[2016-10-26 17:33] LABS: ALBUMIN 3.8 g/dl (3.3-4.9); ALBUMIN/GLOBULIN RATIO 1.52; BILIRUBIN,INDIRECT 0.3 mg/dl (0-1.1); BILIRUBIN,TOTAL 0.3 mg/dl (0.2-1.3); CALCIUM 8.3 mg/dl (8.4-10.2); CREATININE 0.52 mg/dl (0.44-1.00); POTASSIUM 3.6 mmol/L (3.5-5.1); TOTAL PROTEIN 6.3 g/dl (6.1-8.1)
[2016-10-26] MEDS ORDERED: DICLOFENAC SODIUM 37.5 MG/ML VIAL IV STA (17:43)
[2016-10-26] MEDS ORDERED: DIPHENHYDRAMINE 50 MG INJ IV ONE (18:00)
[2016-10-26] MEDS ORDERED: HYDR-906 PO (18:24)
[2016-10-26] MEDS ORDERED: ONDA-43 PO (18:25)
--- NOTE | 2016-10-26 18:34 | ERD ---
ER Documentation Chief Complaint Date/Time DATE: 10/26/16 TIME: 18:28 Chief Complaint Complains of pain to both sides with movement HPI This is a 36-year-old female presents to the ER with upper abdominal pain. Patient states that pain is worse whenever she coughs or eats. She denies any fever or chills. Patient does have nausea and has had diarrhea for the last 2 days when this started. Patient denies any vomiting. Patient states that pain is sharp. Pain that radiates throughout her entire upper abdomen, she has not tried anything for the pain. Patient patient denies any urinary frequency or dysuria. Patient denies chest pain or shortness of breath. Patient denies any trauma. ROS 12 point review of systems was done, all negative except per HPI. Medications Home Meds Active Scripts Ondansetron Hcl* (Zofran*) 4 Mg Tab, 4 MG PO Q4H Y for NAUSEA AND OR VOMITING for 3 Days, TAB Prov:NIKKO WHITTEN 10/26/16 Hydrocodone/Acetaminophen ([place] 5-325 Tablet) 1 Each Tablet, 1 TAB PO Q6H Y for PAIN, #20 TAB Prov:NIKKO WHITTEN 10/26/16 Hydrocodone/Acetaminophen ([place] 5-325 Tablet) 1 Each Tablet, 1 EACH PO q6 hr for 7 Days, TAB Prov:YASMANI LUND MD 09/18/16 Sucralfate (Carafate) 1 Gm Tablet, 1 GM PO BID for 28 Days, TAB Prov:YASMANI LUND MD 09/18/16 Pantoprazole* (Pantoprazole*) 40 Mg Tablet.dr, 40 MG PO DAILY@06 for 28 Days Prov:YASMANI LUND MD 09/18/16 Amlodipine Besylate* (Amlodipine Besylate*) 5 Mg Tablet, 5 MG PO DAILY for 14 Days, TAB Prov:YASMANI LUND MD 09/18/16 Albuterol Sulfate* (Ventolin HFA*) 18 Gm Hfa.aer.ad, 2 PUFF INH Q6HWA RESP THERAPY Y for SHORTNESS OF BREATH for 10 Days Prov:YASMANI LUND MD 09/18/16 Reported Medications [Ventolin] No Conflict Check 03/27/16 [Trazadone] No Conflict Check 03/27/16 [Topiramate] No Conflict Check 03/27/16 [Sumatriptan] No Conflict Check 03/27/16 [Sucralfate 1GM] No Conflict Check 03/27/16 [Paroxetine] No Conflict Check 03/27/16 [Felt] No Conflict Check 03/27/16 Allergies Allergies: Coded Allergies: ketorolac (Verified Allergy, Unknown, ITCHY, RASH, 03/27/16) PMhx/Soc History of Surgery: No Anesthesia Reaction: No Hx Neurological Disorder: Yes (SEIZURES) Hx Respiratory Disorders: No Hx Cardiac Disorders: No Hx Psychiatric Problems: Yes (DEPRESSION, ANXIETY, SI IDEATION WHEN YOUNGER) Hx Miscellaneous Medical Probl: No Hx Alcohol Use: Yes (FEW DAYS AGO) Hx Substance Use: No Hx Tobacco Use: No Physical Exam Vitals Vital Signs Date Time Temp Pulse Resp B/P Pulse Ox O2 Delivery O2 Flow Rate FiO2 10/26/16 13:50 98.3 104 20 121/80 99 Physical Exam GENERAL: The patient is well developed and appropriate for usual state of health , in no apparent distress. HEENT: Atraumatic. CHEST: Clear to auscultation bilaterally. There are no rales, wheezes or rhonchi. HEART: Regular rate and rhythm. No murmurs, clicks, rubs or gallops. ABDOMEN: Soft and nondistended tender to palpation the right upper quadrant and left upper quadrant. Good bowel sounds. No rebound or guarding. No gross peritonitis. No gross organomegaly or masses. No Valadez sign or McBurney point tenderness. BACK: No midline or flank tenderness. NEURO: Alert and oriented. Cranial nerves II through XII are intact. Result Diagram: 10/26/16 1450 10/26/16 1655 Results 24 hrs Laboratory Tests Test 10/26/16 14:50 10/26/16 16:55 White Blood Count 6.810^3/ul Red Blood Count 3.5810^6/ul Hemoglobin 11.6g/dl Hematocrit 36.0% Mean Corpuscular Volume 100.6fl Mean Corpuscular Hemoglobin 32.4pg Mean Corpuscular Hemoglobin Concent 32.2g/dl Red Cell Distribution Width 14.1% Platelet Count 58387^3/UL Mean Platelet Volume 10.9fl Neutrophils % 76.3% Lymphocytes % 15.1% Monocytes % 6.4% Eosinophils % 0.9% Basophils % 0.7% Nucleated Red Blood Cells % 0.0/100WBC Neutrophils # 5.210^3/ul Lymphocytes # 1.010^3/ul Monocytes # 0.410^3/ul Eosinophils # 0.110^3/ul Basophils # 0.110^3/ul Nucleated Red Blood Cells # 0.010^3/ul Urine Color YELLOW Urine Clarity CLEAR Urine pH 7.0 Urine Specific [place] 1.020 Urine Ketones NEGATIVEmg/dL Urine Nitrite NEGATIVEmg/dL Urine Bilirubin NEGATIVEmg/dL Urine Urobilinogen 1+mg/dL Urine Leukocyte Esterase NEGATIVELeu/ul Urine Hemoglobin NEGATIVEmg/dL Urine Glucose NEGATIVEmg/dL Urine Total Protein NEGATIVEmg/dl Sodium Level 137mmol/L Potassium Level 3.6mmol/L Chloride Level 111mmol/L Carbon Dioxide Level 19mmol/L Anion Gap 11 Blood Urea Nitrogen 12mg/dl Creatinine 0.52mg/dl Glucose Level 87mg/dl Calcium Level 8.3mg/dl Total Bilirubin 0.3mg/dl Direct Bilirubin 0.00mg/dl Indirect Bilirubin 0.3mg/dl Aspartate Amino Transf (AST/SGOT) 65IU/L Alanine Aminotransferase (ALT/SGPT) 29IU/L Alkaline Phosphatase 249IU/L Total Protein 6.3g/dl Albumin 3.8g/dl Globulin 2.50g/dl Albumin/Globulin Ratio 1.52 Lipase 213U/L Current Medications Medications (Trade) Dose Ordered Sig/Kevin Route PRN Reason Start Time Stop Time Status Last Admin Dose Admin Sodium Chloride (NS) 1,000 ml @ 1,000 mls/hr Q1H STAT IV 10/26/16 14:38 10/26/16 15:37 DC 10/26/16 14:51 Morphine Sulfate (morphine) 5 mg ONCE STAT IV 10/26/16 14:38 10/26/16 14:41 DC 10/26/16 14:50 Ondansetron HCl (Zofran Inj) 4 mg ONCE STAT IV 10/26/16 14:38 10/26/16 14:41 DC 10/26/16 14:49 Diclofenac Sodium (Dyloject) 37.5 mg ONCE STAT IV 10/26/16 17:43 10/26/16 17:45 DC 10/26/16 18:00 Diphenhydramine HCl (Benadryl) 25 mg ONCE ONCE IV 10/26/16 18:00 10/26/16 18:01 DC 10/26/16 18:00 Procedures/MDM Differential Diagnosis: GERD, gastritis, peptic ulcer disease, pancreatitis, cholecystitis, choledocholithiasis, biliary colic, cholangitis, Xdlf-Fwkh-Whfjad , ACS/[place], Pnuemonia. This is a 36-year-old female presents to the ER with upper abdominal pain. At this time suspicion for acute abdominal etiology is low. Patient did have a past medical history of pancreatitis which is seen on CT scan, however lipase is not elevated. An EKG was done and read by Dr. Spears 93bpm no ST elevation or T-wave inversion. Chest x-ray was also done there was no evidence of pneumonia, pneumothorax or intrathoracic abnormality. Labs are reviewed there was no evidence of leukocytosis, electrolyte abnormality. Patient's vital signs are stable. Etiology of abdominal pain is unknown however suspicion for acute abdomen is low. Patient will be sent home with [place] and with [facility]. She is to follow-up with her primary care doctor within 1-2 days or return to ER sooner if symptoms worsen. My medical decision making shared with the patient she understands and agrees with plan. Departure Diagnosis: Primary Impression: Abdominal pain Condition: Stable Patient Instructions: Abdominal Pain Additional Instructions: Call your primary care doctor TOMORROW for an appointment during the next 1-2 days.See the doctor sooner or return here if your condition worsens before your appointment time. NIKKO WHITTEN Oct 26, 2016 18:34
[2016-10-26 18:55] VITALS: BP 108/52; PULSE 72; RESP 20
== END 2016-10-26 18:55 | disposition home or self-care (01) ==
LOC: FTE 13:43
DX: R10.11 Right upper quadrant pain (principal); R10.12 Left upper quadrant pain; R11.0 Nausea
CPT/HCPCS: 36415; 71010; 74176; 80053; 81003; 83690; 85025; 93005; 96374; 96375; J1200; J2270; J2405; J7030; Z7502; Z7610

== ENCOUNTER 2016-12-26 04:43 | Emergency (ER) | payer OTHER ==
[~2016-12-26] VITALS: Ht 152.4 cm; Wt 50.5 kg
[~2016-12-26 04:43] MED LIST changes: +ONDA-43 PO
[2016-12-26 04:47] VITALS: Ht 152.4 cm; Wt 50.5 kg
[2016-12-26] MEDS ORDERED: ONDANSETRON 4 MG INJ IV STA (06:09)
[2016-12-26] MEDS ORDERED: morphine 4 MG/ML VIAL IV STA ×2 (06:09→09:04)
[2016-12-26] MEDS ORDERED: SOD CHLORIDE 0.9% 1,000 ML IV STA (06:09)
[2016-12-26 06:57] LABS: URINE BLOOD (Dip) POC Negative (NEGATIVE)
--- NOTE | 2016-12-26 07:25 | ERD ---
ER Documentation Chief Complaint Date/Time DATE: 12/26/16 TIME: 07:17 Chief Complaint left rib pain x 1 month pain increases every cough and blowing of nose HPI This is a 36 year old female presenting to ER with 1 month of left lower back and flank pain. Patient states pain is intermittent and rates pain 10/10. Patient states pain is worse with coughing and blowing her nose. Patient states she is unable to take deep breaths due to pain. Patient states she has been her doctor in the ER for treatment and was told that it was "not a kidney stone" and patient was sent home. Patient states she continues to have pain. Patient had 2 episodes of vomiting yesterday. Nonbloody nonbilious emesis. Patient also reports some acid reflux. No dysuria or gross hematuria. No injury or trauma to area. Patient denies heavy lifting. No cough or chest pain. No shortness of breath or difficulty breathing. ROS All systems reviewed and are negative except as per history of present illness. Medications Home Meds Active Scripts Hydrocodone/Acetaminophen ([place] 5-325 Tablet) 1 Each Tablet, 1 TAB PO Q6H Y for PAIN, #7 TAB Prov:ARNOLD LEYVA NP 12/26/16 Ondansetron Hcl* (Zofran*) 4 Mg Tablet, 4 MG PO Q6H for NAUSEA AND/OR VOMITING, #15 TAB Prov:ARNOLD LEYVA NP 12/26/16 Ondansetron Hcl* (Zofran*) 4 Mg Tab, 4 MG PO Q4H Y for NAUSEA AND OR VOMITING for 3 Days, TAB Prov:NIKKO WHITTEN 10/26/16 Hydrocodone/Acetaminophen ([place] 5-325 Tablet) 1 Each Tablet, 1 TAB PO Q6H Y for PAIN, #20 TAB Prov:NIKOK WHITTEN 10/26/16 Hydrocodone/Acetaminophen ([place] 5-325 Tablet) 1 Each Tablet, 1 EACH PO q6 hr for 7 Days, TAB Prov:YASMANI LUND MD 09/18/16 Sucralfate (Carafate) 1 Gm Tablet, 1 GM PO BID for 28 Days, TAB Prov:YASMANI LUND MD 09/18/16 Pantoprazole* (Pantoprazole*) 40 Mg Tablet.dr, 40 MG PO DAILY@06 for 28 Days Prov:YASMANI LUND MD 09/18/16 Amlodipine Besylate* (Amlodipine Besylate*) 5 Mg Tablet, 5 MG PO DAILY for 14 Days, TAB Prov:YASMANI LUND MD 09/18/16 Albuterol Sulfate* (Ventolin HFA*) 18 Gm Hfa.aer.ad, 2 PUFF INH Q6HWA RESP THERAPY Y for SHORTNESS OF BREATH for 10 Days Prov:YASMANI LUND MD 09/18/16 Reported Medications [Ventolin] No Conflict Check 03/27/16 [Trazadone] No Conflict Check 03/27/16 [Topiramate] No Conflict Check 03/27/16 [Sumatriptan] No Conflict Check 03/27/16 [Sucralfate 1GM] No Conflict Check 03/27/16 [Paroxetine] No Conflict Check 03/27/16 [[place]] No Conflict Check 03/27/16 Discontinued Scripts Hydrocodone/Acetaminophen ([place] 5-325 Tablet) 1 Each Tablet, 1 TAB PO Q6H Y for PAIN, #15 TAB Prov:ARNOLD LEYVA NP 12/26/16 Allergies Allergies: Coded Allergies: No Known Allergy (Unverified , 12/26/16) PMhx/Soc History of Surgery: No Anesthesia Reaction: No Hx Neurological Disorder: Yes (SEIZURES) Hx Respiratory Disorders: No Hx Cardiac Disorders: No Hx Psychiatric Problems: Yes (DEPRESSION, ANXIETY, SI IDEATION WHEN YOUNGER) Hx Miscellaneous Medical Probl: No Hx Alcohol Use: Yes (SOCIALLY) Hx Substance Use: No Hx Tobacco Use: No Smoking Status: Never smoker Physical Exam Vitals Vital Signs Date Time Temp Pulse Resp B/P Pulse Ox O2 Delivery O2 Flow Rate FiO2 12/26/16 09:31 98.6 94 16 131/96 100 Room Air 12/26/16 04:47 97.8 98 20 131/92 100 Physical Exam Const: No acute distress, alert Head: Atraumatic Eyes: Normal Conjunctiva ENT: Normal External Ears, Nose and Mouth. Neck: Full range of motion..~ No meningismus. Resp: Clear to auscultation bilaterally. No wheezing, rhonchi or crackles. No stridor or labored breathing. Patient is talking in complete sentences. Cardio: Regular rate and rhythm, no murmurs. No chest wall tenderness Abd: Soft, non tender, non distended. Normal bowel sounds. Negative Valadez sign. Negative rebound tenderness. Skin: No petechiae or rashes Back: No midline or flank tenderness. No CVA tenderness. Ext: No cyanosis, or edema Neur: Awake and alert Psych: Normal Mood and Affect Result Diagram: 12/26/16 0635 12/26/16 0635 Results 24 hrs Laboratory Tests Test 12/26/16 06:35 12/26/16 07:02 White Blood Count 6.910^3/ul Red Blood Count 3.9110^6/ul Hemoglobin 11.7g/dl Hematocrit 37.2% Mean Corpuscular Volume 95.1fl Mean Corpuscular Hemoglobin 29.9pg Mean Corpuscular Hemoglobin Concent 31.5g/dl Red Cell Distribution Width 15.0% Platelet Count 08784^3/UL Mean Platelet Volume 10.6fl Neutrophils % 70.8% Lymphocytes % 19.5% Monocytes % 6.5% Eosinophils % 1.9% Basophils % 0.7% Nucleated Red Blood Cells % 0.0/100WBC Neutrophils # (Manual) 510^3/ul Lymphocytes # 1.410^3/ul Monocytes # 0.510^3/ul Eosinophils # 0.110^3/ul Basophils # 0.110^3/ul Nucleated Red Blood Cells # 0.010^3/ul Sodium Level 145mmol/L Potassium Level 3.3mmol/L Chloride Level 105mmol/L Carbon Dioxide Level 21mmol/L Anion Gap 22 Blood Urea Nitrogen 18mg/dl Creatinine 0.56mg/dl Glucose Level 105mg/dl Calcium Level 9.5mg/dl Total Bilirubin 0.1mg/dl Direct Bilirubin 0.00mg/dl Indirect Bilirubin 0.1mg/dl Aspartate Amino Transf (AST/SGOT) 21IU/L Alanine Aminotransferase (ALT/SGPT) 17IU/L Alkaline Phosphatase 118IU/L Total Protein 7.7g/dl Albumin 4.0g/dl Globulin 3.70g/dl Albumin/Globulin Ratio 1.08 Lipase 400U/L Bedside Urine pH (LAB) 7.0 Bedside Urine Protein (LAB) 1+ Bedside Urine Glucose (UA) Negative Bedside Urine Ketones (LAB) Negative Bedside Urine Blood Negative Bedside Urine Nitrite (LAB) Negative Bedside Urine Leukocyte Esterase (L Negative Current Medications Medications (Trade) Dose Ordered Sig/Kevin Route PRN Reason Start Time Stop Time Status Last Admin Dose Admin Sodium Chloride (NS) 1,000 ml @ 1,000 mls/hr Q1H STAT IV 12/26/16 06:09 12/26/16 07:08 DC 12/26/16 06:47 Morphine Sulfate (morphine) 4 mg ONCE STAT IV 12/26/16 06:09 12/26/16 06:11 DC 12/26/16 06:48 Ondansetron HCl (Zofran Inj) 4 mg ONCE STAT IV 12/26/16 06:09 12/26/16 06:11 DC 12/26/16 06:47 Morphine Sulfate (morphine) 4 mg ONCE STAT IV 12/26/16 09:04 12/26/16 09:05 DC 12/26/16 09:20 Procedures/MDM [place] [address] [facility] Main Line: [phone] DIAGNOSTIC IMAGING REPORT Patient: DEAN LOGAN : 1980 Age: 36 Sex: F MR #: [id number] DOS: 12/26/16608 Ordering MD: ARNOLD LEYVA NP Location: [facility] Room/Bed: PROCEDURE: Chest Radiograph. CLINICAL INDICATION: Abdominal pain TECHNIQUE: Single frontal chest radiograph. COMPARISON: None available FINDINGS: The cardiomediastinal silhouette is within normal limits. No infiltrate or effusion is seen. The bones are intact. IMPRESSION: 1. Unremarkable chest radiograph. [place] [address] [facility] Main Line: [phone] DIAGNOSTIC IMAGING REPORT Patient: DEAN LOGAN : 1980 Age: 36 Sex: F MR #: [id number] DOS: 12/26/16608 Ordering MD: ARNOLD LEYVA NP Location: [facility] Room/Bed: PROCEDURE: Abdominal Ultrasound (right upper quadrant). CLINICAL INDICATION: Abdominal pain TECHNIQUE: Multiple real-time longitudinal and transverse images of the right upper quadrant of the abdomen were acquired utilizing a curved array transducer. Images were reviewed on a high-resolution PACS workstation. COMPARISON: None FINDINGS: The liver is normal in size and echogenicity. No focal masses are identified. There is mild common bile duct dilatation. The common bile duct measures 9.5 mm in diameter. The gallbladder is distended. No definite gallstones are seen. There is no gallbladder wall thickening. The visualized portions of the pancreas are unremarkable with obscuration of the tail of the pancreas. No free fluid is identified. There is no evidence of right hydronephrosis or renal calcification. The right kidney measures 10.0 cm in length. The visualized portions of the aorta and inferior vena cava are within normal limits. IMPRESSION: 1. Mild common bile duct dilatation measuring up to 9.5 mm. Recommend correlation with serum bilirubin. 2. Distended gallbladder without evidence of gallstones or gallbladder wall thickening. 3. Otherwise unremarkable right upper quadrant ultrasound. [place] [address] [facility] Main Line: [phone] DIAGNOSTIC IMAGING REPORT Patient: DEAN LOGAN : 1980 Age: 36 Sex: F MR #: [id number] DOS: 12/26/16 0609 Ordering MD: ARNOLD LEYVA NP Location: [facility] Room/Bed: PROCEDURE: CT Abdomen and Pelvis without contrast. CLINICAL INDICATION: Abdominal pain. TECHNIQUE: Routine axial tomographic images of the abdomen and pelvis were obtained from the domes the diaphragm to the symphysis pubis. The patient was scanned withoutoral or intravenous contrast. Coronal and sagittal reformatted images were obtained from the axial source images. Images were reviewed on a high-resolution PACS workstation. The total exam CTDI equals 5.11 mGy and the total exam DLP equals 283.66 mGy-cm. One or more of the following dose reduction techniques were used: Automated exposure control, adjustment of the mA and / or kV according to patient size, or use of iterative reconstruction technique. COMPARISON: CT abdomen and pelvis dated 10/26/2016 FINDINGS: The visualized portions of the lung bases are clear. Evaluation of the intra-abdominal solid organs is somewhat limited on this noncontrast examination. The liver appears normal in size. There is no intrahepatic biliary dilatation. The common bile duct measures 10 mm in diameter. The gallbladder is distended. The spleen is enlarged. There is a 1.6 x 1.5 x 4.4 cm fluid collection along the inferior and lateral margin of the splenic capsule. There is mild perisplenic free fluid and mild perisplenic fat stranding. Again noted is a cystic structure in the tail of the pancreas measuring 2.6 x 2.0 x 1.2 cm. There is focal mesenteric fat stranding along the gastrocolic ligament. The kidneys are symmetric in size. No renal, ureteral, or bladder calculi are identified. No perinephric inflammatory changes are identified. The urinary bladder is grossly unremarkable. The bowel demonstrates normal course and caliber. There is no evidence of bowel obstruction. There is moderate volume stool throughout the colon. The appendix is normal in appearance. The uterus and adnexa are unremarkable. There is a tampon within the endovaginal canal. Small free fluid is seen within the pelvis. No intraperitoneal free air, or abscess is identified. No retroperitoneal, mesenteric, or inguinal lymphadenopathy is identified. The aorta is normal in caliber. The osseous structures are unremarkable. No significant subcutaneous soft tissue abnormalities are seen. IMPRESSION: 1. Limited noncontrast CT of the abdomen and pelvis. Again noted is a cystic structure in the tail of the pancreas, measuring 2.6 x 2.0 x 1.2 cm, slightly decreased in size when compared to the prior examination. Findings may reflect an intrapancreatic pseudocyst or cystic neoplasm. Correlation with history of pancreatitis is required. There is focal mesenteric fat stranding within the gastrocolic ligament (anterior to the pancreatic tail) suggesting acute inflammation. This is a new finding when compared to the prior examination. Consider contrast enhanced CT for further evaluation. 2. Splenomegaly. There is a 1.6 x 1.5 x 4.4 cm splenic subcapsular fluid collection. Findings may reflect additional pseudocyst. Infection or sequela of splenic vein thrombosis in the setting of prior pancreatitis is not excluded. This can also be further evaluated with contrast enhanced CT to ensure patency of the splenic vein. 3. Gallbladder distension and dilatation of the common bile duct measuring 10 mm. Findings are stable when compared to prior examinations. 4. Moderate volume stool throughout the colon. Clinical correlation for constipation recommended. 5. Small free fluid in the pelvis. MDM: This is a 36-year-old female presenting to emergency department with left lower back and left flank pain 1 month. Pain is aggravated by coughing and taking deep breaths. Patient has been seen twice by her doctor and an outside ER. No dysuria or gross hematuria. CBC shows Hgb 11.7 otherwise no significant abnormality. CMP shows potassium 3.3, lipase 400. Normal liver enzymes. IV access obtained per staff midwife. Patient given morphine 4 mg IV and Zofran 4 mg IV. Patient also given 1 L fluid bolus of normal saline. Urine dip shows 1+ protein. Urine is negative. Chest x-ray reviewed by radiologist as unremarkable. Gallbladder ultrasound reviewed by radiologist as mild common bile duct dilatation measuring up to set 9.5 mm. Distended gallbladder without evidence of gallstones or gallbladder wall thickening. CT abdomen and pelvis reviewed by radiologist as cystic structure in the tail of the pancreas, measuring 2.6 x 2.0 x 1.2 cm, slightly decreased in size when compared to the prior examination. Findings may reflect an intrapancreatic pseudocyst or cystic neoplasm. There is focal mesenteric fat stranding within the gastrocolic ligament (anterior to the pancreatic tail) suggesting acute inflammation. This is a new finding when compared to the prior examination. Consider contrast enhanced CT for further evaluation. Splenomegaly. There is a 1.6 x 1.5 x 4.4 cm splenic subcapsular fluid collection. Gallbladder distension and dilatation of the common bile duct measuring 10 mm. Moderate volume stool throughout the colon. Clinical correlation for constipation recommended.consulted Dr. Starr regarding this patient. We agree that patient is appropriate for outpatient management. Dr. Starr also examined patient at bedside. Upon reassessment, patient continues to have pain and patient given another dose of morphine 4 mg and Zofran 4 mg IV. Patient appears stable and alert throughout ED visit. Patient's pain is now tolerable. Patient is appropriate for outpatient management instructed to follow-up with primary care provider and given instructions to follow-up with Dr. Rodrigo Mojica for further management. Resources provided with discharge paperwork. Return to ED for any high fever, chest pain, difficulty breathing, shortness breath, wheezing, vomiting, diarrhea, abdominal pain or any new or worsening symptoms. Patient verbalizes understanding. All questions answered at discharge. Departure Diagnosis: Primary Impression: Abdominal pain Abdominal location: generalized Qualified Code: R10.84 - Generalized abdominal pain Condition: Stable AUTUMNDAVIDARNOLDJAMIE Frausto NP Dec 26, 2016 07:24
[2016-12-26 07:38] LABS: BASOPHIL # 0.1 10^3/ul (0.0-0.1); BASOPHILS % 0.7 % (0.0-2.0); EOSINOPHILS # 0.1 10^3/ul (0.0-0.5); EOSINOPHILS % 1.9 % (0.0-7.0); HEMATOCRIT 37.2 % (37.0-47.0); HEMOGLOBIN 11.7 g/dl (12.0-16.0); LYMPHOCYTES # 1.4 10^3/ul (0.8-2.9); LYMPHOCYTES % 19.5 % (15.0-51.0); MEAN CORPUSCULAR HEMOGLOBIN 29.9 pg (29.0-33.0); MEAN CORPUSCULAR HGB CONC 31.5 g/dl (32.0-37.0); MEAN CORPUSCULAR VOLUME 95.1 fl (82.0-101.0); MEAN PLATELET VOLUME 10.6 fl (7.4-10.4); MONOCYTE # 0.5 10^3/ul (0.3-0.9); MONOCYTES % 6.5 % (0.0-11.0); NEUTROPHILS % 70.8 % (39.0-77.0); PLATELET COUNT 267 10^3/UL (140-415); RED BLOOD COUNT 3.91 10^6/ul (4.20-5.40); WHITE BLOOD COUNT 6.9 10^3/ul (4.8-10.8)
--- NOTE | 2016-12-26 07:40 | RADRPT ---
PROCEDURE: Abdominal Ultrasound (right upper quadrant). CLINICAL INDICATION: Abdominal pain TECHNIQUE: Multiple real-time longitudinal and transverse images of the right upper quadrant of th e abdomen were acquired utilizing a curved array transducer. Images were reviewed on a high-resoluti on PACS workstation. COMPARISON: None FINDINGS: The liver is normal in size and echogenicity. No focal masses are identified. There is mild commo n bile duct dilatation. The common bile duct measures 9.5 mm in diameter. The gallbladder is disten ded. No definite gallstones are seen. There is no gallbladder wall thickening. The visualized portions of the pancreas are unremarkable with obscuration of the tail of the pancrea s. No free fluid is identified. There is no evidence of right hydronephrosis or renal calcification. The right kidney measures 10.0 cm in length. The visualized portions of the aorta and inferior vena cava are within normal limits. IMPRESSION: 1. Mild common bile duct dilatation measuring up to 9.5 mm. Recommend correlation with serum bilir ubin. 2. Distended gallbladder without evidence of gallstones or gallbladder wall thickening. 3. Otherwise unremarkable right upper quadrant ultrasound. RPTAT: HJBF .Flynn Lloyd MD, Date Time Electronically viewed and signed by .Flynn Lloyd MD, MD on 12/26/2016 07:39 .B/
[2016-12-26 07:58] LABS: ALBUMIN/GLOBULIN RATIO 1.08; BILIRUBIN,INDIRECT 0.1 mg/dl (0-1.1); BILIRUBIN,TOTAL 0.1 mg/dl (0.2-1.3); CALCIUM 9.5 mg/dl (8.4-10.2); CREATININE 0.56 mg/dl (0.44-1.00); POTASSIUM 3.3 mmol/L (3.5-5.1); TOTAL PROTEIN 7.7 g/dl (6.1-8.1)
--- NOTE | 2016-12-26 07:58 | RADRPT ---
PROCEDURE: Chest Radiograph. CLINICAL INDICATION: Abdominal pain TECHNIQUE: Single frontal chest radiograph. COMPARISON: None available FINDINGS: The cardiomediastinal silhouette is within normal limits. No infiltrate or effusion is seen. Th e bones are intact. IMPRESSION: 1. Unremarkable chest radiograph. RPTAT: HJBF .Flynn Lloyd MD, MD Date Time Electronically viewed and signed by .Flynn Lloyd MD, on 12/26/2016 07:58 .B/
--- NOTE | 2016-12-26 08:06 | RADRPT ---
PROCEDURE: CT Abdomen and Pelvis without contrast. CLINICAL INDICATION: Abdominal pain. TECHNIQUE: Routine axial tomographic images of the abdomen and pelvis were obtained from the domes the diaphragm to the symphysis pubis. The patient was scanned withoutoral or intravenous contrast. Coronal and sagittal reformatted images were obtained from the axial source images. Images were re viewed on a high-resolution PACS workstation. The total exam CTDI equals 5.11 mGy and the total exam DLP equals 283.66 mGy-cm. One or more of the following dose reduction techniques were used: Autom ated exposure control, adjustment of the mA and / or kV according to patient size, or use of iterati ve reconstruction technique. COMPARISON: CT abdomen and pelvis dated 10/26/2016 FINDINGS: The visualized portions of the lung bases are clear. Evaluation of the intra-abdominal solid or son is somewhat limited on this noncontrast examination. The liver appears normal in size. There is no intrahepatic biliary dilatation. The common bile duct measures 10 mm in diameter. The gallblad khushboo is distended. The spleen is enlarged. There is a 1.6 x 1.5 x 4.4 cm fluid collection along the inferior and lateral margin of the splenic capsule. There is mild perisplenic free fluid and mild perisplenic fat stranding. Again noted is a cystic structure in the tail of the pancreas measuring 2.6 x 2.0 x 1.2 cm. There is focal mesenteric fat stranding along the gastrocolic ligament. The kidneys are symmetric in size. No renal, ureteral, or bladder calculi are identified. No perine phric inflammatory changes are identified. The urinary bladder is grossly unremarkable. The bowel demonstrates normal course and caliber. There is no evidence of bowel obstruction. There is moderate volume stool throughout the colon. The appendix is normal in appearance. The uterus and adnexa are unremarkable. There is a tampon within the endovaginal canal. Small free fluid is seen within the pelvis. No intraperitoneal free air, or abscess is identified. No retroperitoneal, mese nteric, or inguinal lymphadenopathy is identified. The aorta is normal in caliber. The osseous structures are unremarkable. No significant subcutaneous soft tissue abnormalities are seen. IMPRESSION: 1. Limited noncontrast CT of the abdomen and pelvis. Again noted is a cystic structure in the tail of the pancreas, measuring 2.6 x 2.0 x 1.2 cm, slightly decreased in size when compared to the prio r examination. Findings may reflect an intrapancreatic pseudocyst or cystic neoplasm. Correlation with history of pancreatitis is required. There is focal mesenteric fat stranding within the gastro colic ligament (anterior to the pancreatic tail) suggesting acute inflammation. This is a new findi ng when compared to the prior examination. Consider contrast enhanced CT for further evaluation. 2. Splenomegaly. There is a 1.6 x 1.5 x 4.4 cm splenic subcapsular fluid collection. Findings may reflect additional pseudocyst. Infection or sequela of splenic vein thrombosis in the setting of p rior pancreatitis is not excluded. This can also be further evaluated with contrast enhanced CT to ensure patency of the splenic vein. 3. Gallbladder distension and dilatation of the common bile duct measuring 10 mm. Findings are sta ble when compared to prior examinations. 4. Moderate volume stool throughout the colon. Clinical correlation for constipation recommended. 5. Small free fluid in the pelvis. RPTAT: HH .Gayle Smith MD, MD Date Time Electronically viewed and signed by .Gayle Smith MD, on 12/26/2016 08:06 .G/
[2016-12-26] MEDS ORDERED: ONDA4TAB8 PO (08:52)
[2016-12-26] MEDS ORDERED: HYDR-906 PO ×2 (08:52→09:15)
[2016-12-26 09:31] VITALS: BP 131/96; PULSE 94; RESP 16; TEMP 98.6
== END 2016-12-26 09:40 | disposition home or self-care (01) ==
LOC: FTE 04:43
DX: R10.84 Generalized abdominal pain (principal); R11.10 Vomiting, unspecified
CPT/HCPCS: 36415; 71010; 74176; 76705; 80053; 81003; 83690; 85025; 96361; 96374; 96375; 96376; J2270; J2405; J7030; Z7502

== ENCOUNTER 2017-01-04 15:00 | Emergency (ER) | payer OTHER ==
[~2017-01-04] VITALS: Ht 154.9 cm; Wt 48.5 kg
[~2017-01-04 15:00] MED LIST changes: +ONDA4TAB8 PO
[2017-01-04 15:15] VITALS: Ht 154.9 cm; Wt 48.5 kg
[2017-01-04] MEDS ORDERED: SOD CHLORIDE 0.9% 1,000 ML IV STA (17:14)
[2017-01-04] MEDS ORDERED: morphine 2 MG INJ IV STA (17:14)
[2017-01-04] MEDS ORDERED: ONDANSETRON 4 MG INJ IV STA (17:14)
[2017-01-04 18:17] LABS: BASOPHIL # 0.1 10^3/ul (0.0-0.1); BASOPHILS % 1.9 % (0.0-2.0); EOSINOPHILS # 0.1 10^3/ul (0.0-0.5); EOSINOPHILS % 2.4 % (0.0-7.0); HEMOGLOBIN 12.7 g/dl (12.0-16.0); LYMPHOCYTES # 1.2 10^3/ul (0.8-2.9); LYMPHOCYTES % 32.4 % (15.0-51.0); MEAN CORPUSCULAR HEMOGLOBIN 28.5 pg (29.0-33.0); MEAN CORPUSCULAR HGB CONC 29.5 g/dl (32.0-37.0); MEAN CORPUSCULAR VOLUME 96.4 fl (82.0-101.0); MEAN PLATELET VOLUME 10.2 fl (7.4-10.4); MONOCYTE # 0.3 10^3/ul (0.3-0.9); MONOCYTES % 8.8 % (0.0-11.0); NEUTROPHILS % 54.2 % (39.0-77.0); PLATELET COUNT 353 10^3/UL (140-415); RED BLOOD COUNT 4.46 10^6/ul (4.20-5.40); WHITE BLOOD COUNT 3.7 10^3/ul (4.8-10.8)
--- NOTE | 2017-01-04 18:18 | RADRPT ---
PROCEDURE: Renal US. CLINICAL INDICATION: Flank pain TECHNIQUE: Multiple sonographic images of the kidneys were obtained. The images were reviewed on a PACS workstation. COMPARISON: Noncontrast CT abdomen and pelvis 12/26/2016 FINDINGS: Right kidney: Normal in size, contour and echogenicity. No mass, calculus or hydronephrosis is pre sent. The blood flow on Doppler interrogation is normal. Renal size is estimated at 9.5 x 3.9 x 3. 3 cm. Left kidney: Normal in size, contour and echogenicity. No mass, calculus or hydronephrosis is pres ent. The small calculi are visible on the prior CT are not evident on ultrasound. Renal size is es timated at 10.6 x 4.8 x 3.6 cm. Urinary bladder: No abnormalities of significance are seen. The bladder volume is measured at 14.8 cc RPTAT:HJJR IMPRESSION: 1. Unremarkable renal ultrasound, the left renal calculi on the CT of 12/26/2016 are not evident. Physician Adolfo Date Time Electronically viewed and signed by Physician Adolfo on 01/04/2017 18:17 /
[2017-01-04 18:19] LABS: ADD UMIC NO; UR ASCORBIC ACID NEGATIVE (NEGATIVE); UR BILIRUBIN (Dip) NEGATIVE (NEGATIVE); UR BLOOD (Dip) NEGATIVE (NEGATIVE); UR CLARITY SLIGHTLY CLOUDY (CLEAR); UR COLOR YELLOW (YELLOW); UR GLUCOSE (Dip) NEGATIVE (NEGATIVE); UR KETONES (Dip) NEGATIVE (NEGATIVE); UR LEUKOCYTE ESTERASE (Dip) NEGATIVE Leu/ul (NEGATIVE); UR MUCUS FEW /HPF (NONE SEEN); UR NITRITE (Dip) NEGATIVE (NEGATIVE); UR RBC 1 /HPF (0-5); UR SPECIFIC GRAVITY (Dip) 1.035 (1.003-1.030); UR SQUAMOUS EPITHELIAL CELL FEW /HPF (FEW); UR TOTAL PROTEIN (Dip) NEGATIVE (NEGATIVE); UR UROBILINOGEN (Dip) NEGATIVE (NEGATIVE)
[2017-01-04 18:35] LABS: ALBUMIN 4.6 g/dl (3.3-4.9); ALBUMIN/GLOBULIN RATIO 1.24; BILIRUBIN,INDIRECT 0.2 mg/dl (0-1.1); BILIRUBIN,TOTAL 0.2 mg/dl (0.2-1.3); CALCIUM 9.6 mg/dl (8.4-10.2); CREATININE 0.66 mg/dl (0.44-1.00); POTASSIUM 3.7 mmol/L (3.5-5.1); TOTAL PROTEIN 8.3 g/dl (6.1-8.1)
[2017-01-04] MEDS ORDERED: KETOROLAC 30 MG INJ IV STA (18:46)
[2017-01-04] MEDS ORDERED: ONDA4TAB14 PO (18:49)
[2017-01-04] MEDS ORDERED: HYDR-906 PO (18:49)
--- NOTE | 2017-01-04 18:53 | ERD ---
ER Documentation Chief Complaint Date/Time DATE: 01/04/17 TIME: 18:50 Chief Complaint Patient states left flank pain x 4 days HPI Patient is a 36-year-old female who presents with left flank pain that she has had for about a month. She was seen here in December 26 and had a complete workup including blood work, ultrasound, chest x-ray, and CT scan which showed no emergent findings. She continues to have left flank pain with nausea and vomiting. She also states she has dysuria but denies any hematuria or frequency. Last menstrual period was one half weeks ago. ROS All systems reviewed and are negative except as per history of present illness. Medications Home Meds Active Scripts Ondansetron (Ondansetron Odt) 4 Mg Tab.rapdis, 4 MG PO Q6H Y for NAUSEA AND/OR VOMITING, #20 TAB Prov:REECE SWAIN PA-C 01/04/17 Hydrocodone/Acetaminophen ([place] 5-325 Tablet) 1 Each Tablet, 1 TAB PO Q6H Y for PAIN, #10 TAB Prov:REECE SWAIN PA-C 01/04/17 Hydrocodone/Acetaminophen ([place] 5-325 Tablet) 1 Each Tablet, 1 TAB PO Q6H Y for PAIN, #7 TAB Prov:ARNOLD LEYVA NP 12/26/16 Ondansetron Hcl* (Zofran*) 4 Mg Tablet, 4 MG PO Q6H for NAUSEA AND/OR VOMITING, #15 TAB Prov:ARNOLD LEYVA NP 12/26/16 Ondansetron Hcl* (Zofran*) 4 Mg Tab, 4 MG PO Q4H Y for NAUSEA AND OR VOMITING for 3 Days, TAB Prov:NIKKO WHITTEN 10/26/16 Hydrocodone/Acetaminophen ([place] 5-325 Tablet) 1 Each Tablet, 1 TAB PO Q6H Y for PAIN, #20 TAB Prov:NIKKO WHITTEN 10/26/16 Hydrocodone/Acetaminophen ([place] 5-325 Tablet) 1 Each Tablet, 1 EACH PO q6 hr for 7 Days, TAB Prov:YASMANI LUND MD 09/18/16 Sucralfate (Carafate) 1 Gm Tablet, 1 GM PO BID for 28 Days, TAB Prov:YASMANI LUND MD 09/18/16 Pantoprazole* (Pantoprazole*) 40 Mg Tablet.dr 40 MG PO DAILY@06 for 28 Days Prov:YASMANI LUND MD 09/18/16 Amlodipine Besylate* (Amlodipine Besylate*) 5 Mg Tablet, 5 MG PO DAILY for 14 Days, TAB Prov:YASMANI LUND MD 09/18/16 Albuterol Sulfate* (Ventolin HFA*) 18 Gm Hfa.aer.ad, 2 PUFF INH Q6HWA RESP THERAPY Y for SHORTNESS OF BREATH for 10 Days Prov:YASMANI LUND MD 09/18/16 Reported Medications [Ventolin] No Conflict Check 03/27/16 [Trazadone] No Conflict Check 03/27/16 [Topiramate] No Conflict Check 03/27/16 [Sumatriptan] No Conflict Check 03/27/16 [Sucralfate 1GM] No Conflict Check 03/27/16 [Paroxetine] No Conflict Check 03/27/16 [[place]] No Conflict Check 03/27/16 Allergies Allergies: Coded Allergies: No Known Allergy (Unverified , 01/04/17) PMhx/Soc History of Surgery: No Anesthesia Reaction: No Hx Neurological Disorder: Yes (SEIZURES) Hx Respiratory Disorders: No Hx Cardiac Disorders: No Hx Psychiatric Problems: Yes (DEPRESSION, ANXIETY, SI IDEATION WHEN YOUNGER) Hx Miscellaneous Medical Probl: No Hx Alcohol Use: Yes (SOCIALLY) Hx Substance Use: No Hx Tobacco Use: No Smoking Status: Never smoker FmHx Family History: No diabetes Physical Exam Vitals Vital Signs Date Time Temp Pulse Resp B/P Pulse Ox O2 Delivery O2 Flow Rate FiO2 01/04/17 15:15 98.5 90 20 132/99 97 Physical Exam INITIAL VITAL SIGNS: Reviewed by me GENERAL: Awake, alert and oriented x 4, well appearing, nontoxic, speaking in full sentences. No acute distress HEAD: Atraumatic NECK: Supple. No masses. Full range of motion. No meningismus. No midline tenderness. RESPIRATORY: Clear to auscultation bilaterally. Symmetric chest wall rise. No wheezing or rales. No accessory muscle use. CV: Regular rate and rhythm. No murmurs, rubs, or gallops. ABDOMEN: Soft, non-distended. Nontender. Negative Needles. Negative [place] point tenderness. No CVA tenderness bilaterally. No guarding. No rebound. : Deffered. EXTREMITIES: No clubbing or cyanosis. No edema. Moving all extremities normally. Result Diagram: 01/04/17 1800 01/04/17 1800 Results 24 hrs Laboratory Tests Test 01/04/17 18:00 White Blood Count 3.710^3/ul Red Blood Count 4.4610^6/ul Hemoglobin 12.7g/dl Hematocrit 43.0% Mean Corpuscular Volume 96.4fl Mean Corpuscular Hemoglobin 28.5pg Mean Corpuscular Hemoglobin Concent 29.5g/dl Red Cell Distribution Width 15.0% Platelet Count 54595^3/UL Mean Platelet Volume 10.2fl Neutrophils % 54.2% Lymphocytes % 32.4% Monocytes % 8.8% Eosinophils % 2.4% Basophils % 1.9% Nucleated Red Blood Cells % 0.0/100WBC Neutrophils # (Manual) 2.010^3/ul Lymphocytes # 1.210^3/ul Monocytes # 0.310^3/ul Eosinophils # 0.110^3/ul Basophils # 0.110^3/ul Nucleated Red Blood Cells # 0.010^3/ul Urine Color YELLOW Urine Clarity SLIGHTLY CLOUDY Urine pH 5.0 Urine Specific [place] 1.035 Urine Ketones NEGATIVEmg/dL Urine Nitrite NEGATIVEmg/dL Urine Bilirubin NEGATIVEmg/dL Urine Urobilinogen NEGATIVEmg/dL Urine Leukocyte Esterase NEGATIVELeu/ul Urine Microscopic RBC 1/HPF Urine Microscopic WBC 2/HPF Urine Squamous Epithelial Cells FEW/HPF Urine Mucus FEW/HPF Urine Hemoglobin NEGATIVEmg/dL Urine Glucose NEGATIVEmg/dL Urine Total Protein NEGATIVEmg/dl Sodium Level 142mmol/L Potassium Level 3.7mmol/L Chloride Level 109mmol/L Carbon Dioxide Level 18mmol/L Anion Gap 19 Blood Urea Nitrogen 14mg/dl Creatinine 0.66mg/dl Glucose Level 110mg/dl Calcium Level 9.6mg/dl Total Bilirubin 0.2mg/dl Direct Bilirubin 0.00mg/dl Indirect Bilirubin 0.2mg/dl Aspartate Amino Transf (AST/SGOT) 42IU/L Alanine Aminotransferase (ALT/SGPT) 26IU/L Alkaline Phosphatase 126IU/L Total Protein 8.3g/dl Albumin 4.6g/dl Globulin 3.70g/dl Albumin/Globulin Ratio 1.24 Lipase 58U/L Current Medications Medications (Trade) Dose Ordered Sig/Kevin Route PRN Reason Start Time Stop Time Status Last Admin Dose Admin Sodium Chloride (NS) 1,000 ml @ 1,000 mls/hr Q1H STAT IV 01/04/17 17:14 01/04/17 18:13 DC 01/04/17 17:24 Morphine Sulfate (morphine) 2 mg ONCE STAT IV 01/04/17 17:14 01/04/17 17:16 DC 01/04/17 17:25 Ondansetron HCl (Zofran Inj) 4 mg ONCE STAT IV 01/04/17 17:14 01/04/17 17:16 DC 01/04/17 17:24 Ketorolac Tromethamine (Toradol) 30 mg ONCE STAT IV 01/04/17 18:46 01/04/17 18:47 DC Procedures/MDM 36-year-old female presents with left-sided flank pain. Patients is alert, oriented, well appearing, and in no distress with normal vital signs. There is no fever, tachycardia, or tachypnea. The differential diagnosis includes but is not limited to appendicitis, cholelithiasis, cholecystitis, pancreatitis, hepatitis, gastritis, peptic ulcer disease, bowel obstruction, diverticulitis, renal disease including stones, torsion, AAA, pyelonephritis, and others. Patient examination is normal she has no tenderness throughout her abdomen including over her appendix or her gallbladder, and furthermore she has no CVA tenderness. Laboratory analysis shows no evidence of acute emergent abnormality. No evidence of significant leukocytosis suggesting systemic infection or severe anemia. No evidence of acute renal or liver failure, no evidence of severe alkalosis or acidosis she just had a CT scan of the abdomen and pelvis on the given her normal physical examination I do not believe she needs another CT scan at this time I did get a renal ultrasound which was negative. Patient's urine is also negative for infection however given she is symptomatic I will still treat her with Keflex and I also gave her Zofran, and norco. Patient counseled regarding my diagnostic impression and care plan. Prior to discharge all questions answered. Pt agrees with treatment plan and understands strict return precautions. Pt is instructed to follow up with primary care provider within 24-48 hours. Precautionary instructions provided including instructions to return to the ER if not improving or for any worsening or changing symptoms or concerns. Departure Diagnosis: Primary Impression: Abdominal pain Condition: Stable Patient Instructions: Abdominal Pain Additional Instructions: Call your primary care doctor TOMORROW for an appointment during the next 1-2 days.See the doctor sooner or return here if your condition worsens before your appointment time. REECE SWAIN PA-C Jan 04, 2017 18:53
[2017-01-04] MEDS ORDERED: CEPH-443 PO (18:54)
[2017-01-04 19:12] VITALS: BP 120/83; PULSE 66; RESP 18
== END 2017-01-04 19:12 | disposition home or self-care (01) ==
LOC: FTE 15:00
DX: R10.9 Unspecified abdominal pain (principal); R11.2 Nausea with vomiting, unspecified
CPT/HCPCS: 36415; 76775; 80053; 81001; 83690; 85025; 96374; 96375; J1885; J2270; J2405; J7030; Z7502; 81003

== ENCOUNTER 2017-02-25 17:27 | Emergency (ER) | payer OTHER ==
[~2017-02-25] VITALS: Ht 152.4 cm; Wt 50.5 kg
[~2017-02-25 17:27] MED LIST changes: +CEPH-443 PO; +ONDA4TAB14 PO
[2017-02-25 17:49] VITALS: Ht 152.4 cm; Wt 50.5 kg
[2017-02-25] MEDS ORDERED: morphine 4 MG/ML VIAL IV STA (19:42)
[2017-02-25] MEDS ORDERED: ONDANSETRON 4 MG INJ IV STA (19:42)
[2017-02-25] MEDS ORDERED: SOD CHLORIDE 0.9% 1,000 ML IV ONE (20:00)
[2017-02-25] MEDS ORDERED: KETOROLAC 30 MG INJ IV STA (20:48)
[2017-02-25] MEDS ORDERED: HYDR-906 PO (21:08)
[2017-02-25] MEDS ORDERED: NAPR-260 PO (21:08)
[2017-02-25] MEDS ORDERED: ONDA-43 PO (21:10)
--- NOTE | 2017-02-25 21:14 | ERD ---
ER Documentation Chief Complaint Chief Complaint VAZQUEZ AND NAUSEA X3 DAYS HPI This is a 36-year-old female that presents to the ER with multiple complaints. Patient has had a migraine headache over the last 4 days. Headache is located all over her head. Patient has had headaches like this in the past and has a past medical history of migraine headaches. Headache has been constant, patient tried Imitrex and Fioricet however it did not work. Patient denies any head trauma. She denies any loss of consciousness, vision loss, vision changes. This is not the worst headache of the patient's life. Patient also complaining of left lower quadrant abdominal pain, which started after she had 2 alcoholic drinks this weekend. Patient has had a past medical history of colic pancreatitis, and states that she feels this is similar. Had associated nausea and nonbilious nonbloody vomiting to her headaches. She denies any diarrhea. ROS 12 point review of systems was done, all negative except per HPI. Medications Home Meds Active Scripts Ondansetron Hcl* (Zofran*) 4 Mg Tab, 4 MG PO Q4H Y for NAUSEA AND OR VOMITING for 3 Days, TAB Prov:NIKKO WHITTEN 02/25/17 Hydrocodone/Acetaminophen ([place] 5-325 Tablet) 1 Each Tablet, 1 TAB PO Q6H Y for PAIN, #20 TAB Prov:NIKKO WHITTEN 02/25/17 Naproxen* (Naprosyn*) 500 Mg Tablet, 500 MG PO BID Y for PAIN AND/OR INFLAMMATION, #30 TAB Prov:NIKKO WHITTEN 02/25/17 Cephalexin* (Keflex*) 500 Mg Capsule, 500 MG PO BID for 5 Days, CAP Prov:REECE SWAIN PA-C 01/04/17 Ondansetron (Ondansetron Odt) 4 Mg Tab.rapdis, 4 MG PO Q6H Y for NAUSEA AND/OR VOMITING, #20 TAB Prov:REECE SWAIN PA-C 01/04/17 Hydrocodone/Acetaminophen ([place] 5-325 Tablet) 1 Each Tablet, 1 TAB PO Q6H Y for PAIN, #10 TAB Prov:REECE SWAIN PA-C 01/04/17 Hydrocodone/Acetaminophen ([place] 5-325 Tablet) 1 Each Tablet, 1 TAB PO Q6H Y for PAIN, #7 TAB Prov:ARNOLD LEYVA NP 12/26/16 Ondansetron Hcl* (Zofran*) 4 Mg Tablet, 4 MG PO Q6H for NAUSEA AND/OR VOMITING, #15 TAB Prov:ARNOLD LEYVA NP 12/26/16 Ondansetron Hcl* (Zofran*) 4 Mg Tab, 4 MG PO Q4H Y for NAUSEA AND OR VOMITING for 3 Days, TAB Prov:NIKKO WHITTEN C 10/26/16 Hydrocodone/Acetaminophen ([place] 5-325 Tablet) 1 Each Tablet, 1 TAB PO Q6H Y for PAIN, #20 TAB Prov:ALISSA WHITTENNA C 10/26/16 Hydrocodone/Acetaminophen ([place] 5-325 Tablet) 1 Each Tablet, 1 EACH PO q6 hr for 7 Days, TAB Prov:YASMANI LUND MD 09/18/16 Sucralfate (Carafate) 1 Gm Tablet, 1 GM PO BID for 28 Days, TAB Prov:YASMANI LUND MD 09/18/16 Pantoprazole* (Pantoprazole*) 40 Mg Tablet.dr, 40 MG PO DAILY@06 for 28 Days Prov:YASMANI LUND MD 09/18/16 Amlodipine Besylate* (Amlodipine Besylate*) 5 Mg Tablet, 5 MG PO DAILY for 14 Days, TAB Prov:YASMANI LUND MD 09/18/16 Albuterol Sulfate* (Ventolin HFA*) 18 Gm Hfa.aer.ad, 2 PUFF INH Q6HWA RESP THERAPY Y for SHORTNESS OF BREATH for 10 Days Prov:YASMANI LUND MD 09/18/16 Reported Medications [Ventolin] No Conflict Check 03/27/16 [Trazadone] No Conflict Check 03/27/16 [Topiramate] No Conflict Check 03/27/16 [Sumatriptan] No Conflict Check 03/27/16 [Sucralfate 1GM] No Conflict Check 03/27/16 [Paroxetine] No Conflict Check 03/27/16 [[place]] No Conflict Check 03/27/16 Allergies Allergies: Coded Allergies: No Known Allergy (Unverified , 02/25/17) PMhx/Soc Medical and Surgical Hx: pt denies Surgical Hx History of Surgery: No Anesthesia Reaction: No Hx Neurological Disorder: Yes (SEIZURES) Hx Respiratory Disorders: No Hx Cardiac Disorders: No Hx Psychiatric Problems: Yes (DEPRESSION, ANXIETY, SI IDEATION WHEN YOUNGER) Hx Miscellaneous Medical Probl: No Hx Alcohol Use: Yes (SOCIALLY) Hx Substance Use: No Hx Tobacco Use: No Smoking Status: Never smoker Physical Exam Vitals Vital Signs Date Time Temp Pulse Resp B/P Pulse Ox O2 Delivery O2 Flow Rate FiO2 02/25/17 17:49 98.0 111 20 139/85 100 Physical Exam GENERAL: The patient is well developed and appropriate for usual state of health , in no apparent distress. HEENT: Atraumatic. Conjunctivae are pink. Pupils equal, round, and reactive to light. Extraocular muscles are grossly intact. Bilateral tympanic membranes are clear with no evidence of erythema, bulging or perforation. No sinus tenderness. NECK: C-spine is soft and supple. There is no cervical lymphadenopathy. CHEST: Clear to auscultation bilaterally. There are no rales, wheezes or rhonchi. HEART: Regular rate and rhythm. No murmurs, clicks, rubs or gallops. EXTREMITIES: Equal pulses bilaterally. There is no peripheral clubbing, cyanosis or edema. No focal swelling or erythema. Full range of motion. Grossly neurovascularly intact. NEURO: Alert and oriented. Cranial nerves II through XII are intact. Motor strength in all 4 extremities with 5/5 strength. Sensation grossly intact. Normal speech and gait. Negative [place]. +2 DTRs. SKIN: There is no apparent rash or petechia. The skin is warm and dry. Result Diagram: 02/25/17201702/25/17 2018 Results 24 hrs Laboratory Tests Test 02/25/17 20:00 02/25/17 20:18 Urine Color YELLOW Urine Clarity CLEAR Urine pH 5.0 Urine Specific [place] 1.024 Urine Ketones NEGATIVEmg/dL Urine Nitrite NEGATIVEmg/dL Urine Bilirubin NEGATIVEmg/dL Urine Urobilinogen NEGATIVEmg/dL Urine Leukocyte Esterase NEGATIVELeu/ul Urine Hemoglobin NEGATIVEmg/dL Urine Glucose NEGATIVEmg/dL Urine Total Protein NEGATIVEmg/dl White Blood Count 4.610^3/ul Red Blood Count 3.9310^6/ul Hemoglobin 11.4g/dl Hematocrit 38.6% Mean Corpuscular Volume 98.2fl Mean Corpuscular Hemoglobin 29.0pg Mean Corpuscular Hemoglobin Concent 29.5g/dl Red Cell Distribution Width 18.3% Platelet Count 22944^3/UL Mean Platelet Volume 10.0fl Neutrophils % 65.5% Lymphocytes % 24.9% Monocytes % 7.6% Eosinophils % 0.2% Basophils % 1.1% Nucleated Red Blood Cells % 0.4/100WBC Neutrophils # 3.010^3/ul Lymphocytes # 1.110^3/ul Monocytes # 0.410^3/ul Eosinophils # 0.010^3/ul Basophils # 0.110^3/ul Nucleated Red Blood Cells # 0.010^3/ul Sodium Level 138mmol/L Potassium Level 4.4mmol/L Chloride Level 108mmol/L Carbon Dioxide Level 19mmol/L Anion Gap 15 Blood Urea Nitrogen 25mg/dl Creatinine 0.66mg/dl Glucose Level 94mg/dl Calcium Level 9.1mg/dl Total Bilirubin 0.3mg/dl Direct Bilirubin 0.00mg/dl Indirect Bilirubin 0.3mg/dl Aspartate Amino Transf (AST/SGOT) 54IU/L Alanine Aminotransferase (ALT/SGPT) 39IU/L Alkaline Phosphatase 97IU/L Total Protein 7.6g/dl Albumin 4.2g/dl Globulin 3.40g/dl Albumin/Globulin Ratio 1.23 Lipase 97U/L Current Medications Medications (Trade) Dose Ordered Sig/Kevin Route PRN Reason Start Time Stop Time Status Last Admin Dose Admin Sodium Chloride (NS) 1,000 ml @ 1,000 mls/hr Q1H ONCE IV 02/25/17 20:00 02/25/17 20:59 DC 02/25/17 20:08 Morphine Sulfate (morphine) 4 mg ONCE STAT IV 02/25/17 19:42 02/25/17 19:45 DC 02/25/17 20:08 Ondansetron HCl (Zofran Inj) 4 mg ONCE STAT IV 02/25/17 19:42 02/25/17 19:45 DC 02/25/17 20:07 Ketorolac Tromethamine (Toradol) 30 mg ONCE STAT IV 02/25/17 20:48 02/25/17 20:49 DC 02/25/17 20:52 Procedures/MDM Differential Diagnosis includes but is not limited to; tension headache, migraine headache, cluster headache, sinus headache, nonspecific febrile headache, trigeminal neurologia, subdural hematoma, subarachnoid bleeding, meningitis, encephalitis. Patient is neurologically intact with no focal neurological deficits. Has a long-standing history of migraines, this is likely a migraine headache. Patient was given morphine and Toradol in the ER and stated that her headache felt better. Considering patient's past medical history, and completely benign physical examination I do not believe that CT imaging is needed at this time. Patient actually does not have any history of trauma to the head. In regards to patient's left abdominal pain, her abdominal exam is benign and her lipase is normal. Suspicion for pancreatitis is low. Suspicion for acute abdomen is low. Patient is afebrile and extremely well- appearing. She stable for outpatient follow-up should be sent home with ibuprofen, [place] and Zofran. She is to follow-up with her primary care doctor within 1-2 days return to ER sooner if symptoms worsen. My medical decision making shared with the patient she understands and agrees with plan. Departure Diagnosis: Primary Impression: Headache Condition: Stable Patient Instructions: Self-Care for Headaches Referrals: RAMONA CASAS MD (PCP) Additional Instructions: Call your primary care doctor TOMORROW for an appointment during the next 1-2 days.See the doctor sooner or return here if your condition worsens before your appointment time. NIKKO WHITTEN Feb 25, 2017 21:14
== END 2017-02-25 21:16 | disposition home or self-care (01) ==
LOC: FTE 17:27
DX: R51 Headache (principal); R11.0 Nausea
CPT/HCPCS: 80053; 81003; 83690; 85025; 96374; 96375; J1885; J2270; J2405; J7030; Z7502

== ENCOUNTER 2017-03-15 17:11 | Emergency (ER) | payer OTHER ==
[~2017-03-15] VITALS: Ht 154.9 cm; Wt 52.0 kg
[~2017-03-15 17:11] MED LIST changes: +NAPR-260 PO
[2017-03-15 17:13] VITALS: Ht 154.9 cm; Wt 52.0 kg
[2017-03-15] MEDS ORDERED: ACETAMINOPHEN 500 MG TAB PO STA (17:57)
[2017-03-15] MEDS ORDERED: LIDOCAINE 1% (MDV) 20 ML INJ SC ONE (18:00)
[2017-03-15] MEDS ORDERED: ACET1TAB40 PO (18:46)
[2017-03-15] MEDS ORDERED: DOXY100T20 PO (18:46)
--- NOTE | 2017-03-15 18:50 | ERD ---
ER Documentation Chief Complaint Chief Complaint THREE ABSCESS TO VAGINAL AREA FOR A WEEK; VERY PAINFUL HPI This 37-year-old female presents with some painful lesions on her external vaginal area worsening the last week. Patient has a history of previous incision and drainage of abscesses in the area. She denies any fevers. Patient has a history of bulimia and pancreatitis. ROS All systems reviewed and are negative except as per history of present illness. Medications Home Meds Active Scripts Acetaminophen with Codeine (Acetaminophen-Cod #3 Tablet) 1 Each Tablet, 1 TAB PO Q6H Y for PAIN, #7 TAB Prov:ELLY RIVAS MD 03/15/17 Doxycycline Hyclate* (Doxycycline Hyclate*) 100 Mg Tablet.dr, 100 MG PO BID for 10 Days, TAB Prov:ELLY RIVAS MD 03/15/17 Ondansetron Hcl* (Zofran*) 4 Mg Tab, 4 MG PO Q4H Y for NAUSEA AND OR VOMITING for 3 Days, TAB Prov:NIKKO WHITTEN 02/25/17 Hydrocodone/Acetaminophen ([place] 5-325 Tablet) 1 Each Tablet, 1 TAB PO Q6H Y for PAIN, #20 TAB Prov:NIKKO WHITTEN 02/25/17 Naproxen* (Naprosyn*) 500 Mg Tablet, 500 MG PO BID Y for PAIN AND/OR INFLAMMATION, #30 TAB Prov:NIKKO WHITTEN 02/25/17 Cephalexin* (Keflex*) 500 Mg Capsule, 500 MG PO BID for 5 Days, CAP Prov:REECE SWAIN PA-C 01/04/17 Ondansetron (Ondansetron Odt) 4 Mg Tab.rapdis, 4 MG PO Q6H Y for NAUSEA AND/OR VOMITING, #20 TAB Prov:REECE SWAIN PA-C 01/04/17 Hydrocodone/Acetaminophen ([place] 5-325 Tablet) 1 Each Tablet, 1 TAB PO Q6H Y for PAIN, #10 TAB Prov:REECE SWAIN PA-C 01/04/17 Hydrocodone/Acetaminophen ([place] 5-325 Tablet) 1 Each Tablet, 1 TAB PO Q6H Y for PAIN, #7 TAB Prov:ARNOLD LEYVA NP 12/26/16 Ondansetron Hcl* (Zofran*) 4 Mg Tablet, 4 MG PO Q6H for NAUSEA AND/OR VOMITING, #15 TAB Prov:AUTUMNARNOLDJAMIE Frausto NP 12/26/16 Ondansetron Hcl* (Zofran*) 4 Mg Tab, 4 MG PO Q4H Y for NAUSEA AND OR VOMITING for 3 Days, TAB Prov:NIKKO WHITTEN 10/26/16 Hydrocodone/Acetaminophen ([place] 5-325 Tablet) 1 Each Tablet, 1 TAB PO Q6H Y for PAIN, #20 TAB Prov:NIKKO WHITTEN 10/26/16 Hydrocodone/Acetaminophen ([place] 5-325 Tablet) 1 Each Tablet, 1 EACH PO q6 hr for 7 Days, TAB Prov:YASMANI LUND MD 09/18/16 Sucralfate (Carafate) 1 Gm Tablet, 1 GM PO BID for 28 Days, TAB Prov:YASMANI LUND MD 09/18/16 Pantoprazole* (Pantoprazole*) 40 Mg Tablet.dr, 40 MG PO DAILY@06 for 28 Days Prov:YASMANI LUND MD 09/18/16 Amlodipine Besylate* (Amlodipine Besylate*) 5 Mg Tablet, 5 MG PO DAILY for 14 Days, TAB Prov:YASMANI LUND MD 09/18/16 Albuterol Sulfate* (Ventolin HFA*) 18 Gm Hfa.aer.ad, 2 PUFF INH Q6HWA RESP THERAPY Y for SHORTNESS OF BREATH for 10 Days Prov:YASMANI LUND MD 09/18/16 Reported Medications [Ventolin] No Conflict Check 03/27/16 [Trazadone] No Conflict Check 03/27/16 [Topiramate] No Conflict Check 03/27/16 [Sumatriptan] No Conflict Check 03/27/16 [Sucralfate 1GM] No Conflict Check 03/27/16 [Paroxetine] No Conflict Check 03/27/16 [[place]] No Conflict Check 03/27/16 Allergies Allergies: Coded Allergies: No Known Allergy (Unverified , 02/25/17) PMhx/Soc History of Surgery: No Anesthesia Reaction: No Hx Neurological Disorder: Yes (SEIZURES) Hx Respiratory Disorders: Yes (ASTHMA) Hx Cardiac Disorders: Yes (HTN) Hx Psychiatric Problems: Yes (DEPRESSION, ANXIETY, BULEMIA) Hx Miscellaneous Medical Probl: Yes (PANCREATITIS) Hx Alcohol Use: Yes (SOCIALLY) Hx Substance Use: No Hx Tobacco Use: No Smoking Status: Never smoker Physical Exam Vitals Vital Signs Date Time Temp Pulse Resp B/P Pulse Ox O2 Delivery O2 Flow Rate FiO2 03/15/17 17:13 97.2 118 18 118/90 98 Physical Exam Const: [] Alert, [id number]. Head: Atraumatic Eyes: Normal Conjunctiva ENT: Normal External Ears, Nose and Mouth. Neck: Full range of motion..~ No meningismus. Resp: Clear to auscultation bilaterally Cardio: Regular rate and rhythm, no murmurs Abd: Soft, non tender, non distended. Normal bowel sounds Skin: No petechiae or rashes. Several areas of inflamed papules erythematous on the external vaginal area or pubic area. On the right pubic area there is an area of fluctuance as well as the left upper pubic area. In the right inguinal fold area there is a deep subcutaneous nodule as well. There is no active discharge or significant induration or erythema. Back: No midline or flank tenderness Ext: No cyanosis, or edema Neur: Awake and alert Psych: Normal Mood and Affect Results 24 hrs Current Medications Medications (Trade) Dose Ordered Sig/Ekvin Route PRN Reason Start Time Stop Time Status Last Admin Dose Admin Acetaminophen (Tylenol Tab) 500 mg ONCE STAT PO 03/15/17 17:57 03/15/17 17:59 DC Lidocaine (Xylocaine 1% (Mdv) 20 ml) 20 ml ONCE ONCE SC 03/15/17 18:00 03/15/17 18:01 DC Acetaminophen/ Hydrocodone Bitart ([place] (5/325)) 1 tab ONCE ONCE PO 03/15/17 19:00 03/15/17 19:01 Procedures/MDM Patient presents with what appears to be small abscesses or folliculitis on the external vaginal or pubic area. Seizure note-pelvic area was prepped with Betadine. Approximately 1 cc of lidocaine was used to anesthetize each palpable tender lesion. #11 scalpel was used to incise lesions. A small amount of pus and sebaceous material was expressed from each lesion. The lesions were small's were not packed. Wounds were dressed and patient tolerated procedure well. Patient was given [place] 5 mg for pain. Patient presents with what appears to be acute on chronic folliculitis of the pubic area, possibly hidradenitis or small sebaceous cyst. She will discharged home the prescription of doxycycline, instructions for wound care and primary care follow-up and return precautions. The patient was stable with no new complaints during the ER course. Clinically, there is no current evidence to suggest meningitis, sepsis, acute abdomen, pneumonia, acute coronary syndrome, pulmonary embolism, or any other emergent condition appearing to require further evaluation or hospitalization. The patient should certainly return for any new or worsening symptoms per the aftercare instructions. They should otherwise follow-up with her primary care doctor for reevaluation this week. Departure Diagnosis: Primary Impression: Abscess Condition: Stable Patient Instructions: Abscess, Incision And Drainage, Folliculitis Additional Instructions: Recheck for worsening redness, fevers, new symptoms. ELLY RIVAS MD Mar 15, 2017 18:50
--- NOTE | 2017-03-15 18:50 | ERD ---
ER Documentation Chief Complaint Chief Complaint THREE ABSCESS TO VAGINAL AREA FOR A WEEK; VERY PAINFUL HPI This 37-year-old female presents with some painful lesions on her external vaginal area worsening the last week. Patient has a history of previous incision and drainage of abscesses in the area. She denies any fevers. Patient has a history of bulimia and pancreatitis. ROS All systems reviewed and are negative except as per history of present illness. Medications Home Meds Active Scripts Acetaminophen with Codeine (Acetaminophen-Cod #3 Tablet) 1 Each Tablet, 1 TAB PO Q6H Y for PAIN, #7 TAB Prov:ELLY RIVAS MD 03/15/17 Doxycycline Hyclate* (Doxycycline Hyclate*) 100 Mg Tablet.dr, 100 MG PO BID for 10 Days, TAB Prov:ELLY RIVAS MD 03/15/17 Ondansetron Hcl* (Zofran*) 4 Mg Tab, 4 MG PO Q4H Y for NAUSEA AND OR VOMITING for 3 Days, TAB Prov:NIKKO WHITTEN 02/25/17 Hydrocodone/Acetaminophen ([place] 5-325 Tablet) 1 Each Tablet, 1 TAB PO Q6H Y for PAIN, #20 TAB Prov:NIKKO WHITTEN 02/25/17 Naproxen* (Naprosyn*) 500 Mg Tablet, 500 MG PO BID Y for PAIN AND/OR INFLAMMATION, #30 TAB Prov:NIKKO WHITTEN 02/25/17 Cephalexin* (Keflex*) 500 Mg Capsule, 500 MG PO BID for 5 Days, CAP Prov:REECE SWAIN PA-C 01/04/17 Ondansetron (Ondansetron Odt) 4 Mg Tab.rapdis, 4 MG PO Q6H Y for NAUSEA AND/OR VOMITING, #20 TAB Prov:REECE SWAIN PA-C 01/04/17 Hydrocodone/Acetaminophen ([place] 5-325 Tablet) 1 Each Tablet, 1 TAB PO Q6H Y for PAIN, #10 TAB Prov:REECE SWAIN PA-C 01/04/17 Hydrocodone/Acetaminophen ([place] 5-325 Tablet) 1 Each Tablet, 1 TAB PO Q6H Y for PAIN, #7 TAB Prov:ARNOLD LEYVA NP 12/26/16 Ondansetron Hcl* (Zofran*) 4 Mg Tablet, 4 MG PO Q6H for NAUSEA AND/OR VOMITING, #15 TAB Prov:AUTUMNARNOLDJAMIE Frausto NP 12/26/16 Ondansetron Hcl* (Zofran*) 4 Mg Tab, 4 MG PO Q4H Y for NAUSEA AND OR VOMITING for 3 Days, TAB Prov:NIKKO WHITTEN 10/26/16 Hydrocodone/Acetaminophen ([place] 5-325 Tablet) 1 Each Tablet, 1 TAB PO Q6H Y for PAIN, #20 TAB Prov:NIKKO WHITTEN 10/26/16 Hydrocodone/Acetaminophen ([place] 5-325 Tablet) 1 Each Tablet, 1 EACH PO q6 hr for 7 Days, TAB Prov:YASMANI LUND MD 09/18/16 Sucralfate (Carafate) 1 Gm Tablet, 1 GM PO BID for 28 Days, TAB Prov:YASMANI LUND MD 09/18/16 Pantoprazole* (Pantoprazole*) 40 Mg Tablet.dr, 40 MG PO DAILY@06 for 28 Days Prov:YASMANI LUND MD 09/18/16 Amlodipine Besylate* (Amlodipine Besylate*) 5 Mg Tablet, 5 MG PO DAILY for 14 Days, TAB Prov:YASMANI LUND MD 09/18/16 Albuterol Sulfate* (Ventolin HFA*) 18 Gm Hfa.aer.ad, 2 PUFF INH Q6HWA RESP THERAPY Y for SHORTNESS OF BREATH for 10 Days Prov:YASMANI LUND MD 09/18/16 Reported Medications [Ventolin] No Conflict Check 03/27/16 [Trazadone] No Conflict Check 03/27/16 [Topiramate] No Conflict Check 03/27/16 [Sumatriptan] No Conflict Check 03/27/16 [Sucralfate 1GM] No Conflict Check 03/27/16 [Paroxetine] No Conflict Check 03/27/16 [[place]] No Conflict Check 03/27/16 Allergies Allergies: Coded Allergies: No Known Allergy (Unverified , 02/25/17) PMhx/Soc History of Surgery: No Anesthesia Reaction: No Hx Neurological Disorder: Yes (SEIZURES) Hx Respiratory Disorders: Yes (ASTHMA) Hx Cardiac Disorders: Yes (HTN) Hx Psychiatric Problems: Yes (DEPRESSION, ANXIETY, BULEMIA) Hx Miscellaneous Medical Probl: Yes (PANCREATITIS) Hx Alcohol Use: Yes (SOCIALLY) Hx Substance Use: No Hx Tobacco Use: No Smoking Status: Never smoker Physical Exam Vitals Vital Signs Date Time Temp Pulse Resp B/P Pulse Ox O2 Delivery O2 Flow Rate FiO2 03/15/17 17:13 97.2 118 18 118/90 98 Physical Exam Const: [] Alert, [id number]. Head: Atraumatic Eyes: Normal Conjunctiva ENT: Normal External Ears, Nose and Mouth. Neck: Full range of motion..~ No meningismus. Resp: Clear to auscultation bilaterally Cardio: Regular rate and rhythm, no murmurs Abd: Soft, non tender, non distended. Normal bowel sounds Skin: No petechiae or rashes. Several areas of inflamed papules erythematous on the external vaginal area or pubic area. On the right pubic area there is an area of fluctuance as well as the left upper pubic area. In the right inguinal fold area there is a deep subcutaneous nodule as well. There is no active discharge or significant induration or erythema. Back: No midline or flank tenderness Ext: No cyanosis, or edema Neur: Awake and alert Psych: Normal Mood and Affect Results 24 hrs Current Medications Medications (Trade) Dose Ordered Sig/Kevin Route PRN Reason Start Time Stop Time Status Last Admin Dose Admin Acetaminophen (Tylenol Tab) 500 mg ONCE STAT PO 03/15/17 17:57 03/15/17 17:59 DC Lidocaine (Xylocaine 1% (Mdv) 20 ml) 20 ml ONCE ONCE SC 03/15/17 18:00 03/15/17 18:01 DC Acetaminophen/ Hydrocodone Bitart ([place] (5/325)) 1 tab ONCE ONCE PO 03/15/17 19:00 03/15/17 19:01 Procedures/MDM Patient presents with what appears to be small abscesses or folliculitis on the external vaginal or pubic area. Seizure note-pelvic area was prepped with Betadine. Approximately 1 cc of lidocaine was used to anesthetize each palpable tender lesion. #11 scalpel was used to incise lesions. A small amount of pus and sebaceous material was expressed from each lesion. The lesions were small's were not packed. Wounds were dressed and patient tolerated procedure well. Patient was given [place] 5 mg for pain. Patient presents with what appears to be acute on chronic folliculitis of the pubic area, possibly hidradenitis or small sebaceous cyst. She will discharged home the prescription of doxycycline, instructions for wound care and primary care follow-up and return precautions. The patient was stable with no new complaints during the ER course. Clinically, there is no current evidence to suggest meningitis, sepsis, acute abdomen, pneumonia, acute coronary syndrome, pulmonary embolism, or any other emergent condition appearing to require further evaluation or hospitalization. The patient should certainly return for any new or worsening symptoms per the aftercare instructions. They should otherwise follow-up with her primary care doctor for reevaluation this week. Departure Diagnosis: Primary Impression: Abscess Condition: Stable Patient Instructions: Abscess, Incision And Drainage, Folliculitis Additional Instructions: Recheck for worsening redness, fevers, new symptoms. ELLY RIVAS MD Mar 15, 2017 18:50
--- NOTE | 2017-03-15 18:50 | ERD ---
ER Documentation Chief Complaint Chief Complaint THREE ABSCESS TO VAGINAL AREA FOR A WEEK; VERY PAINFUL HPI This 37-year-old female presents with some painful lesions on her external vaginal area worsening the last week. Patient has a history of previous incision and drainage of abscesses in the area. She denies any fevers. Patient has a history of bulimia and pancreatitis. ROS All systems reviewed and are negative except as per history of present illness. Medications Home Meds Active Scripts Acetaminophen with Codeine (Acetaminophen-Cod #3 Tablet) 1 Each Tablet, 1 TAB PO Q6H Y for PAIN, #7 TAB Prov:ELLY RIVAS MD 03/15/17 Doxycycline Hyclate* (Doxycycline Hyclate*) 100 Mg Tablet.dr, 100 MG PO BID for 10 Days, TAB Prov:ELLY RIVAS MD 03/15/17 Ondansetron Hcl* (Zofran*) 4 Mg Tab, 4 MG PO Q4H Y for NAUSEA AND OR VOMITING for 3 Days, TAB Prov:NIKKO WHITTEN 02/25/17 Hydrocodone/Acetaminophen ([place] 5-325 Tablet) 1 Each Tablet, 1 TAB PO Q6H Y for PAIN, #20 TAB Prov:NIKKO WHITTEN 02/25/17 Naproxen* (Naprosyn*) 500 Mg Tablet, 500 MG PO BID Y for PAIN AND/OR INFLAMMATION, #30 TAB Prov:NIKKO WHITETN 02/25/17 Cephalexin* (Keflex*) 500 Mg Capsule, 500 MG PO BID for 5 Days, CAP Prov:REECE SWAIN PA-C 01/04/17 Ondansetron (Ondansetron Odt) 4 Mg Tab.rapdis, 4 MG PO Q6H Y for NAUSEA AND/OR VOMITING, #20 TAB Prov:REECE SWAIN PA-C 01/04/17 Hydrocodone/Acetaminophen ([place] 5-325 Tablet) 1 Each Tablet, 1 TAB PO Q6H Y for PAIN, #10 TAB Prov:REECE SWAIN PA-C 01/04/17 Hydrocodone/Acetaminophen ([place] 5-325 Tablet) 1 Each Tablet, 1 TAB PO Q6H Y for PAIN, #7 TAB Prov:ARNOLD LEYVA NP 12/26/16 Ondansetron Hcl* (Zofran*) 4 Mg Tablet, 4 MG PO Q6H for NAUSEA AND/OR VOMITING, #15 TAB Prov:AUTUMNARNOLDJAMIE Frausto NP 12/26/16 Ondansetron Hcl* (Zofran*) 4 Mg Tab, 4 MG PO Q4H Y for NAUSEA AND OR VOMITING for 3 Days, TAB Prov:NIKKO WHITTEN 10/26/16 Hydrocodone/Acetaminophen ([place] 5-325 Tablet) 1 Each Tablet, 1 TAB PO Q6H Y for PAIN, #20 TAB Prov:NIKKO WHITTEN 10/26/16 Hydrocodone/Acetaminophen ([place] 5-325 Tablet) 1 Each Tablet, 1 EACH PO q6 hr for 7 Days, TAB Prov:YASMANI LUND MD 09/18/16 Sucralfate (Carafate) 1 Gm Tablet, 1 GM PO BID for 28 Days, TAB Prov:YASMANI LUND MD 09/18/16 Pantoprazole* (Pantoprazole*) 40 Mg Tablet.dr, 40 MG PO DAILY@06 for 28 Days Prov:YASMANI LUND MD 09/18/16 Amlodipine Besylate* (Amlodipine Besylate*) 5 Mg Tablet, 5 MG PO DAILY for 14 Days, TAB Prov:YASMANI LUND MD 09/18/16 Albuterol Sulfate* (Ventolin HFA*) 18 Gm Hfa.aer.ad, 2 PUFF INH Q6HWA RESP THERAPY Y for SHORTNESS OF BREATH for 10 Days Prov:YASMANI LUND MD 09/18/16 Reported Medications [Ventolin] No Conflict Check 03/27/16 [Trazadone] No Conflict Check 03/27/16 [Topiramate] No Conflict Check 03/27/16 [Sumatriptan] No Conflict Check 03/27/16 [Sucralfate 1GM] No Conflict Check 03/27/16 [Paroxetine] No Conflict Check 03/27/16 [[place]] No Conflict Check 03/27/16 Allergies Allergies: Coded Allergies: No Known Allergy (Unverified , 02/25/17) PMhx/Soc History of Surgery: No Anesthesia Reaction: No Hx Neurological Disorder: Yes (SEIZURES) Hx Respiratory Disorders: Yes (ASTHMA) Hx Cardiac Disorders: Yes (HTN) Hx Psychiatric Problems: Yes (DEPRESSION, ANXIETY, BULEMIA) Hx Miscellaneous Medical Probl: Yes (PANCREATITIS) Hx Alcohol Use: Yes (SOCIALLY) Hx Substance Use: No Hx Tobacco Use: No Smoking Status: Never smoker Physical Exam Vitals Vital Signs Date Time Temp Pulse Resp B/P Pulse Ox O2 Delivery O2 Flow Rate FiO2 03/15/17 17:13 97.2 118 18 118/90 98 Physical Exam Const: [] Alert, [id number]. Head: Atraumatic Eyes: Normal Conjunctiva ENT: Normal External Ears, Nose and Mouth. Neck: Full range of motion..~ No meningismus. Resp: Clear to auscultation bilaterally Cardio: Regular rate and rhythm, no murmurs Abd: Soft, non tender, non distended. Normal bowel sounds Skin: No petechiae or rashes. Several areas of inflamed papules erythematous on the external vaginal area or pubic area. On the right pubic area there is an area of fluctuance as well as the left upper pubic area. In the right inguinal fold area there is a deep subcutaneous nodule as well. There is no active discharge or significant induration or erythema. Back: No midline or flank tenderness Ext: No cyanosis, or edema Neur: Awake and alert Psych: Normal Mood and Affect Results 24 hrs Current Medications Medications (Trade) Dose Ordered Sig/Kevin Route PRN Reason Start Time Stop Time Status Last Admin Dose Admin Acetaminophen (Tylenol Tab) 500 mg ONCE STAT PO 03/15/17 17:57 03/15/17 17:59 DC Lidocaine (Xylocaine 1% (Mdv) 20 ml) 20 ml ONCE ONCE SC 03/15/17 18:00 03/15/17 18:01 DC Acetaminophen/ Hydrocodone Bitart ([place] (5/325)) 1 tab ONCE ONCE PO 03/15/17 19:00 03/15/17 19:01 Procedures/MDM Patient presents with what appears to be small abscesses or folliculitis on the external vaginal or pubic area. Seizure note-pelvic area was prepped with Betadine. Approximately 1 cc of lidocaine was used to anesthetize each palpable tender lesion. #11 scalpel was used to incise lesions. A small amount of pus and sebaceous material was expressed from each lesion. The lesions were small's were not packed. Wounds were dressed and patient tolerated procedure well. Patient was given [place] 5 mg for pain. Patient presents with what appears to be acute on chronic folliculitis of the pubic area, possibly hidradenitis or small sebaceous cyst. She will discharged home the prescription of doxycycline, instructions for wound care and primary care follow-up and return precautions. The patient was stable with no new complaints during the ER course. Clinically, there is no current evidence to suggest meningitis, sepsis, acute abdomen, pneumonia, acute coronary syndrome, pulmonary embolism, or any other emergent condition appearing to require further evaluation or hospitalization. The patient should certainly return for any new or worsening symptoms per the aftercare instructions. They should otherwise follow-up with her primary care doctor for reevaluation this week. Departure Diagnosis: Primary Impression: Abscess Condition: Stable Patient Instructions: Abscess, Incision And Drainage, Folliculitis Additional Instructions: Recheck for worsening redness, fevers, new symptoms. ELLY RIVAS MD Mar 15, 2017 18:50
[2017-03-15] MEDS ORDERED: HYDROCODONE/APAP (5/325) TAB PO ONE (19:00)
== END 2017-03-15 19:26 | disposition home or self-care (01) ==
LOC: FTE 17:11
DX: N76.4 Abscess of vulva (principal); J45.909 Unspecified asthma, uncomplicated; I10 Essential (primary) hypertension
CPT/HCPCS: 56405; Z7502; Z7610

== ENCOUNTER 2017-03-27 17:35 | Inpatient (IN) | payer OTHER ==
[~2017-03-27] VITALS: Ht 154.9 cm; Wt 51.5 kg
[~2017-03-27 17:35] MED LIST changes: +ACET1TAB40 PO; +DOXY100T20 PO
[2017-03-27] MEDS ORDERED: SOD CHLORIDE 0.9% 1,000 ML IV STA (19:17)
[2017-03-27] MEDS ORDERED: ONDANSETRON 4 MG INJ IV STA (19:17)
[2017-03-27] MEDS ORDERED: morphine 4 MG/ML VIAL IV STA (19:17)
--- NOTE | 2017-03-27 19:32 | ERD ---
ER Documentation Chief Complaint Chief Complaint ABDOMINAL PAIN X4 DAYS HPI 37-year-old female presents to emergency department for complaints of left lower quadrant abdominal pain radiating to the left flank area that started 4 days ago. Patient describes the pain as sharp pain, 6/10 scale, as was upon movement accompanied with vomiting. Patient denies any hematuria or dysuria. Patient denies any blood in his stool or black stool. Patient denies any fever or chills. Patient also is lifting heavy weight, while moving and at work, she has had this 3 days ago, may have also caused the pain. ROS All systems reviewed and are negative except as per history of present illness. Medications Home Meds Active Scripts Acetaminophen with Codeine (Acetaminophen-Cod #3 Tablet) 1 Each Tablet, 1 TAB PO Q6H Y for PAIN, #7 TAB Prov:ELLY RIVAS MD 03/15/17 Doxycycline Hyclate* (Doxycycline Hyclate*) 100 Mg Tablet.dr, 100 MG PO BID for 10 Days, TAB Prov:ELLY RIVAS MD 03/15/17 Ondansetron Hcl* (Zofran*) 4 Mg Tab, 4 MG PO Q4H Y for NAUSEA AND OR VOMITING for 3 Days, TAB Prov:NIKKO WHITTEN 02/25/17 Hydrocodone/Acetaminophen ([place] 5-325 Tablet) 1 Each Tablet, 1 TAB PO Q6H Y for PAIN, #20 TAB Prov:NIKKO WHITTEN 02/25/17 Naproxen* (Naprosyn*) 500 Mg Tablet, 500 MG PO BID Y for PAIN AND/OR INFLAMMATION, #30 TAB Prov:NIKKO WHITTEN 02/25/17 Cephalexin* (Keflex*) 500 Mg Capsule, 500 MG PO BID for 5 Days, CAP Prov:REECE SWAIN PA-C 01/04/17 Ondansetron (Ondansetron Odt) 4 Mg Tab.rapdis, 4 MG PO Q6H Y for NAUSEA AND/OR VOMITING, #20 TAB Prov:REECE SWAIN PA-C 01/04/17 Hydrocodone/Acetaminophen ([place] 5-325 Tablet) 1 Each Tablet, 1 TAB PO Q6H Y for PAIN, #10 TAB Prov:REECE SWAIN PA-C 01/04/17 Hydrocodone/Acetaminophen ([place] 5-325 Tablet) 1 Each Tablet, 1 TAB PO Q6H Y for PAIN, #7 TAB Prov:AUTUMNDAVIDARNOLDJAMIE Frausto NP 12/26/16 Ondansetron Hcl* (Zofran*) 4 Mg Tablet, 4 MG PO Q6H for NAUSEA AND/OR VOMITING, #15 TAB Prov:ARNOLD LEYVA Jett LI 12/26/16 Ondansetron Hcl* (Zofran*) 4 Mg Tab, 4 MG PO Q4H Y for NAUSEA AND OR VOMITING for 3 Days, TAB Prov:NIKKO WHITTEN 10/26/16 Hydrocodone/Acetaminophen ([place] 5-325 Tablet) 1 Each Tablet, 1 TAB PO Q6H Y for PAIN, #20 TAB Prov:NIKKO WHTITEN C 10/26/16 Hydrocodone/Acetaminophen ([place] 5-325 Tablet) 1 Each Tablet, 1 EACH PO q6 hr for 7 Days, TAB Prov:YASMANI LUND MD 09/18/16 Sucralfate (Carafate) 1 Gm Tablet, 1 GM PO BID for 28 Days, TAB Prov:YASMANI LUND MD 09/18/16 Pantoprazole* (Pantoprazole*) 40 Mg Tablet.dr, 40 MG PO DAILY@06 for 28 Days Prov:YASMANI LUND MD 09/18/16 Amlodipine Besylate* (Amlodipine Besylate*) 5 Mg Tablet, 5 MG PO DAILY for 14 Days, TAB Prov:YASMANI LUND MD 09/18/16 Albuterol Sulfate* (Ventolin HFA*) 18 Gm Hfa.aer.ad, 2 PUFF INH Q6HWA RESP THERAPY Y for SHORTNESS OF BREATH for 10 Days Prov:YASMANI LUND MD 09/18/16 Reported Medications [Ventolin] No Conflict Check 03/27/16 [Trazadone] No Conflict Check 03/27/16 [Topiramate] No Conflict Check 03/27/16 [Sumatriptan] No Conflict Check 03/27/16 [Sucralfate 1GM] No Conflict Check 03/27/16 [Paroxetine] No Conflict Check 03/27/16 [Slaughter] No Conflict Check 03/27/16 Allergies Allergies: Coded Allergies: No Known Allergy (Unverified , 02/25/17) PMhx/Soc History of Surgery: No Anesthesia Reaction: No Hx Neurological Disorder: Yes (SEIZURES) Hx Respiratory Disorders: Yes (ASTHMA) Hx Cardiac Disorders: Yes (HTN) Hx Psychiatric Problems: Yes (DEPRESSION, ANXIETY, BULEMIA) Hx Miscellaneous Medical Probl: Yes (PANCREATITIS) Hx Alcohol Use: Yes (SOCIALLY) Hx Substance Use: No Hx Tobacco Use: No FmHx Family History: No coronary disease, No diabetes, No other Physical Exam Vitals Vital Signs Date Time Temp Pulse Resp B/P Pulse Ox O2 Delivery O2 Flow Rate FiO2 03/27/17 17:41 97.9 95 18 119/87 100 Physical Exam GENERAL: The patient is well developed and appropriate for usual state of health, in no apparent distress. CHEST: Clear to auscultation bilaterally. There are no rales, wheezes or rhonchi. HEART: Regular rate and rhythm. No murmurs, clicks, rubs or gallops. No S3 or S4. ABDOMEN: Soft, nontender and nondistended. Good bowel sounds. No rebound or guarding. No gross peritonitis. No gross organomegaly or masses. No Valadez sign or McBurney point tenderness. BACK: No midline or flank tenderness. EXTREMITIES: Equal pulses bilaterally. There is no peripheral clubbing, cyanosis or edema. No focal swelling or erythema. Full range of motion. Grossly neurovascularly intact. NEURO: Alert and oriented. Cranial nerves 2-12 intact. Motor strength in all 4 extremities with 5/5 strength. Sensation grossly intact. Normal speech and gait. SKIN: There is no apparent rash or petechia. The skin is warm and dry. HEMATOLOGIC AND LYMPHATIC: There is no evidence of excessive bruising or lymphedema. No gross cervical, axillary, or inguinal lymphadenopathy. Result Diagram: 03/27/17193903/27/171939 Results 24 hrs Laboratory Tests Test 03/27/17 19:40 White Blood Count 6.110^3/ul Red Blood Count 3.6610^6/ul Hemoglobin 10.7g/dl Hematocrit 35.6% Mean Corpuscular Volume 97.3fl Mean Corpuscular Hemoglobin 29.2pg Mean Corpuscular Hemoglobin Concent 30.1g/dl Red Cell Distribution Width 18.4% Platelet Count 70093^3/UL Mean Platelet Volume 10.8fl Neutrophils % 67.2% Lymphocytes % 20.2% Monocytes % 9.4% Eosinophils % 1.5% Basophils % 1.2% Nucleated Red Blood Cells % 0.0/100WBC Neutrophils # 4.110^3/ul Lymphocytes # 1.210^3/ul Monocytes # 0.610^3/ul Eosinophils # 0.110^3/ul Basophils # 0.110^3/ul Nucleated Red Blood Cells # 0.010^3/ul Urine Color YELLOW Urine Clarity SLIGHTLY CLOUDY Urine pH 6.0 Urine Specific [place] 1.025 Urine Ketones NEGATIVEmg/dL Urine Nitrite NEGATIVEmg/dL Urine Bilirubin NEGATIVEmg/dL Urine Urobilinogen 1+mg/dL Urine Leukocyte Esterase NEGATIVELeu/ul Urine Microscopic RBC 0/HPF Urine Microscopic WBC 3/HPF Urine Hemoglobin NEGATIVEmg/dL Urine Glucose NEGATIVEmg/dL Urine Total Protein NEGATIVEmg/dl Sodium Level 140mmol/L Potassium Level 3.8mmol/L Chloride Level 108mmol/L Carbon Dioxide Level 22mmol/L Anion Gap 14 Blood Urea Nitrogen 15mg/dl Creatinine 0.68mg/dl Glucose Level 129mg/dl Calcium Level 8.9mg/dl Total Bilirubin 0.1mg/dl Direct Bilirubin 0.00mg/dl Indirect Bilirubin 0.1mg/dl Aspartate Amino Transf (AST/SGOT) 19IU/L Alanine Aminotransferase (ALT/SGPT) 29IU/L Alkaline Phosphatase 101IU/L Total Protein 6.9g/dl Albumin 3.9g/dl Globulin 3.00g/dl Albumin/Globulin Ratio 1.30 Lipase 129U/L Current Medications Medications (Trade) Dose Ordered Sig/Kevin Route PRN Reason Start Time Stop Time Status Last Admin Dose Admin Sodium Chloride (NS) 1,000 ml @ 1,000 mls/hr Q1H STAT IV 03/27/17 19:17 03/27/17 20:16 DC 03/27/17 19:54 Morphine Sulfate (morphine) 4 mg ONCE STAT IV 03/27/17 19:17 03/27/17 19:19 DC 03/27/17 19:53 Ondansetron HCl (Zofran Inj) 4 mg ONCE STAT IV 03/27/17 19:17 03/27/17 19:19 DC 03/27/17 19:53 Patient was given medication for pain here in emergency department, after treatment, patient verbalized feeling much better. Patient's pain is improved. Patient was given Zofran here in the emergency department. After treatment, patient was able to tolerate po fluids here in the emergency department without any vomiting. There is no signs and symptoms of dehydration. Normal saline IV bolus was given here in emergency department for rehydration, patient tolerated IV fluids. PROCEDURE: CT abdomen and pelvis without intravenous contrast. CLINICAL INDICATION: Pain. TECHNIQUE: CT of the abdomen/pelvis was performed utilizing axial images with reconstructions in sagittal and coronal planes. The administered radiation dose is CTDI 4.8 mGy, DLP 272 mGy-cm. One or more of the following dose reduction techniques were used: automated exposure control, adjustment of the mA and/or kV according to patient size and/or use of iterative reconstruction technique. DICOM images are available. COMPARISON: 12/26/2016 FINDINGS: Visualized Chest: The visualized lung bases are clear. Abdomen: The liver, spleen, gallbladder,and adrenal glands are unremarkable. There are mild peripancreatic fat infiltrative changes. There is a 4.5 cm cystic lesion within the pancreatic tail, increased in size compared to the prior exam. A small amount of free fluid surrounds the spleen. The kidneys are without hydronephrosis. There are punctate bilateral nonobstructive intrarenal calculi. There is no evidence of bowel obstruction. The appendix is normal. No intra- abdominal free air is seen. Some increased formed stool is noted throughout the colon. There is no evidence of intra-abdominal adenopathy or free fluid. Pelvis: There is no evidence of pelvic adenopathy. The uterus and ovaries are without enlargement. The urinary bladder is unremarkable. There is no pelvic free fluid. Osseous structures: Unremarkable. IMPRESSION: Acute pancreatitis with a presumed pseudocyst in the pancreatic tail there is increase in size compared to the prior exam. Bilateral nephrolithiasis. Increased formed stool throughout the colon suggestive of constipation. RPTAT: HIKT .Bladimir Parr MD, MD Date Time Electronically viewed and signed by .Bladimir Parr MD, MD on 03/27/2017 20:48 .T/ CC: KALPANA ROSE NP Procedures/MDM Medical Decision Making: Acute pancreatitis, also has ptosis noted in the pancreas, further evaluation necessary, also has intractable abdominal pain. I discussed this case with my attending physician, Dr. Peña, patient will be admitted to the hospital for further evaluation and management. Stable at this time Disclaimer: Inadvertent spelling and grammatical errors are likely due to EHR/ dictation software use and do not reflect on the overall quality of patient care. Also, please note that the electronic time recorded on this note does not necessarily reflect the actual time of the patient encounter. Departure Diagnosis: Primary Impression: Pancreatitis Chronicity: acute Pancreatitis type: unspecified pancreatitis type Acute pancreatitis complication: unspecified Qualified Code: K85.90 - Acute pancreatitis, unspecified complication status, unspecified pancreatitis type Condition: Fair KALPANA ROSE NP Mar 27, 2017 19:32 KALPANA ROSE NP Mar 27, 2017 19:32
[2017-03-27 19:59] LABS: BASOPHIL # 0.1 10^3/ul (0.0-0.1); BASOPHILS % 1.2 % (0.0-2.0); EOSINOPHILS # 0.1 10^3/ul (0.0-0.5); EOSINOPHILS % 1.5 % (0.0-7.0); HEMATOCRIT 35.6 % (37.0-47.0); HEMOGLOBIN 10.7 g/dl (12.0-16.0); LYMPHOCYTES # 1.2 10^3/ul (0.8-2.9); LYMPHOCYTES % 20.2 % (15.0-51.0); MEAN CORPUSCULAR HEMOGLOBIN 29.2 pg (29.0-33.0); MEAN CORPUSCULAR HGB CONC 30.1 g/dl (32.0-37.0); MEAN CORPUSCULAR VOLUME 97.3 fl (82.0-101.0); MEAN PLATELET VOLUME 10.8 fl (7.4-10.4); MONOCYTE # 0.6 10^3/ul (0.3-0.9); MONOCYTES % 9.4 % (0.0-11.0); NEUTROPHIL # 4.1 10^3/ul (1.6-7.5); NEUTROPHILS % 67.2 % (39.0-77.0); PLATELET COUNT 150 10^3/UL (140-415); RED BLOOD COUNT 3.66 10^6/ul (4.20-5.40); RED CELL DISTRIBUTION WIDTH 18.4 % (11.5-14.5); WHITE BLOOD COUNT 6.1 10^3/ul (4.8-10.8)
[2017-03-27 20:01] LABS: ADD UMIC NO; UR ASCORBIC ACID NEGATIVE (NEGATIVE); UR BILIRUBIN (Dip) NEGATIVE (NEGATIVE); UR BLOOD (Dip) NEGATIVE (NEGATIVE); UR CLARITY SLIGHTLY CLOUDY (CLEAR); UR COLOR YELLOW (YELLOW); UR GLUCOSE (Dip) NEGATIVE (NEGATIVE); UR KETONES (Dip) NEGATIVE (NEGATIVE); UR LEUKOCYTE ESTERASE (Dip) NEGATIVE Leu/ul (NEGATIVE); UR NITRITE (Dip) NEGATIVE (NEGATIVE); UR RBC 0 /HPF (0-5); UR SPECIFIC GRAVITY (Dip) 1.025 (1.003-1.030); UR TOTAL PROTEIN (Dip) NEGATIVE (NEGATIVE); UR UROBILINOGEN (Dip) 1+ mg/dL (NEGATIVE)
[2017-03-27 20:16] LABS: ALBUMIN 3.9 g/dl (3.3-4.9); ALBUMIN/GLOBULIN RATIO 1.3; BILIRUBIN,INDIRECT 0.1 mg/dl (0-1.1); BILIRUBIN,TOTAL 0.1 mg/dl (0.2-1.3); CALCIUM 8.9 mg/dl (8.4-10.2); CREATININE 0.68 mg/dl (0.44-1.00); POTASSIUM 3.8 mmol/L (3.5-5.1); TOTAL PROTEIN 6.9 g/dl (6.1-8.1)
--- NOTE | 2017-03-27 20:48 | RADRPT ---
PROCEDURE: CT abdomen and pelvis without intravenous contrast. CLINICAL INDICATION: Pain. TECHNIQUE: CT of the abdomen/pelvis was performed utilizing axial images with reconstructions in s agittal and coronal planes. The administered radiation dose is CTDI 4.8 mGy, DLP 272 mGy-cm. One or more of the following dose reduction techniques were used: automated exposure control, adjustment of the mA and/or kV according to patient size and/or use of iterative reconstruction technique. DICOM images are available. COMPARISON: 12/26/2016 FINDINGS: Visualized Chest: The visualized lung bases are clear. Abdomen: The liver, spleen, gallbladder,and adrenal glands are unremarkable. There are mild peripancreatic fat infiltrative changes. There is a 4.5 cm cystic lesion within the pancreatic tail, increased in s ize compared to the prior exam. A small amount of free fluid surrounds the spleen. The kidneys are without hydronephrosis. There are punctate bilateral nonobstructive intrarenal calc el. There is no evidence of bowel obstruction. The appendix is normal. No intra-abdominal free air is seen. Some increased formed stool is noted throughout the colon. There is no evidence of intra-abdominal adenopathy or free fluid. Pelvis: There is no evidence of pelvic adenopathy. The uterus and ovaries are without enlargement. The uri nary bladder is unremarkable. There is no pelvic free fluid. Osseous structures: Unremarkable. IMPRESSION: Acute pancreatitis with a presumed pseudocyst in the pancreatic tail there is increase in size cayden red to the prior exam. Bilateral nephrolithiasis. Increased formed stool throughout the colon suggestive of constipation. RPTAT: HIKT .Bladimir Parr MD, MD Date Time Electronically viewed and signed by .Bladimir Parr MD, on 03/27/2017 20:48 .T/
[2017-03-27] MEDS ORDERED: HYDROmorphONE 1 MG/ML SYG IV STA (21:31)
[2017-03-27] MEDS ORDERED: SOD CHLORIDE 0.9% 1,000 ML IV SCH (21:59)
[2017-03-27] MEDS ORDERED: ACETAMINOPHEN 325 MG TAB PO PRN (22:00)
[2017-03-27] MEDS ORDERED: ONDANSETRON 4 MG INJ IV PRN (22:00)
[2017-03-27 22:58] VITALS: PULSE 89; TEMP 98.4
[2017-03-27 23:38] VITALS: Ht 154.9 cm; Wt 51.5 kg
[2017-03-27 23:46] VITALS: BP 110/90; RESP 18
[2017-03-28] MEDS ORDERED: ZOLP10TA5 PO (01:03)
[2017-03-28] MEDS ORDERED: LIT300 PO (01:03)
[2017-03-28] MEDS ORDERED: TOPI50TA86 PO (01:03)
[2017-03-28] MEDS ORDERED: TRAM50TA2 PO (01:03)
[2017-03-28] MEDS ORDERED: PANT40TA4 PO (01:03)
[2017-03-28] MEDS ORDERED: LEVE500T8 PO (01:03)
[2017-03-28] MEDS ORDERED: PARO40TA79 PO (01:03)
[2017-03-28 02:00] VITALS: BP 114/78; RESP 18
[2017-03-28] MEDS ORDERED: DIPHENHYDRAMINE 50 MG INJ IV ONE (03:00)
[2017-03-28] MEDS ORDERED: METOCLOPRAMIDE 10 MG INJ IV PRN (03:00)
[2017-03-28] MEDS: SOD CHLORIDE 0.9% 1,000 ML IV SCH ×4 (03:09→20:03)
[2017-03-28] MEDS: morphine 2 MG INJ IV PRN ×7 (03:09→19:59)
[2017-03-28 06:51] LABS: EOSINOPHILS # 0.1 10^3/ul (0.0-0.5); EOSINOPHILS % 3.5 % (0.0-7.0); HEMATOCRIT 28.7 % (37.0-47.0); HEMOGLOBIN 8.5 g/dl (12.0-16.0); LYMPHOCYTES # 1.3 10^3/ul (0.8-2.9); LYMPHOCYTES % 33.2 % (15.0-51.0); MEAN CORPUSCULAR HEMOGLOBIN 29.1 pg (29.0-33.0); MEAN CORPUSCULAR HGB CONC 29.6 g/dl (32.0-37.0); MEAN CORPUSCULAR VOLUME 98.3 fl (82.0-101.0); MEAN PLATELET VOLUME 11.2 fl (7.4-10.4); MONOCYTE # 0.4 10^3/ul (0.3-0.9); MONOCYTES % 9.2 % (0.0-11.0); NEUTROPHIL # 2.1 10^3/ul (1.6-7.5); NEUTROPHILS % 52.9 % (39.0-77.0); PLATELET COUNT 106 10^3/UL (140-415); RED BLOOD COUNT 2.92 10^6/ul (4.20-5.40); RED CELL DISTRIBUTION WIDTH 18.7 % (11.5-14.5)
[2017-03-28] MEDS: PANTOPRAZOLE 40 MG INJ IV SCH (07:03)
[2017-03-28 07:07] LABS: ALBUMIN 2.6 g/dl (3.3-4.9); ALBUMIN/GLOBULIN RATIO 0.92; BILIRUBIN,INDIRECT 0.3 mg/dl (0-1.1); BILIRUBIN,TOTAL 0.3 mg/dl (0.2-1.3); CALCIUM 7.9 mg/dl (8.4-10.2); CREATININE 0.58 mg/dl (0.44-1.00); POTASSIUM 3.6 mmol/L (3.5-5.1); TOTAL PROTEIN 5.4 g/dl (6.1-8.1)
[2017-03-28 07:35] VITALS: BP 114/79; RESP 16
[2017-03-28] MEDS ORDERED: traMADol 50 MG TAB PO PRN (08:00)
[2017-03-28] MEDS: ONDANSETRON 4 MG INJ IV PRN (08:51)
[2017-03-28] MEDS: LEVETIRACETAM 500 MG TAB PO SCH ×2 (10:15→20:12)
[2017-03-28] MEDS: SUCRALFATE 1 GM TAB PO SCH ×2 (10:16→20:12)
[2017-03-28] MEDS: AMLODIPINE 5 MG TAB PO SCH (10:20)
--- NOTE | 2017-03-28 11:19 | HP ---
RUT MADRIGAL 03/28/17 1119: Date/Time of Note Date/Time of Note DATE: 03/28/17 TIME: : Assessment/Plan VTE Prophylaxis VTE Prophylaxis Intervention: SCD's Lines/Catheters [facility] Peripheral IV Urinary Cath still in place: No Assessment/Plan Chief Complaint/Hosp Course 1. Abdominal pain possible due to acute pancreatitis with a presumed pseudocyst. CT scan showed a pseudocyst in the pancreatic tail there is increase in size compared to the prior exam. 2. Constipation 3. Anemia 4. Hs migraine 5. Hx alcohol abuse 6. Hx elevated LFTs 7. Thrombocytopenia 8.Depression, mild Problems: Assessment/Plan Problems: Assessment/Plan 1. NPO 2.Dr Berry for consult 3. IV fluids and pain control 4. rectal suppository for relief of constipation HPI/ROS Admit Date/Time Admit Date/Time Mar 27, 2017 at 22:00 Hx of Present Illness 37-year-old female with history of previous pancreatitis and previous admissions due to abdominal pain during this year presented to emergency department on for complaints of left lower quadrant abdominal pain radiating to the left flank area that started 4 days ago. Patient describes the pain as sharp pain, 6/10 scale, as was upon movement accompanied with vomiting. Patient reporting 1 week of constipation. Patient denies any hematuria or dysuria. Patient denies any blood in his stool or black stool. Patient denies any fever or chills. Patient also is lifting heavy weight, while moving and at work, she has had this 3 days ago, may have also caused the pain. ROS Constitutional: weight change Gastrointestinal: nausea, No constipation, No decreased appetite, No flatus, No no complaints, No other , No passing stool Musculoskeletal: no complaints Skin: no complaints Neurologic: confusion, dizziness, focal-weakness, headache, no complaints, other (depression), seizure, syncope Psychological: depression PMH/Family/Social Past Medical History Medical History: hypertension, other (pancreatitis) Past Surgical History Past Surgical Hx: no surgical history Social History Alcohol Use: occasionally Smoking Status: Never smoker Drug Use: none Exam/Review of Systems Vital Signs Vitals Vital Signs Date Time Temp Pulse Resp B/P Pulse Ox O2 Delivery O2 Flow Rate FiO2 03/28/17 07:35 97.9 66 16 114/79 98 03/27/17 22:58 Room Air Intake and Output 03/27/17 03/27/17 03/28/17 15:00 23:00 07:00 Intake Total 320 ml Balance 320 ml Exam Exam pale Constitutional: alert, oriented Respiratory: clear to auscultation Cardiovascular: regular rate and rhythm Gastrointestinal: rebound or guarding, soft Genitourinary - Female: nl external genitalia Musculoskeletal: nl extremities to inspection Extremities: normal pulses Labs Result Diagram: 03/28/1760603/28/17 06 Medications Medications Current Medications Sodium Chloride (NS) 1,000 ml @ 125 mls/hr Q8H IV Last administered on 03:09; Admin Dose 125 MLS/HR; Start 03/28/17 at 03:00 Hydromorphone HCl (Dilaudid) 1 mg Q4H PRN IV PAIN; Start 03/28/17 at 03:00 Morphine Sulfate (morphine) 2 mg Q3 PRN IV PAIN Last administered on 10:15; Admin Dose 2 MG; Start 03/28/17 at 03:00 Ondansetron HCl (Zofran Inj) 4 mg Q4H PRN IV NAUSEA AND/OR VOMITING Last administered on 03/28/17 08:51; Admin Dose 4 MG; Start 03/28/17 at 03:00 Pantoprazole (Protonix Iv) 40 mg DAILY@06 IV Last administered on 03/28/17 07 :03; Admin Dose 40 MG; Start 03/28/17 at 06:00 Amlodipine Besylate (Norvasc) 5 mg DAILY PO Last administered on 03/28/17 10: 20; Admin Dose 5 MG; Start 03/28/17 at 09:00 Levetiracetam (Keppra) 500 mg BID PO Last administered on 03/28/17 10:15; Admin Dose 500 MG; Start 03/28/17 at 09:00 [place] Carbonate ([place] Carbonate) 300 mg QHS PO ; Start 03/28/17 at 21:00 Paroxetine HCl (Paxil) 40 mg HS PO ; Start 03/28/17 at 21:00 Sucralfate (Carafate) 1 gm BID PO Last administered on 03/28/17 10:16; Admin Dose 1 GM; Start 03/28/17 at 09:00 Topiramate (Topamax) 50 mg QHS PO ; Start 03/28/17 at 21:00 Tramadol HCl (Ultram) 50 mg BID PRN PO PAIN; Start 03/28/17 at 08:00 Zolpidem Tartrate (Ambien) 10 mg QHS PO ; Start 03/28/17 at 21:00 ALEX DE LEÓN MD 03/28/17 1519: Assessment/Plan Assessment/Plan Assessment/Plan Recurrent pancreatitis ? alcholol , CT A+P negative for GB stones, pseudocyst increased in size Exam/Review of Systems Labs Result Diagram: 03/28/17 0607 03/28/17 0606 RUT MADRIGAL Mar 28, 2017 11:19 ALEX DE LEÓN MD Mar 28, 2017 15:19
[2017-03-28] MEDS ORDERED: NA PHOSPHATE/BIPHOS 133 ML ENEMA PR ONE (11:30)
[2017-03-28] MEDS ORDERED: BISACODYL 10 MG SUPP PR PRN (11:30)
[2017-03-28 12:32] LABS: HEMOGLOBIN 8.8 g/dl (12.0-16.0)
[2017-03-28 14:12] VITALS: BP 120/87; RESP 16
[2017-03-28] MEDS: TOPIRAMATE 25 MG TAB PO SCH (20:12)
[2017-03-28] MEDS: LITHIUM CARBONATE 300 MG CAP PO SCH (20:12)
[2017-03-28] MEDS: PAROXETINE 20 MG TAB PO SCH (20:13)
[2017-03-28 20:27] VITALS: BP 107/73; RESP 18
[2017-03-28] MEDS: ZOLPIDEM 5 MG TAB PO SCH (21:54)
[2017-03-29] MEDS: morphine 2 MG INJ IV PRN ×7 (00:08→20:09)
[2017-03-29] MEDS ORDERED: DIPHENHYDRAMINE 50 MG INJ IV ONE (01:00)
[2017-03-29 02:16] VITALS: BP 107/75; RESP 18
[2017-03-29] MEDS: SOD CHLORIDE 0.9% 1,000 ML IV SCH ×3 (05:12→20:22)
[2017-03-29] MEDS: PANTOPRAZOLE 40 MG INJ IV SCH (05:13)
[2017-03-29 05:55] LABS: BASOPHILS % 0.7 % (0.0-2.0); EOSINOPHILS # 0.2 10^3/ul (0.0-0.5); EOSINOPHILS % 3.7 % (0.0-7.0); HEMATOCRIT 29.5 % (37.0-47.0); HEMOGLOBIN 8.6 g/dl (12.0-16.0); LYMPHOCYTES # 1.1 10^3/ul (0.8-2.9); LYMPHOCYTES % 26.2 % (15.0-51.0); MEAN CORPUSCULAR HEMOGLOBIN 28.9 pg (29.0-33.0); MEAN CORPUSCULAR HGB CONC 29.2 g/dl (32.0-37.0); MEAN PLATELET VOLUME 10.5 fl (7.4-10.4); MONOCYTE # 0.4 10^3/ul (0.3-0.9); MONOCYTES % 9.8 % (0.0-11.0); NEUTROPHIL # 2.4 10^3/ul (1.6-7.5); NEUTROPHILS % 59.4 % (39.0-77.0); PLATELET COUNT 110 10^3/UL (140-415); RED BLOOD COUNT 2.98 10^6/ul (4.20-5.40); RED CELL DISTRIBUTION WIDTH 18.2 % (11.5-14.5); WHITE BLOOD COUNT 4.1 10^3/ul (4.8-10.8)
[2017-03-29 06:07] LABS: ALBUMIN 2.4 g/dl (3.3-4.9); ALBUMIN/GLOBULIN RATIO 0.92; BILIRUBIN,INDIRECT 0.2 mg/dl (0-1.1); BILIRUBIN,TOTAL 0.2 mg/dl (0.2-1.3); CREATININE 0.58 mg/dl (0.44-1.00); POTASSIUM 3.7 mmol/L (3.5-5.1)
[2017-03-29] MEDS: ONDANSETRON 4 MG INJ IV PRN ×4 (06:21→20:09)
[2017-03-29 08:00] VITALS: BP 111/84; RESP 18
[2017-03-29] MEDS: LEVETIRACETAM 500 MG TAB PO SCH ×2 (08:42→20:16)
[2017-03-29] MEDS: AMLODIPINE 5 MG TAB PO SCH (08:42)
[2017-03-29] MEDS: SUCRALFATE 1 GM TAB PO SCH ×2 (08:42→20:15)
--- NOTE | 2017-03-29 10:58 | PN ---
Date/Time of Note Date/Time of Note DATE: 03/29/17 TIME: 10:55 Assessment/Plan VTE Prophylaxis VTE Prophylaxis Intervention: SCD's Lines/Catheters IV Catheter Type (from Nrs): Peripheral IV Urinary Cath still in place: No Assessment/Plan Chief Complaint/Hosp Course 1. Abdominal pain possible due to acute pancreatitis with a presumed pseudocyst. CT scan showed a pseudocyst in the pancreatic tail there is increase in size compared to the prior exam. 2. Constipation 3. Anemia 4. Hs migraine 5. Hx alcohol abuse 6. Hx elevated LFTs 7. Thrombocytopenia 8.Depression, mild 9. bARTOLINI CYST INFLAMATION, POSSIBLE ABSCESS Problems: Assessment/Plan 1. continue clear liquid 2. dr Jamal connolly 3. Pain control 4. Spoke to nurse [address] Callejas , gynecology to address Bartholin cyst inflammation. Subjective 24 Hr Interval Summary Eyes: no complaints Genitourinary: other (labia majora right pain) Exam/Review of Systems Vital Signs Vitals Vital Signs Date Time Temp Pulse Resp B/P Pulse Ox O2 Delivery O2 Flow Rate FiO2 03/29/17 02:16 98.3 73 18 107/75 100 03/27/17 22:58 Room Air Intake and Output 03/28/17 03/28/17 03/29/17 15:00 23:00 07:00 Intake Total 875 ml 1320 ml 1560 ml Balance 875 ml 1320 ml 1560 ml Exam Constitutional: oriented Neck: supple Respiratory: clear to auscultation Gastrointestinal: rebound or guarding, soft Genitourinary - Female: other (labia majora edema and pain on palpation) Results Result Diagram: 03/29/1728 03/29/17 0528 Results 24 hrs Laboratory Tests Test 03/28/17 12:22 03/29/17 05:28 Hemoglobin 8.8 L 8.6 L Hematocrit 30.0 L 29.5 L White Blood Count 4.1 L Red Blood Count 2.98 L Mean Corpuscular Volume 99.0 Mean Corpuscular Hemoglobin 28.9 L Mean Corpuscular Hemoglobin Concent 29.2 L Red Cell Distribution Width 18.2 H Platelet Count 110 L Mean Platelet Volume 10.5 H Neutrophils % 59.4 Lymphocytes % 26.2 Monocytes % 9.8 Eosinophils % 3.7 Basophils % 0.7 Nucleated Red Blood Cells % 0.0 Neutrophils # 2.4 Lymphocytes # 1.1 Monocytes # 0.4 Eosinophils # 0.2 Basophils # 0.0 Nucleated Red Blood Cells # 0.0 Sodium Level 144 Potassium Level 3.7 Chloride Level 116 H Carbon Dioxide Level 23 Anion Gap 9 Blood Urea Nitrogen 7 Creatinine 0.58 Glucose Level 91 Calcium Level 8.0 L Total Bilirubin 0.2 Direct Bilirubin 0.00 Indirect Bilirubin 0.2 Aspartate Amino Transf (AST/SGOT) 18 Alanine Aminotransferase (ALT/SGPT) 23 Alkaline Phosphatase 71 Total Protein 5.0 L Albumin 2.4 L Globulin 2.60 Albumin/Globulin Ratio 0.92 Medications Medications Current Medications Sodium Chloride (NS) 1,000 ml @ 125 mls/hr Q8H IV Last administered on 05:12; Admin Dose 125 MLS/HR; Start 03/28/17 at 03:00 Hydromorphone HCl (Dilaudid) 1 mg Q4H PRN IV PAIN; Start 03/28/17 at 03:00 Morphine Sulfate (morphine) 2 mg Q3 PRN IV PAIN Last administered on 09:26; Admin Dose 2 MG; Start 03/28/17 at 03:00 Ondansetron HCl (Zofran Inj) 4 mg Q4H PRN IV NAUSEA AND/OR VOMITING Last administered on 03/29/17 09:26; Admin Dose 4 MG; Start 03/28/17 at 03:00 Pantoprazole (Protonix Iv) 40 mg DAILY@06 IV Last administered on 03/29/17 05 :13; Admin Dose 40 MG; Start 03/28/17 at 06:00 Amlodipine Besylate (Norvasc) 5 mg DAILY PO Last administered on 03/29/17 08: 42; Admin Dose 5 MG; Start 03/28/17 at 09:00 Levetiracetam (Keppra) 500 mg BID PO Last administered on 03/29/17 08:42; Admin Dose 500 MG; Start 03/28/17 at 09:00 [place] Carbonate ([place] Carbonate) 300 mg QHS PO Last administered on 20:12; Admin Dose 300 MG; Start 03/28/17 at 21:00 Paroxetine HCl (Paxil) 40 mg HS PO Last administered on 03/28/17 20:13; Admin Dose 40 MG; Start 03/28/17 at 21:00 Sucralfate (Carafate) 1 gm BID PO Last administered on 03/29/17 08:42; Admin Dose 1 GM; Start 03/28/17 at 09:00 Topiramate (Topamax) 50 mg QHS PO Last administered on 03/28/17 20:12; Admin Dose 50 MG; Start 03/28/17 at 21:00 Tramadol HCl (Ultram) 50 mg BID PRN PO PAIN; Start 03/28/17 at 08:00 Zolpidem Tartrate (Ambien) 10 mg QHS PO Last administered on 03/28/17 21:54; Admin Dose 10 MG; Start 03/28/17 at 21:00 Bisacodyl (Dulcolax Supp) 10 mg DAILY PRN HI CONSTIPATION Last administered on 03/28/17 12:06; Admin Dose 10 MG; Start 03/28/17 at 11:30 RUT MADRIGAL Mar 29, 2017 10:58
[2017-03-29 14:00] VITALS: BP_SYST 107; RESP 18
--- NOTE | 2017-03-29 14:21 | CONS ---
DATE OF ADMISSION: 03/27/2017 DATE OF CONSULTATION: REFERRING PHYSICIAN: Dr. Aleshia Gomez. HISTORY OF PRESENT ILLNESS: The patient is a 37-year-old female with a history of pancreatitis, had drainage of the pseudocyst 2 weeks ago, comes to the hospital complaining of abdominal pain. She d enies drinking alcohol, no nausea, no vomiting, no chest pain, no shortness of breath, no fever, no chills. The patient also complains of constipation. REVIEW OF SYSTEMS: Otherwise negative. She had EGD done by me 1 year ago which was negative. PAST MEDICAL HISTORY: Hypertension and pancreatitis. PAST SURGICAL HISTORY: None. SOCIAL HISTORY: Drinks alcohol occasionally, last drink was 1 month ago. PHYSICAL EXAMINATION GENERAL: Thin, well nourished, not in distress. VITAL SIGNS: Stable. HEENT: Unremarkable. NECK: Supple, no thyromegaly, no lymphadenopathy. CARDIOVASCULAR: No murmur, gallop or click. LUNGS: Clear. ABDOMEN: Benign. EXTREMITIES: No edema. CENTRAL NERVOUS SYSTEM: Grossly within normal limits. CAT scan of the abdomen and pelvis done which shows pancreatitis with pseudocyst in the tail of the pancreas. LABORATORY DATA: Hematocrit is 29. WBC is not elevated. CMP is grossly within normal limits. WBC is 4.1, platelet count is 110. IMPRESSION: 1. Acute pancreatitis. 2. Pseudocyst. 3. Constipation. 4. History of migraine. 5. History of alcohol abuse. 6. Mild thrombocytopenia. 7. Depression. PLAN: At this point, is on a clear liquid diet. Continue n.p.o., pain management, IV hydration. Amitiza for her constipation. The pseudocyst should dissolve on its own with a period of time and t his pseudocyst is not large enough to be drained. Dictated By: HELIO DEAN/NTS Conf#: [id number] DID#: [id number] CC: YASMANI LUND MD; ALESHIA GOMEZ MD;*EndCC*
--- NOTE | 2017-03-29 15:00 | CONS ---
DATE OF ADMISSION: 03/27/2017 DATE OF CONSULTATION: 03/29/2017 [id number] you for consulting with us. HISTORY OF PRESENT ILLNESS: This is a 37-year-old lady with diagnosis of possible pancreatitis, alt josefina the patient at [facility] term size had preeclampsia during there is, he was closed. PAST MEDICAL HISTORY: Denies. PAST SURGICAL HISTORY: Denies. This is a 37-year-old diagnosed with possible pancreatitis. The patient had history of Bartholin's cyst and it seems like there is a new one that was drained recently. PAST MEDICAL HISTORY: Denies. Sexually active. PAST SURGICAL HISTORY: Denies. ALLERGIES: NKDA PHYSICAL EXAMINATION: VITAL SIGNS: Stable. GENERAL: Normal. GENITAL: Normal. There is a 1 cm incision was seen on labia majora in the right side. There is a folliculitis and cellulitis was noticed at the mons pubis. Most exaggerated on the right side up cl oser. ASSESSMENT AND PLAN: A 37-year-old, with history of Bartholin's cyst and now she has cellulitis and folliculitis at the mons pubis. I do recommend to start Keflex 500 mg p.o. q. 6 hours for 5 to 7 d ays. If there are any new findings, please do not hesitate to contact the [employer]ODUCTION D[employer]ING [employer]PERATOR team at [phone]. Dictated By: LOIVIA MORILLO/NTS Conf#: [id number] DID#: [id number]
[2017-03-29] MEDS: CEPHALEXIN 500 MG CAP PO SCH (17:50)
[2017-03-29 19:38] VITALS: BP 104/73; RESP 16
[2017-03-29] MEDS: PAROXETINE 20 MG TAB PO SCH (20:15)
[2017-03-29] MEDS: TOPIRAMATE 25 MG TAB PO SCH (20:16)
[2017-03-29] MEDS: ZOLPIDEM 5 MG TAB PO SCH (21:05)
[2017-03-29] MEDS: LITHIUM CARBONATE 300 MG CAP PO SCH (21:06)
[2017-03-30] MEDS: CEPHALEXIN 500 MG CAP PO SCH ×4 (00:14→17:13)
[2017-03-30] MEDS: morphine 2 MG INJ IV PRN ×8 (00:15→22:00)
[2017-03-30 02:03] VITALS: BP 107/75; RESP 20
[2017-03-30] MEDS: SOD CHLORIDE 0.9% 1,000 ML IV SCH ×3 (03:28→20:13)
[2017-03-30] MEDS: PANTOPRAZOLE 40 MG INJ IV SCH (06:23)
[2017-03-30] MEDS: SUCRALFATE 1 GM TAB PO SCH ×2 (09:03→22:00)
[2017-03-30] MEDS: ONDANSETRON 4 MG INJ IV PRN ×2 (09:03→22:00)
[2017-03-30] MEDS: AMLODIPINE 5 MG TAB PO SCH (09:04)
[2017-03-30] MEDS: LEVETIRACETAM 500 MG TAB PO SCH ×2 (09:04→22:50)
[2017-03-30 09:53] VITALS: BP 108/76; RESP 16
--- NOTE | 2017-03-30 10:27 | PN ---
RUT MADRIGAL 03/30/17 1027: Date/Time of Note Date/Time of Note DATE: 03/30/17 TIME: 10:25 Assessment/Plan VTE Prophylaxis VTE Prophylaxis Intervention: ambulation Lines/Catheters IV Catheter Type (from Nrs): Peripheral IV Urinary Cath still in place: No Assessment/Plan Chief Complaint/Hosp Course 1. Abdominal pain possible due to acute pancreatitis with a presumed pseudocyst. CT scan showed a pseudocyst in the pancreatic tail there is increase in size compared to the prior exam. 2. Constipation 3. Anemia 4. Hs migraine 5. Hx alcohol abuse 6. Hx elevated LFTs 7. Thrombocytopenia 8. Depression, mild 9. cellulitis and folliculitis at the mons pubis Problems: Assessment/Plan 1. Continue NPO 2. Continue a/b 3. Keep IV fluids Subjective 24 Hr Interval Summary Gastrointestinal: pain Genitourinary: other (pain mons pubis) Exam/Review of Systems Vital Signs Vitals Vital Signs Date Time Temp Pulse Resp B/P Pulse Ox O2 Delivery O2 Flow Rate FiO2 03/30/17 09:53 97.9 66 16 108/76 97 03/27/17 22:58 Room Air Intake and Output 03/29/17 03/29/17 03/30/17 15:00 23:00 07:00 Intake Total 750 ml 1507 ml 1450 ml Output Total 1500 ml Balance 750 ml 1507 ml -50 ml Exam Constitutional: alert, oriented Cardiovascular: regular rate and rhythm Gastrointestinal: rebound or guarding, soft Genitourinary - Female: other ( cellulitis and folliculitis at the mons pubis) Results Result Diagram: 03/29/17 0528 03/29/1728 Medications Medications Current Medications Sodium Chloride (NS) 1,000 ml @ 125 mls/hr Q8H IV Last administered on 03:28; Admin Dose 125 MLS/HR; Start 03/28/17 at 03:00 Hydromorphone HCl (Dilaudid) 1 mg Q4H PRN IV PAIN; Start 03/28/17 at 03:00 Morphine Sulfate (morphine) 2 mg Q3 PRN IV PAIN Last administered on 09:25; Admin Dose 2 MG; Start 03/28/17 at 03:00 Ondansetron HCl (Zofran Inj) 4 mg Q4H PRN IV NAUSEA AND/OR VOMITING Last administered on 03/30/17 09:03; Admin Dose 4 MG; Start 03/28/17 at 03:00 Pantoprazole (Protonix Iv) 40 mg DAILY@06 IV Last administered on 03/30/17 06 :23; Admin Dose 40 MG; Start 03/28/17 at 06:00 Amlodipine Besylate (Norvasc) 5 mg DAILY PO Last administered on 03/30/17 09: 04; Admin Dose 5 MG; Start 03/28/17 at 09:00 Levetiracetam (Keppra) 500 mg BID PO Last administered on 03/30/17 09:04; Admin Dose 500 MG; Start 03/28/17 at 09:00 [place] Carbonate ([place] Carbonate) 300 mg QHS PO Last administered on 21:06; Admin Dose 300 MG; Start 03/28/17 at 21:00 Paroxetine HCl (Paxil) 40 mg HS PO Last administered on 03/29/17 20:15; Admin Dose 40 MG; Start 03/28/17 at 21:00 Sucralfate (Carafate) 1 gm BID PO Last administered on 03/30/17 09:03; Admin Dose 1 GM; Start 03/28/17 at 09:00 Topiramate (Topamax) 50 mg QHS PO Last administered on 03/29/17 20:16; Admin Dose 50 MG; Start 03/28/17 at 21:00 Tramadol HCl (Ultram) 50 mg BID PRN PO PAIN; Start 03/28/17 at 08:00 Zolpidem Tartrate (Ambien) 10 mg QHS PO Last administered on 03/29/17 21:05; Admin Dose 10 MG; Start 03/28/17 at 21:00 Bisacodyl (Dulcolax Supp) 10 mg DAILY PRN [place] CONSTIPATION Last administered on 03/28/17 12:06; Admin Dose 10 MG; Start 03/28/17 at 11:30 Cephalexin (Keflex) 500 mg Q6 PO Last administered on 03/30/17 06:23; Admin Dose 500 MG; Start 03/29/17 at 18:00 ALEX DE LEÓN MD 03/30/17 1644: Assessment/Plan Assessment/Plan Assessment/Plan full liquids per Dr Berry Exam/Review of Systems Results Result Diagram: 03/29/17 0528 03/29/17 0528 RUT MADRIGAL Mar 30, 2017 10:27 ALEX DE LEÓN MD Mar 30, 2017 16:44
--- NOTE | 2017-03-30 15:59 | CONS ---
Date/Time of Note Date/Time of Note DATE: 03/30/17 TIME: 15:58 Assessment/Plan Assessment/Plan Additional Assessment/Plan CAT scan of the abdomen and pelvis done which shows pancreatitis with pseudocyst in the tail of the pancreas. LABORATORY DATA: Hematocrit is 29. WBC is not elevated. CMP is grossly within normal limits. WBC is 4.1, platelet count is 110. IMPRESSION: 1. Acute pancreatitis. 2. Pseudocyst. 3. Constipation. 4. History of migraine. 5. History of alcohol abuse. 6. Mild thrombocytopenia. 7. Depression. PLAN: At this point, is on a clear liquid diet. Continue n.p.o., pain management, IV hydration. Amitiza for her constipation. The pseudocyst should dissolve on its own with a period of time and this pseudocyst is not large enough to be drained. Advance to full liquid diet Continue antibiotics as per MACHINE SORTER Consultation Date/Type/Reason Admit Date/Time Mar 27, 2017 at 22:00 Initial Consult Date 24 HR Interval Summary Free Text/Dictation Patient is hungry Constitutional: improved Exam/Review of Systems Vital Signs Vitals Vital Signs Date Time Temp Pulse Resp B/P Pulse Ox O2 Delivery O2 Flow Rate FiO2 03/30/17 09:53 97.9 66 16 108/76 97 03/27/17 22:58 Room Air Intake and Output 03/29/17 03/29/17 03/30/17 15:00 23:00 07:00 Intake Total 750 ml 1507 ml 1450 ml Output Total 1500 ml Balance 750 ml 1507 ml -50 ml Exam Constitutional: alert, oriented, well developed Psych: nl mood/affect, no complaints Head: atraumatic, normocephalic Eyes: EOMI, PERRL, nl conjunctiva, nl lids, nl sclera ENMT: nl external ears & nose, nl lips & teeth, nl nasal mucosa & septum Neck: non-tender, supple Respiratory: clear to auscultation, normal air movement Cardiovascular: nl pulses, regular rate and rhythm Gastrointestinal: nl liver, spleen, non-tender, soft Musculoskeletal: nl extremities to inspection, nl gait and stance Extremities: normal pulses Neurological: ELECTRIC DISTRIBUTION ENGINEER II-XII intact, nl mental status, nl speech, nl strength Skin: nl turgor, No rash or lesions Lymph: nl lymph nodes Results Result Diagram: 03/29/1752703/29/17527 Medications Medications Current Medications Sodium Chloride (NS) 1,000 ml @ 125 mls/hr Q8H IV Last administered on 11:30; Admin Dose 125 MLS/HR; Start 03/28/17 at 03:00 Hydromorphone HCl (Dilaudid) 1 mg Q4H PRN IV PAIN; Start 03/28/17 at 03:00 Morphine Sulfate (morphine) 2 mg Q3 PRN IV PAIN Last administered on 15:56; Admin Dose 2 MG; Start 03/28/17 at 03:00 Ondansetron HCl (Zofran Inj) 4 mg Q4H PRN IV NAUSEA AND/OR VOMITING Last administered on 03/30/17 09:03; Admin Dose 4 MG; Start 03/28/17 at 03:00 Pantoprazole (Protonix Iv) 40 mg DAILY@06 IV Last administered on 03/30/17 06 :23; Admin Dose 40 MG; Start 03/28/17 at 06:00 Amlodipine Besylate (Norvasc) 5 mg DAILY PO Last administered on 03/30/17 09: 04; Admin Dose 5 MG; Start 03/28/17 at 09:00 Levetiracetam (Keppra) 500 mg BID PO Last administered on 03/30/17 09:04; Admin Dose 500 MG; Start 03/28/17 at 09:00 [place] Carbonate ([place] Carbonate) 300 mg QHS PO Last administered on 21:06; Admin Dose 300 MG; Start 03/28/17 at 21:00 Paroxetine HCl (Paxil) 40 mg HS PO Last administered on 03/29/17 20:15; Admin Dose 40 MG; Start 03/28/17 at 21:00 Sucralfate (Carafate) 1 gm BID PO Last administered on 03/30/17 09:03; Admin Dose 1 GM; Start 03/28/17 at 09:00 Topiramate (Topamax) 50 mg QHS PO Last administered on 03/29/17 20:16; Admin Dose 50 MG; Start 03/28/17 at 21:00 Tramadol HCl (Ultram) 50 mg BID PRN PO PAIN; Start 03/28/17 at 08:00 Zolpidem Tartrate (Ambien) 10 mg QHS PO Last administered on 03/29/17 21:05; Admin Dose 10 MG; Start 03/28/17 at 21:00 Bisacodyl (Dulcolax Supp) [address] CONSTIPATION Last administered on 03/28/17 12:06; Admin Dose 10 MG; Start 03/28/17 at 11:30 Cephalexin (Keflex) 500 mg Q6 PO Last administered on 03/30/17 11:29; Admin Dose 500 MG; Start 03/29/17 at 18:00 HELIO DUNBAR MD Mar 30, 2017 15:59
[2017-03-30 16:34] VITALS: BP 101/68; RESP 17
[2017-03-30 20:48] VITALS: BP 114/83; RESP 17
[2017-03-30] MEDS: LITHIUM CARBONATE 300 MG CAP PO SCH (21:00)
[2017-03-30] MEDS: PAROXETINE 20 MG TAB PO SCH (22:50)
[2017-03-30] MEDS: TOPIRAMATE 25 MG TAB PO SCH (22:51)
[2017-03-30] MEDS: ZOLPIDEM 5 MG TAB PO SCH (23:11)
[2017-03-31] MEDS: CEPHALEXIN 500 MG CAP PO SCH ×5 (00:16→23:50)
[2017-03-31] MEDS: morphine 2 MG INJ IV PRN ×7 (01:08→23:50)
[2017-03-31 02:00] VITALS: BP 130/88; RESP 17
[2017-03-31] MEDS: PANTOPRAZOLE (EC) 40 MG TAB PO SCH (05:20)
[2017-03-31 05:38] LABS: BASOPHILS % 0.3 % (0.0-2.0); EOSINOPHILS # 0.1 10^3/ul (0.0-0.5); HEMATOCRIT 29.8 % (37.0-47.0); HEMOGLOBIN 8.7 g/dl (12.0-16.0); LYMPHOCYTES # 0.9 10^3/ul (0.8-2.9); LYMPHOCYTES % 24.8 % (15.0-51.0); MEAN CORPUSCULAR HEMOGLOBIN 28.7 pg (29.0-33.0); MEAN CORPUSCULAR HGB CONC 29.2 g/dl (32.0-37.0); MEAN CORPUSCULAR VOLUME 98.3 fl (82.0-101.0); MEAN PLATELET VOLUME 10.9 fl (7.4-10.4); MONOCYTE # 0.3 10^3/ul (0.3-0.9); MONOCYTES % 7.5 % (0.0-11.0); NEUTROPHIL # 2.4 10^3/ul (1.6-7.5); NEUTROPHILS % 64.1 % (39.0-77.0); PLATELET COUNT 110 10^3/UL (140-415); RED BLOOD COUNT 3.03 10^6/ul (4.20-5.40); WHITE BLOOD COUNT 3.7 10^3/ul (4.8-10.8)
[2017-03-31 06:04] LABS: ALBUMIN 2.3 g/dl (3.3-4.9); ALBUMIN/GLOBULIN RATIO 0.82; BILIRUBIN,INDIRECT 0.2 mg/dl (0-1.1); BILIRUBIN,TOTAL 0.2 mg/dl (0.2-1.3); CALCIUM 7.9 mg/dl (8.4-10.2); CREATININE 0.54 mg/dl (0.44-1.00); POTASSIUM 3.5 mmol/L (3.5-5.1); TOTAL PROTEIN 5.1 g/dl (6.1-8.1)
[2017-03-31 06:27] LABS: MAGNESIUM 1.8 mg/dl (1.7-2.5); PHOSPHORUS 2.4 mg/dl (2.5-4.9)
[2017-03-31 08:00] VITALS: BP 120/84; RESP 16
[2017-03-31] MEDS: SUCRALFATE 1 GM TAB PO SCH ×2 (08:20→21:19)
[2017-03-31] MEDS: AMLODIPINE 5 MG TAB PO SCH (08:21)
[2017-03-31] MEDS: LEVETIRACETAM 500 MG TAB PO SCH ×2 (08:21→21:19)
--- NOTE | 2017-03-31 11:11 | PN ---
RUT MADRIGAL 03/31/17 1111: Date/Time of Note Date/Time of Note DATE: 03/31/17 TIME: 11:05 Assessment/Plan VTE Prophylaxis VTE Prophylaxis Intervention: ambulation Lines/Catheters IV C[facility]ter Type (from [facility]): Peripheral IV Urinary Cath still in place: No Assessment/Plan Chief Complaint/Hosp Course 1. Abdominal pain possible due to acute pancreatitis with a presumed pseudocyst. CT scan showed a pseudocyst in the pancreatic tail there is increase in size compared to the prior exam. 2. Constipation 3. Anemia 4. Hs migraine 5. Hx alcohol abuse 6. Hx elevated LFTs 7. Thrombocytopenia 8. Depression, mild 9. cellulitis and folliculitis at the mons pubis Problems: Assessment/Plan 1. Keep IV fluids 2. NPO 3. continue a.b for Barth[place] cyst Subjective 24 Hr Interval Summary Constitutional: improved, no complaints Gastrointestinal: pain Exam/Review of Systems Vital Signs Vitals Vital Signs Date Time Temp Pulse Resp B/P Pulse Ox O2 Delivery O2 Flow Rate FiO2 03/31/17 08:00 97.6 64 16 120/84 95 03/27/17 22:58 Room Air Intake and Output 03/30/17 03/30/17 03/31/17 15:00 23:00 07:00 Intake Total 1000 ml 1580 ml 2370 ml Balance 1000 ml 1580 ml 2370 ml Exam Constitutional: alert, oriented Gastrointestinal: soft Genitourinary - Female: other (decreased redness) Results Result Diagram: 03/31/17 0503 03/31/17 0503 Results 24 hrs Laboratory Tests Test 03/31/17 05:03 White Blood Count 3.7 L Red Blood Count 3.03 L Hemoglobin 8.7 L Hematocrit 29.8 L Mean Corpuscular Volume 98.3 Mean Corpuscular Hemoglobin 28.7 L Mean Corpuscular Hemoglobin Concent 29.2 L Red Cell Distribution Width 18.0 H Platelet Count 110 L Mean Platelet Volume 10.9 H Neutrophils % 64.1 Lymphocytes % 24.8 Monocytes % 7.5 Eosinophils % 3.0 Basophils % 0.3 Nucleated Red Blood Cells % 0.0 Neutrophils # 2.4 Lymphocytes # 0.9 Monocytes # 0.3 Eosinophils # 0.1 Basophils # 0.0 Nucleated Red Blood Cells # 0.0 Sodium Level 145 H Potassium Level 3.5 Chloride Level 116 H Carbon Dioxide Level 24 Anion Gap 9 Blood Urea Nitrogen 2 L Creatinine 0.54 Glucose Level 86 Calcium Level 7.9 L Phosphorus Level 2.4 L Magnesium Level 1.8 Total Bilirubin 0.2 Direct Bilirubin 0.00 Indirect Bilirubin 0.2 Aspartate Amino Transf (AST/SGOT) 24 Alanine Aminotransferase (ALT/SGPT) 24 Alkaline Phosphatase 78 Total Protein 5.1 L Albumin 2.3 L Globulin 2.80 Albumin/Globulin Ratio 0.82 Medications Medications Current Medications Sodium Chloride (NS) 1,000 ml @ 70 mls/hr [id number] IV Last administered on 20:13; Admin Dose 70 MLS/HR; Start 03/28/17 at 03:00 Hydromorphone HCl (Dilaudid) 1 mg Q4H PRN IV PAIN; Start 03/28/17 at 03:00 Morphine Sulfate (morphine) 2 mg Q3 PRN IV PAIN Last administered on 08:21; Admin Dose 2 MG; Start 03/28/17 at 03:00 Ondansetron HCl (Zofran Inj) 4 mg Q4H PRN IV NAUSEA AND/OR VOMITING Last administered on 03/30/17 22:00; Admin Dose 4 MG; Start 03/28/17 at 03:00 Amlodipine Besylate (Norvasc) 5 mg DAILY PO Last administered on 03/31/17 08: 21; Admin Dose 5 MG; Start 03/28/17 at 09:00 Levetiracetam (Keppra) 500 mg BID PO Last administered on 03/31/17 08:21; Admin Dose 500 MG; Start 03/28/17 at 09:00 [place] Carbonate ([place] Carbonate) 300 mg QHS PO Last administered on 21:00; Admin Dose 300 MG; Start 03/28/17 at 21:00 Paroxetine HCl (Paxil) 40 mg HS PO Last administered on 03/30/17 22:50; Admin Dose 40 MG; Start 03/28/17 at 21:00 Sucralfate (Carafate) 1 gm BID PO Last administered on 03/31/17 08:20; Admin Dose 1 GM; Start 03/28/17 at 09:00 Topiramate (Topamax) 50 mg QHS PO Last administered on 03/30/17 22:51; Admin Dose 50 MG; Start 03/28/17 at 21:00 Tramadol HCl (Ultram) 50 mg BID PRN PO PAIN; Start 03/28/17 at 08:00 Zolpidem Tartrate (Ambien) 10 mg QHS PO Last administered on 03/30/17 23:11; Admin Dose 10 MG; Start 03/28/17 at 21:00 Bisacodyl (Dulcolax Supp) 10 mg DAILY PRN [place] CONSTIPATION Last administered on 03/28/17 12:06; Admin Dose 10 MG; Start 03/28/17 at 11:30 Cephalexin (Keflex) 500 mg Q6 PO Last administered on 03/31/17 05:20; Admin Dose 500 MG; Start 03/29/17 at 18:00 Pantoprazole (Protonix Tab) 40 mg DAILY@06 PO Last administered on 03/31/17 05:20; Admin Dose 40 MG; Start 03/31/17 at 06:00 LAEX DE LEÓN MD 03/31/17 1520: Assessment/Plan Assessment/Plan Assessment/Plan Full liquid diet Mrcp TMW Exam/Review of Systems Results Result Diagram: 03/31/17 0503 03/31/17 0503 RUT MADRIGAL Mar 31, 2017 11:11 ALEX DE LEÓN MD Mar 31, 2017 15:20
[2017-03-31] MEDS: DEXTROSE 5% 1,000 ML IV SCH (11:28)
[2017-03-31] MEDS ORDERED: POTASSIUM PHOSPHATE 15 MM in SOD CHLORIDE 0.9% 250 ML IVPB ONE (11:50)
--- NOTE | 2017-03-31 13:20 | CONS ---
Date/Time of Note Date/Time of Note DATE: 03/31/17 TIME: 13:18 Assessment/Plan Assessment/Plan Additional Assessment/Plan IMPRESSION: 1. Acute pancreatitis. 2. Pseudocyst. 3. Constipation. 4. History of migraine. 5. History of alcohol abuse. 6. Mild thrombocytopenia. 7. Depression. PLAN: At this point, is on a clear liquid diet. Continue n.p.o., pain management, IV hydration. Amitiza for her constipation. The pseudocyst should dissolve on its own with a period of time and this pseudocyst is not large enough to be drained. Advance to full liquid diet Continue antibiotics as per [employer]CHNICIAN MRCP to find out whether the pancreatic duct is in communication with a pseudocyst. Also evaluate bile duct which was dilated 7 months ago. If pancreatic duct is in communication with the cyst then again placed pancreatic stent Consultation Date/Type/Reason Admit Date/Time Mar 27, 2017 at 22:00 24 HR Interval Summary Free Text/Dictation Patient complains of abdominal pain. She is worried about pancreatic cyst Exam/Review of Systems Vital Signs Vitals Vital Signs Date Time Temp Pulse Resp B/P Pulse Ox O2 Delivery O2 Flow Rate FiO2 03/31/17 08:00 97.6 64 16 120/84 95 03/27/17 22:58 Room Air Intake and Output 03/30/17 03/30/17 03/31/17 15:00 23:00 07:00 Intake Total 1000 ml 1580 ml 2370 ml Balance 1000 ml 1580 ml 2370 ml Exam Constitutional: alert, oriented, well developed Psych: nl mood/affect, no complaints Head: atraumatic, normocephalic Eyes: EOMI, PERRL, nl conjunctiva, nl lids, nl sclera ENMT: nl external ears & nose, nl lips & teeth, nl nasal mucosa & septum Neck: non-tender, supple Respiratory: clear to auscultation, normal air movement Cardiovascular: nl pulses, regular rate and rhythm Gastrointestinal: nl liver, spleen, non-tender, soft Musculoskeletal: nl extremities to inspection, nl gait and stance Extremities: normal pulses Neurological: FUSE COILER II-XII intact, nl mental status, nl speech, nl strength Skin: nl turgor, No rash or lesions Lymph: nl lymph nodes Results Result Diagram: 03/31/17 0503 03/31/17 0503 Results 24 hrs Laboratory Tests Test 03/31/17 05:03 White Blood Count 3.7 L Red Blood Count 3.03 L Hemoglobin 8.7 L Hematocrit 29.8 L Mean Corpuscular Volume 98.3 Mean Corpuscular Hemoglobin 28.7 L Mean Corpuscular Hemoglobin Concent 29.2 L Red Cell Distribution Width 18.0 H Platelet Count 110 L Mean Platelet Volume 10.9 H Neutrophils % 64.1 Lymphocytes % 24.8 Monocytes % 7.5 Eosinophils % 3.0 Basophils % 0.3 Nucleated Red Blood Cells % 0.0 Neutrophils # 2.4 Lymphocytes # 0.9 Monocytes # 0.3 Eosinophils # 0.1 Basophils # 0.0 Nucleated Red Blood Cells # 0.0 Sodium Level 145 H Potassium Level 3.5 Chloride Level 116 H Carbon Dioxide Level 24 Anion Gap 9 Blood Urea Nitrogen 2 L Creatinine 0.54 Glucose Level 86 Calcium Level 7.9 L Phosphorus Level 2.4 L Magnesium Level 1.8 Total Bilirubin 0.2 Direct Bilirubin 0.00 Indirect Bilirubin 0.2 Aspartate Amino Transf (AST/SGOT) 24 Alanine Aminotransferase (ALT/SGPT) 24 Alkaline Phosphatase 78 Total Protein 5.1 L Albumin 2.3 L Globulin 2.80 Albumin/Globulin Ratio 0.82 Medications Medications Current Medications Hydromorphone HCl (Dilaudid) 1 mg Q4H PRN IV PAIN; Start 03/28/17 at 03:00 Morphine Sulfate (morphine) 2 mg Q3 PRN IV PAIN Last administered on 12:08; Admin Dose 2 MG; Start 03/28/17 at 03:00 Ondansetron HCl (Zofran Inj) 4 mg Q4H PRN IV NAUSEA AND/OR VOMITING Last administered on 03/30/17 22:00; Admin Dose 4 MG; Start 03/28/17 at 03:00 Amlodipine Besylate (Norvasc) 5 mg DAILY PO Last administered on 03/31/17 08: 21; Admin Dose 5 MG; Start 03/28/17 at 09:00 Levetiracetam (Keppra) 500 mg BID PO Last administered on 03/31/17 08:21; Admin Dose 500 MG; Start 03/28/17 at 09:00 [place] Carbonate ([place] Carbonate) 300 mg QHS PO Last administered on 21:00; Admin Dose 300 MG; Start 03/28/17 at 21:00 Paroxetine HCl (Paxil) 40 mg HS PO Last administered on 03/30/17 22:50; Admin Dose 40 MG; Start 03/28/17 at 21:00 Sucralfate (Carafate) 1 gm BID PO Last administered on 03/31/17 08:20; Admin Dose 1 GM; Start 03/28/17 at 09:00 Topiramate (Topamax) 50 mg QHS PO Last administered on 03/30/17 22:51; Admin Dose 50 MG; Start 03/28/17 at 21:00 Tramadol HCl (Ultram) 50 mg BID PRN PO PAIN; Start 03/28/17 at 08:00 Zolpidem Tartrate (Ambien) 10 mg QHS PO Last administered on 03/30/17 23:11; Admin Dose 10 MG; Start 03/28/17 at 21:00 Bisacodyl (Dulcolax Supp) 10 mg DAILY PRN [place] CONSTIPATION Last administered on 03/28/17 12:06; Admin Dose 10 MG; Start 03/28/17 at 11:30 Cephalexin (Keflex) 500 mg Q6 PO Last administered on 03/31/17 11:28; Admin Dose 500 MG; Start 03/29/17 at 18:00 Pantoprazole 40 mg 40 mg DAILY@06 PO Last administered on 03/31/17 05:20; Admin Dose 40 MG; Start 03/31/17 at 06:00 Dextrose 1,000 ml @ 50 mls/hr Q20H IV Last administered on 03/31/17 11:28; Admin Dose 50 MLS/HR; Start 03/31/17 at 11:30 Potassium Phosphate/Sodium Chloride (K Phos (Mm)/NS) 255 ml @ 63.75 mls/ hr ONCE ONCE IVPB Last administered on 03/31/17 12:08; Admin Dose 63.75 MLS/HR ; Start 03/31/17 at 11:50; Stop 03/31/17 at 15:49 HELIO DUNBAR MD Mar 31, 2017 13:19
[2017-03-31 14:00] VITALS: BP 118/82; RESP 18
[2017-03-31] MEDS: ONDANSETRON 4 MG INJ IV PRN ×2 (15:48→19:50)
--- NOTE | 2017-03-31 16:02 | RADRPT ---
PROCEDURE: MRCP. CLINICAL INDICATION: Pancreatic cyst, upper abdominal pain. TECHNIQUE: MRCP was performed. Patient was examined without contrast. 3-D coronal rotating MIP i mages of the biliary tree are available for review. DICOM images are available. COMPARISON: CT, 03/27/2017 FINDINGS: The gallbladder is distended. No gallstone or wall thickening or pericholecystic fluid is identified . There is nonspecific prominence of the common bile duct, measuring 11 mm in maximal diameter, with smooth tapering to the level of the ampulla. No evidence of common duct stone, stricture or filling defect is identified. There is no intrahepatic biliary dilatation. Pancreatic duct is normal in addy iber. There are mild bilateral pleural effusions. Liver is normal in size and signal intensity, without ev idence of focal lesion. Pancreas is mildly atrophic. There is question of minimal peripancreatic tadeo ma, possibly indicating mild acute pancreatitis. 3.7 cm cystic structure is seen associated with richardson creatic tail (4-23), demonstrate areas of susceptibility artifact in the cyst periphery. Spleen, adr enal glands and kidneys are unremarkable. There is no obstructive uropathy. The stomach is partially collapsed, but appears grossly unremarkable. Abdominal aorta is normal in caliber. No retroperitoneal or jc hepatis lymphadenopathy is identif ied. Small amount of ascites is present. No bowel obstruction or abscess is identified. The surround ing osseous structures are remarkable for degenerative enthesopathy of the spine. No focal osseous l esion is seen. IMPRESSION: 1. Possible mild acute pancreatitis, as above. 2. Nonspecific 3.7 cm cystic structure is seen associated with pancreatic tail, demonstrating areas of peripheral susceptibility artifact, possibly sequelae of prior hemorrhage. Given findings of pro bable pancreatitis, this most likely represents a pseudocyst. Continued follow-up is recommended to assess interval stability. 3. No cholelithiasis or cholecystitis identified. 4. There is nonspecific mild dilatation of the common bile duct, without evidence of intrahepatic b iliary dilatation or choledocholithiasis. 5. Mild bilateral pleural effusions are noted, new when compared to the prior CT. RPTAT: PP .Marco Isabel MD, MD Date Time Electronically viewed and signed by .Marco Isabel MD, on 03/31/2017 16:01 .R/
[2017-03-31 20:00] VITALS: BP 107/75; RESP 18
[2017-03-31] MEDS: LITHIUM CARBONATE 300 MG CAP PO SCH (21:19)
[2017-03-31] MEDS: ZOLPIDEM 5 MG TAB PO SCH (21:19)
[2017-03-31] MEDS: PAROXETINE 20 MG TAB PO SCH (21:20)
[2017-03-31] MEDS: TOPIRAMATE 25 MG TAB PO SCH (21:20)
[2017-04-01 02:00] VITALS: BP 132/94; RESP 20
[2017-04-01] MEDS: morphine 2 MG INJ IV PRN ×6 (02:55→20:44)
[2017-04-01] MEDS: PANTOPRAZOLE (EC) 40 MG TAB PO SCH (05:15)
[2017-04-01] MEDS: CEPHALEXIN 500 MG CAP PO SCH ×3 (05:15→17:22)
[2017-04-01 06:36] LABS: BASOPHILS % 0.6 % (0.0-2.0); EOSINOPHILS # 0.1 10^3/ul (0.0-0.5); EOSINOPHILS % 3.9 % (0.0-7.0); HEMATOCRIT 29.8 % (37.0-47.0); LYMPHOCYTES # 0.9 10^3/ul (0.8-2.9); LYMPHOCYTES % 28.3 % (15.0-51.0); MEAN CORPUSCULAR HEMOGLOBIN 29.1 pg (29.0-33.0); MEAN CORPUSCULAR HGB CONC 30.2 g/dl (32.0-37.0); MEAN CORPUSCULAR VOLUME 96.4 fl (82.0-101.0); MEAN PLATELET VOLUME 11.3 fl (7.4-10.4); MONOCYTE # 0.3 10^3/ul (0.3-0.9); NEUTROPHIL # 1.8 10^3/ul (1.6-7.5); NEUTROPHILS % 56.9 % (39.0-77.0); PLATELET COUNT 112 10^3/UL (140-415); RED BLOOD COUNT 3.09 10^6/ul (4.20-5.40); RED CELL DISTRIBUTION WIDTH 17.9 % (11.5-14.5); WHITE BLOOD COUNT 3.1 10^3/ul (4.8-10.8)
[2017-04-01] MEDS: DEXTROSE 5% 1,000 ML IV SCH ×2 (07:30→11:30)
[2017-04-01 07:51] VITALS: BP 120/79; RESP 18
[2017-04-01] MEDS: AMLODIPINE 5 MG TAB PO SCH (08:20)
[2017-04-01] MEDS: SUCRALFATE 1 GM TAB PO SCH ×2 (08:20→21:34)
[2017-04-01] MEDS: LEVETIRACETAM 500 MG TAB PO SCH ×2 (08:21→21:34)
[2017-04-01] MEDS: ONDANSETRON 4 MG INJ IV PRN (11:43)
[2017-04-01 14:52] VITALS: BP 126/86; RESP 18
--- NOTE | 2017-04-01 19:11 | CONS ---
Date/Time of Note Date/Time of Note DATE: 04/01/17 TIME: 19:10 Assessment/Plan Assessment/Plan Additional Assessment/Plan Additional Assessment/Plan IMPRESSION: 1. Acute pancreatitis. 2. Pseudocyst. 3. Constipation. 4. History of migraine. 5. History of alcohol abuse. 6. Mild thrombocytopenia. 7. Depression. PLAN: At this point, is on a clear liquid diet. Continue n.p.o., pain management, IV hydration. Amitiza for her constipation. The pseudocyst should dissolve on its own with a period of time and this pseudocyst is not large enough to be drained. Advance to full liquid diet Continue antibiotics as per IMAGING CLERK MRCP to find out whether the pancreatic duct is in communication with a pseudocyst. Also evaluate bile duct which was dilated 7 months ago. If pancreatic duct is in communication with the cyst then again placed pancreatic stent After review MRI they have not mention anything about the pancreatic duct communicating with the pseudocyst. Low-fat diet patient wants only solid food now Consultation Date/Type/Reason Admit Date/Time Mar 27, 2017 at 22:00 24 HR Interval Summary Free Text/Dictation Patient complains of left upper quadrant pain Exam/Review of Systems Vital Signs Vitals Vital Signs Date Time Temp Pulse Resp B/P Pulse Ox O2 Delivery O2 Flow Rate FiO2 04/01/17 14:52 98.0 64 18 126/86 98 Intake and Output 03/31/17 03/31/17 04/01/17 14:59 22:59 06:59 Intake Total 370 ml 2535 ml 1200 ml Balance 370 ml 2535 ml 1200 ml Exam Constitutional: alert, oriented, well developed Psych: nl mood/affect, no complaints Head: atraumatic, normocephalic Eyes: EOMI, PERRL, nl conjunctiva, nl lids, nl sclera ENMT: nl external ears & nose, nl lips & teeth, nl nasal mucosa & septum Neck: non-tender, supple Respiratory: clear to auscultation, normal air movement Cardiovascular: nl pulses, regular rate and rhythm Gastrointestinal: nl liver, spleen, non-tender, soft Musculoskeletal: nl extremities to inspection, nl gait and stance Extremities: normal pulses Neurological: 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 ASSAULTMAN II-XII intact, nl mental status, nl speech, nl strength Skin: nl turgor, No rash or lesions Lymph: nl lymph nodes Results Result Diagram: 04/01/17 0541 03/31/17 0503 Results 24 hrs Laboratory Tests Test 04/01/17 05:41 White Blood Count 3.1 L Red Blood Count 3.09 L Hemoglobin 9.0 L Hematocrit 29.8 L Mean Corpuscular Volume 96.4 Mean Corpuscular Hemoglobin 29.1 Mean Corpuscular Hemoglobin Concent 30.2 L Red Cell Distribution Width 17.9 H Platelet Count 112 L Mean Platelet Volume 11.3 H Neutrophils % 56.9 Lymphocytes % 28.3 Monocytes % 10.0 Eosinophils % 3.9 Basophils % 0.6 Nucleated Red Blood Cells % 0.0 Neutrophils # 1.8 Lymphocytes # 0.9 Monocytes # 0.3 Eosinophils # 0.1 Basophils # 0.0 Nucleated Red Blood Cells # 0.0 Medications Medications Current Medications Hydromorphone HCl (Dilaudid) 1 mg Q4H PRN IV PAIN; Start 03/28/17 at 03:00 Morphine Sulfate (morphine) 2 mg Q3 PRN IV PAIN Last administered on 16:37; Admin Dose 2 MG; Start 03/28/17 at 03:00 Ondansetron HCl (Zofran Inj) 4 mg Q4H PRN IV NAUSEA AND/OR VOMITING Last administered on 04/01/17 11:43; Admin Dose 4 MG; Start 03/28/17 at 03:00 Amlodipine Besylate (Norvasc) 5 mg DAILY PO Last administered on 04/01/17 08: 20; Admin Dose 5 MG; Start 03/28/17 at 09:00 Levetiracetam (Keppra) 500 mg BID PO Last administered on 04/01/17 08:21; Admin Dose 500 MG; Start 03/28/17 at 09:00 [place] Carbonate ([place] Carbonate) 300 mg QHS PO Last administered on 21:19; Admin Dose 300 MG; Start 03/28/17 at 21:00 Paroxetine HCl (Paxil) 40 mg HS PO Last administered on 03/31/17 21:20; Admin Dose 40 MG; Start 03/28/17 at 21:00 Sucralfate (Carafate) 1 gm BID PO Last administered on 04/01/17 08:20; Admin Dose 1 GM; Start 03/28/17 at 09:00 Topiramate (Topamax) 50 mg QHS PO Last administered on 03/31/17 21:20; Admin Dose 50 MG; Start 03/28/17 at 21:00 Tramadol HCl (Ultram) 50 mg BID PRN PO PAIN; Start 03/28/17 at 08:00 Zolpidem Tartrate (Ambien) 10 mg QHS PO Last administered on 03/31/17 21:19; Admin Dose 10 MG; Start 03/28/17 at 21:00 Bisacodyl (Dulcolax Supp) 10 mg DAILY PRN [place] CONSTIPATION Last administered on 03/28/17 12:06; Admin Dose 10 MG; Start 03/28/17 at 11:30 Cephalexin (Keflex) 500 mg Q6 PO Last administered on 04/01/17 17:22; Admin Dose 500 MG; Start 03/29/17 at 18:00 Pantoprazole 40 mg 40 mg DAILY@06 PO Last administered on 04/01/17 05:15; Admin Dose 40 MG; Start 03/31/17 at 06:00 Dextrose (D5W) 1,000 ml @ 50 mls/hr Q20H IV Last administered on 04/01/17 11 :30; Admin Dose 50 MLS/HR; Start 03/31/17 at 11:30 Nystatin (Nystatin Powder) 1 applic DAILY TOP ; Start 04/01/17 at 21:00 HELIO DUNBAR MD Apr 01, 2017 19:11
--- NOTE | 2017-04-01 19:51 | PN ---
Date/Time of Note Date/Time of Note DATE: 04/01/17 TIME: 19:49 Assessment/Plan VTE Prophylaxis VTE Prophylaxis Intervention: other Lines/Catheters IV Catheter Type (from Nrs): Peripheral IV Urinary Cath still in place: No Assessment/Plan Chief Complaint/Hosp Course 1. Abdominal pain possible due to acute pancreatitis with a presumed pseudocyst. 2. Constipation better 3. Anemia 4. Hs migraine 5. Hx alcohol abuse 6. Hx elevated LFTs 7. Thrombocytopenia 8. Depression, mild 9. cellulitis and folliculitis at the mons pubis plan per gi ck labs Problems: Subjective 24 Hr Interval Summary Respiratory: no complaints Cardiovascular: no complaints Gastrointestinal: pain (better) Exam/Review of Systems Vital Signs Vitals Vital Signs Date Time Temp Pulse Resp B/P Pulse Ox O2 Delivery O2 Flow Rate FiO2 04/01/17 14:52 98.0 64 18 126/86 98 Intake and Output 03/31/17 03/31/17 04/01/17 15:00 23:00 07:00 Intake Total 370 ml 2535 ml 1200 ml Balance 370 ml 2535 ml 1200 ml Exam Respiratory: clear to auscultation Cardiovascular: regular rate and rhythm Gastrointestinal: bowel sounds (+), soft Musculoskeletal: nl extremities to inspection Extremities: normal pulses Results Result Diagram: 04/01/17 0541 03/31/17 0503 Results 24 hrs Laboratory Tests Test 04/01/17 05:41 White Blood Count 3.1 L Red Blood Count 3.09 L Hemoglobin 9.0 L Hematocrit 29.8 L Mean Corpuscular Volume 96.4 Mean Corpuscular Hemoglobin 29.1 Mean Corpuscular Hemoglobin Concent 30.2 L Red Cell Distribution Width 17.9 H Platelet Count 112 L Mean Platelet Volume 11.3 H Neutrophils % 56.9 Lymphocytes % 28.3 Monocytes % 10.0 Eosinophils % 3.9 Basophils % 0.6 Nucleated Red Blood Cells % 0.0 Neutrophils # 1.8 Lymphocytes # 0.9 Monocytes # 0.3 Eosinophils # 0.1 Basophils # 0.0 Nucleated Red Blood Cells # 0.0 Medications Medications Current Medications Hydromorphone HCl (Dilaudid) 1 mg Q4H PRN IV PAIN; Start 03/28/17 at 03:00 Morphine Sulfate (morphine) 2 mg Q3 PRN IV PAIN Last administered on t 16:37; Admin Dose 2 MG; Start 03/28/17 at 03:00 Ondansetron HCl (Zofran Inj) 4 mg Q4H PRN IV NAUSEA AND/OR VOMITING Last administered on 04/01/17 11:43; Admin Dose 4 MG; Start 03/28/17 at 03:00 Amlodipine Besylate (Norvasc) 5 mg DAILY PO Last administered on 04/01/17 08: 20; Admin Dose 5 MG; Start 03/28/17 at 09:00 Levetiracetam (Keppra) 500 mg BID PO Last administered on 04/01/17 08:21; Admin Dose 500 MG; Start 03/28/17 at 09:00 [place] Carbonate ([place] Carbonate) 300 mg QHS PO Last administered on 21:19; Admin Dose 300 MG; Start 03/28/17 at 21:00 Paroxetine HCl (Paxil) 40 mg HS PO Last administered on 03/31/17 21:20; Admin Dose 40 MG; Start 03/28/17 at 21:00 Sucralfate (Carafate) 1 gm BID PO Last administered on 04/01/17 08:20; Admin Dose 1 GM; Start 03/28/17 at 09:00 Topiramate (Topamax) 50 mg QHS PO Last administered on 03/31/17 21:20; Admin Dose 50 MG; Start 03/28/17 at 21:00 Tramadol HCl (Ultram) 50 mg BID PRN PO PAIN; Start 03/28/17 at 08:00 Zolpidem Tartrate (Ambien) 10 mg QHS PO Last administered on 03/31/17 21:19; Admin Dose 10 MG; Start 03/28/17 at 21:00 Bisacodyl (Dulcolax Supp) 10 mg DAILY PRN [place] CONSTIPATION Last administered on 03/28/17 12:06; Admin Dose 10 MG; Start 03/28/17 at 11:30 Cephalexin (Keflex) 500 mg Q6 PO Last administered on 04/01/17 17:22; Admin Dose 500 MG; Start 03/29/17 at 18:00 Pantoprazole 40 mg 40 mg DAILY@06 PO Last administered on 04/01/17 05:15; Admin Dose 40 MG; Start 03/31/17 at 06:00 Dextrose (D5W) 1,000 ml @ 50 mls/hr Q20H IV Last administered on 04/01/17t 11 :30; Admin Dose 50 MLS/HR; Start 03/31/17 at 11:30 Nystatin (Nystatin Powder) 1 applic DAILY TOP ; Start 04/01/17 at 21:00 YASMANI LUND MD Apr 01, 2017 19:51
[2017-04-01 20:09] VITALS: BP 100/66; RESP 20
[2017-04-01] MEDS: TOPIRAMATE 25 MG TAB PO SCH (21:33)
[2017-04-01] MEDS: PAROXETINE 20 MG TAB PO SCH (21:33)
[2017-04-01] MEDS: ZOLPIDEM 5 MG TAB PO SCH (21:34)
[2017-04-01] MEDS: LITHIUM CARBONATE 300 MG CAP PO SCH (21:34)
[2017-04-01] MEDS: NYSTATIN 30 GM POWDER BTL TOP SCH (21:35)
[2017-04-02] MEDS: CEPHALEXIN 500 MG CAP PO SCH ×5 (00:08→23:29)
[2017-04-02] MEDS: morphine 2 MG INJ IV PRN ×7 (00:11→22:40)
[2017-04-02 02:35] VITALS: BP 119/89; RESP 20
[2017-04-02] MEDS: ONDANSETRON 4 MG INJ IV PRN ×3 (02:36→18:49)
[2017-04-02] MEDS: PANTOPRAZOLE (EC) 40 MG TAB PO SCH (05:44)
[2017-04-02 05:47] LABS: BASOPHILS % 1.1 % (0.0-2.0); EOSINOPHILS # 0.1 10^3/ul (0.0-0.5); EOSINOPHILS % 4.3 % (0.0-7.0); HEMATOCRIT 34.1 % (37.0-47.0); HEMOGLOBIN 10.3 g/dl (12.0-16.0); LYMPHOCYTES # 0.9 10^3/ul (0.8-2.9); LYMPHOCYTES % 31.8 % (15.0-51.0); MEAN CORPUSCULAR HEMOGLOBIN 29.3 pg (29.0-33.0); MEAN CORPUSCULAR HGB CONC 30.2 g/dl (32.0-37.0); MEAN CORPUSCULAR VOLUME 97.2 fl (82.0-101.0); MEAN PLATELET VOLUME 12.2 fl (7.4-10.4); MONOCYTE # 0.4 10^3/ul (0.3-0.9); MONOCYTES % 12.6 % (0.0-11.0); NEUTROPHIL # 1.4 10^3/ul (1.6-7.5); NEUTROPHILS % 49.8 % (39.0-77.0); PLATELET COUNT 150 10^3/UL (140-415); RED BLOOD COUNT 3.51 10^6/ul (4.20-5.40); RED CELL DISTRIBUTION WIDTH 17.6 % (11.5-14.5); WHITE BLOOD COUNT 2.8 10^3/ul (4.8-10.8)
[2017-04-02 06:29] LABS: ALBUMIN 2.7 g/dl (3.3-4.9); ALBUMIN/GLOBULIN RATIO 0.84; BILIRUBIN,INDIRECT 0.3 mg/dl (0-1.1); BILIRUBIN,TOTAL 0.3 mg/dl (0.2-1.3); CALCIUM 8.6 mg/dl (8.4-10.2); CREATININE 0.56 mg/dl (0.44-1.00); PHOSPHORUS 2.8 mg/dl (2.5-4.9); POTASSIUM 3.6 mmol/L (3.5-5.1); TOTAL PROTEIN 5.9 g/dl (6.1-8.1)
[2017-04-02] MEDS: NYSTATIN 30 GM POWDER BTL TOP SCH (08:00)
[2017-04-02] MEDS: AMLODIPINE 5 MG TAB PO SCH (08:00)
[2017-04-02] MEDS: LEVETIRACETAM 500 MG TAB PO SCH ×2 (08:00→20:14)
[2017-04-02] MEDS: SUCRALFATE 1 GM TAB PO SCH ×2 (08:00→20:15)
[2017-04-02] MEDS: DEXTROSE 5% 1,000 ML IV SCH (08:01)
[2017-04-02 08:06] VITALS: BP 133/87; RESP 16
[2017-04-02 14:51] VITALS: BP 117/84; RESP 20
--- NOTE | 2017-04-02 18:55 | CONS ---
Date/Time of Note Date/Time of Note DATE: 04/02/17 TIME: 18:55 Assessment/Plan Assessment/Plan Additional Assessment/Plan IMPRESSION: 1. Acute pancreatitis. 2. Pseudocyst. 3. Constipation. 4. History of migraine. 5. History of alcohol abuse. 6. Mild thrombocytopenia. 7. Depression. PLAN: At this point, is on a clear liquid diet. Continue n.p.o., pain management, IV hydration. Amitiza for her constipation. The pseudocyst should dissolve on its own with a period of time and this pseudocyst is not large enough to be drained. Advance to full liquid diet Continue antibiotics as per [employer] MRCP to find out whether the pancreatic duct is in communication with a pseudocyst. Also evaluate bile duct which was dilated 7 months ago. If pancreatic duct is in communication with the cyst then again placed pancreatic stent After review MRI they have not mention anything about the pancreatic duct communicating with the pseudocyst. Low-fat diet patient wants only solid food now Consultation Date/Type/Reason Admit Date/Time Mar 27, 2017 at 22:00 24 HR Interval Summary Free Text/Dictation Abdominal pain confined to the left upper quadrant Exam/Review of Systems Vital Signs Vitals Vital Signs Date Time Temp Pulse Resp B/P Pulse Ox O2 Delivery O2 Flow Rate FiO2 04/02/17 14:51 98.0 59 20 117/84 97 Intake and Output 04/01/17 04/01/17 04/02/17 14:59 22:59 06:59 Intake Total 120 ml 800 ml 1200 ml Output Total 400 ml Balance 120 ml 800 ml 800 ml Exam Respiratory: clear to auscultation, normal air movement Cardiovascular: nl pulses, regular rate and rhythm Gastrointestinal: nl liver, spleen, non-tender, soft Musculoskeletal: nl extremities to inspection, nl gait and stance Extremities: normal pulses Results Result Diagram: 04/02/17 0507 04/02/17 0507 Results 24 hrs Laboratory Tests Test 04/02/17 05:07 White Blood Count 2.8 L Red Blood Count 3.51 L Hemoglobin 10.3 L Hematocrit 34.1 L Mean Corpuscular Volume 97.2 Mean Corpuscular Hemoglobin 29.3 Mean Corpuscular Hemoglobin Concent 30.2 L Red Cell Distribution Width 17.6 H Platelet Count 150 # Mean Platelet Volume 12.2 H Neutrophils % 49.8 Lymphocytes % 31.8 Monocytes % 12.6 H Eosinophils % 4.3 Basophils % 1.1 Nucleated Red Blood Cells % 0.0 Neutrophils # 1.4 L Lymphocytes # 0.9 Monocytes # 0.4 Eosinophils # 0.1 Basophils # 0.0 Nucleated Red Blood Cells # 0.0 Sodium Level 143 Potassium Level 3.6 Chloride Level 113 H Carbon Dioxide Level 23 Anion Gap 11 Blood Urea Nitrogen 2 L Creatinine 0.56 Glucose Level 102 Calcium Level 8.6 Phosphorus Level 2.8 Total Bilirubin 0.3 Direct Bilirubin 0.00 Indirect Bilirubin 0.3 Aspartate Amino Transf (AST/SGOT) 33 Alanine Aminotransferase (ALT/SGPT) 22 Alkaline Phosphatase 80 Total Protein 5.9 L Albumin 2.7 L Globulin 3.20 Albumin/Globulin Ratio 0.84 Lipase 24 Medications Medications Current Medications Hydromorphone HCl (Dilaudid) 1 mg Q4H PRN IV PAIN; Start 03/28/17 at 03:00 Morphine Sulfate (morphine) 2 mg Q3 PRN IV PAIN Last administered on 18:49; Admin Dose 2 MG; Start 03/28/17 at 03:00 Ondansetron HCl (Zofran Inj) 4 mg Q4H PRN IV NAUSEA AND/OR VOMITING Last administered on 04/02/17 18:49; Admin Dose 4 MG; Start 03/28/17 at 03:00 Amlodipine Besylate (Norvasc) 5 mg DAILY PO Last administered on 04/02/17 08: 00; Admin Dose 5 MG; Start 03/28/17 at 09:00 Levetiracetam (Keppra) 500 mg BID PO Last administered on 04/02/17 08:00; Admin Dose 500 MG; Start 03/28/17 at 09:00 [place] Carbonate ([place] Carbonate) 300 mg QHS PO Last administered on 21:34; Admin Dose 300 MG; Start 03/28/17 at 21:00 Paroxetine HCl (Paxil) 40 mg HS PO Last administered on 04/01/17 21:33; Admin Dose 40 MG; Start 03/28/17 at 21:00 Sucralfate (Carafate) 1 gm BID PO Last administered on 04/02/17 08:00; Admin Dose 1 GM; Start 03/28/17 at 09:00 Topiramate (Topamax) 50 mg QHS PO Last administered on 04/01/17 21:33; Admin Dose 50 MG; Start 03/28/17 at 21:00 Tramadol HCl (Ultram) 50 mg BID PRN PO PAIN; Start 03/28/17 at 08:00 Zolpidem Tartrate (Ambien) 10 mg QHS PO Last administered on 04/01/17 21:34; Admin Dose 10 MG; Start 03/28/17 at 21:00 Bisacodyl (Dulcolax Supp) 10 mg DAILY PRN [place] CONSTIPATION Last administered on 03/28/17 12:06; Admin Dose 10 MG; Start 03/28/17 at 11:30 Cephalexin (Keflex) 500 mg Q6 PO Last administered on 04/02/17 17:33; Admin Dose 500 MG; Start 03/29/17 at 18:00 Pantoprazole 40 mg 40 mg DAILY@06 PO Last administered on 04/02/17 05:44; Admin Dose 40 MG; Start 03/31/17 at 06:00 Dextrose (D5W) 1,000 ml @ 50 mls/hr Q20H IV Last administered on 04/02/17 08 :01; Admin Dose 50 MLS/HR; Start 03/31/17 at 11:30 Nystatin (Nystatin Powder) 1 applic DAILY TOP Last administered on 04/02/17 08:00; Admin Dose 1 APPLIC; Start 04/01/17 at 21:00 HELIO DUNBAR MD Apr 02, 2017 18:55
--- NOTE | 2017-04-02 19:23 | PN ---
Date/Time of Note Date/Time of Note DATE: 04/02/17 TIME: 19:20 Assessment/Plan VTE Prophylaxis VTE Prophylaxis Intervention: other Lines/Catheters IV [facility] Type [facility] Peripheral IV Urinary Cath still in place: No Assessment/Plan Chief Complaint/Hosp Course 1. Abdominal pain possible due to acute pancreatitis with a presumed pseudocyst. 2. Constipation better 3. Anemia 4. Hs migraine 5. Hx alcohol abuse 6. Hx elevated LFTs 7. Thrombocytopenia BETTER 8. Depression, mild 9. cellulitis and folliculitis at the mons pubis 10 PANCYTOPENIA BETTER plan per gi ANTIBIOTICS Problems: Subjective 24 Hr Interval Summary Cardiovascular: no complaints Gastrointestinal: no complaints, pain (BETTER) Exam/Review of Systems Vital Signs Vitals Vital Signs Date Time Temp Pulse Resp B/P Pulse Ox O2 Delivery O2 Flow Rate FiO2 04/02/17 14:51 98.0 59 20 117/84 97 Intake and Output 04/01/17 04/01/17 04/02/17 14:59 22:59 06:59 Intake Total 120 ml 800 ml 1200 ml Output Total 400 ml Balance 120 ml 800 ml 800 ml Exam Neck: supple Respiratory: clear to auscultation Cardiovascular: regular rate and rhythm Gastrointestinal: bowel sounds (+), soft, tender (MILD+) Extremities: No edema Results Result Diagram: 04/02/17 0507 04/02/17 0507 Results 24 hrs Laboratory Tests Test 04/02/17 05:07 White Blood Count 2.8 L Red Blood Count 3.51 L Hemoglobin 10.3 L Hematocrit 34.1 L Mean Corpuscular Volume 97.2 Mean Corpuscular Hemoglobin 29.3 Mean Corpuscular Hemoglobin Concent 30.2 L Red Cell Distribution Width 17.6 H Platelet Count 150 # Mean Platelet Volume 12.2 H Neutrophils % 49.8 Lymphocytes % 31.8 Monocytes % 12.6 H Eosinophils % 4.3 Basophils % 1.1 Nucleated Red Blood Cells % 0.0 Neutrophils # 1.4 L Lymphocytes # 0.9 Monocytes # 0.4 Eosinophils # 0.1 Basophils # 0.0 Nucleated Red Blood Cells # 0.0 Sodium Level 143 Potassium Level 3.6 Chloride Level 113 H Carbon Dioxide Level 23 Anion Gap 11 Blood Urea Nitrogen 2 L Creatinine 0.56 Glucose Level 102 Calcium Level 8.6 Phosphorus Level 2.8 Total Bilirubin 0.3 Direct Bilirubin 0.00 Indirect Bilirubin 0.3 Aspartate Amino Transf (AST/SGOT) 33 Alanine Aminotransferase (ALT/SGPT) 22 Alkaline Phosphatase 80 Total Protein 5.9 L Albumin 2.7 L Globulin 3.20 Albumin/Globulin Ratio 0.84 Lipase 24 Medications Medications Current Medications Hydromorphone HCl (Dilaudid) 1 mg Q4H PRN IV PAIN; Start 03/28/17 at 03:00 Morphine Sulfate (morphine) 2 mg Q3 PRN IV PAIN Last administered on 18:49; Admin Dose 2 MG; Start 03/28/17 at 03:00 Ondansetron HCl (Zofran Inj) 4 mg Q4H PRN IV NAUSEA AND/OR VOMITING Last administered on 04/02/17 18:49; Admin Dose 4 MG; Start 03/28/17 at 03:00 Amlodipine Besylate (Norvasc) 5 mg DAILY PO Last administered on 04/02/17 08: 00; Admin Dose 5 MG; Start 03/28/17 at 09:00 Levetiracetam (Keppra) 500 mg BID PO Last administered on 04/02/17 08:00; Admin Dose 500 MG; Start 03/28/17 at 09:00 [place] Carbonate ([place] Carbonate) 300 mg QHS PO Last administered on 21:34; Admin Dose 300 MG; Start 03/28/17 at 21:00 Paroxetine HCl (Paxil) 40 mg HS PO Last administered on 04/01/17 21:33; Admin Dose 40 MG; Start 03/28/17 at 21:00 Sucralfate (Carafate) 1 gm BID PO Last administered on 04/02/17 08:00; Admin Dose 1 GM; Start 03/28/17 at 09:00 Topiramate (Topamax) 50 mg QHS PO Last administered on 04/01/17 21:33; Admin Dose 50 MG; Start 03/28/17 at 21:00 Tramadol HCl (Ultram) 50 mg BID PRN PO PAIN; Start 03/28/17 at 08:00 Zolpidem Tartrate (Ambien) 10 mg QHS PO Last administered on 04/01/17 21:34; Admin Dose 10 MG; Start 03/28/17 at 21:00 Bisacodyl (Dulcolax Supp) 10 mg DAILY PRN [place] CONSTIPATION Last administered on 03/28/17 12:06; Admin Dose 10 MG; Start 03/28/17 at 11:30 Cephalexin (Keflex) 500 mg Q6 PO Last administered on 04/02/17 17:33; Admin Dose 500 MG; Start 03/29/17 at 18:00 Pantoprazole 40 mg 40 mg DAILY@06 PO Last administered on 04/02/17 05:44; Admin Dose 40 MG; Start 03/31/17 at 06:00 Dextrose (D5W) 1,000 ml @ 50 mls/hr Q20H IV Last administered on 04/02/17 08 :01; Admin Dose 50 MLS/HR; Start 03/31/17 at 11:30 Nystatin (Nystatin Powder) 1 applic DAILY TOP Last administered on 04/02/17 08:00; Admin Dose 1 APPLIC; Start 04/01/17 at 21:00 YASMANI LUND MD Apr 02, 2017 19:23
[2017-04-02] MEDS: PAROXETINE 20 MG TAB PO SCH (20:14)
[2017-04-02] MEDS: LITHIUM CARBONATE 300 MG CAP PO SCH (20:14)
[2017-04-02] MEDS: TOPIRAMATE 25 MG TAB PO SCH (20:15)
[2017-04-02 20:52] VITALS: BP 113/76; RESP 18
[2017-04-02] MEDS: ZOLPIDEM 5 MG TAB PO SCH (21:45)
[2017-04-03] MEDS: morphine 2 MG INJ IV PRN ×3 (01:49→13:01)
[2017-04-03 02:00] VITALS: BP 111/77; RESP 17
[2017-04-03] MEDS: DEXTROSE 5% 1,000 ML IV SCH (04:14)
[2017-04-03] MEDS: CEPHALEXIN 500 MG CAP PO SCH ×3 (05:19→18:18)
[2017-04-03] MEDS: PANTOPRAZOLE (EC) 40 MG TAB PO SCH (05:19)
[2017-04-03 08:15] VITALS: BP 108/69; RESP 18
[2017-04-03] MEDS: ONDANSETRON 4 MG INJ IV PRN (08:35)
[2017-04-03] MEDS: HYDROmorphONE 1 MG/ML SYG IV PRN ×2 (08:35→16:58)
[2017-04-03] MEDS: SUCRALFATE 1 GM TAB PO SCH (08:37)
[2017-04-03] MEDS: LEVETIRACETAM 500 MG TAB PO SCH (08:38)
[2017-04-03] MEDS: AMLODIPINE 5 MG TAB PO SCH (08:38)
[2017-04-03] MEDS: NYSTATIN 30 GM POWDER BTL TOP SCH (08:41)
--- NOTE | 2017-04-03 12:46 | PDOCDIS ---
Discharge Instructions CONDITION Patient Condition: Stable HOME CARE INSTRUCTIONS: Diet Instructions: Low Fat /Cholesterol ACTIVITY: Activity Restrictions: Slowly Increase Activity FOLLOW UP/APPOINTMENTS Follow-up Plan f/u own pcp [address] andrew 2 wks YASMANI LUND MD Apr 03, 2017 12:46
[2017-04-03] MEDS ORDERED: ONDA-43 PO (12:51)
[2017-04-03] MEDS ORDERED: TRAM50TA2 PO (12:51)
[2017-04-03] MEDS ORDERED: PANT40TA4 PO (12:51)
[2017-04-03] MEDS ORDERED: NYST15PO4 TOP (12:51)
[2017-04-03] MEDS ORDERED: SUCR1TAB27 PO (12:51)
[2017-04-03] MEDS ORDERED: BISA10SU75 PR (12:51)
[2017-04-03] MEDS ORDERED: CEPH500C PO (12:51)
--- NOTE | 2017-04-03 18:30 | PN ---
Date/Time of Note Date/Time of Note DATE: 04/03/17 TIME: 18:29 Assessment/Plan VTE Prophylaxis VTE Prophylaxis Intervention: other Lines/Catheters [facility] [place] Urinary Cath still in place: No Assessment/Plan Chief Complaint/Hosp Course 1. Abdominal pain possible due to acute pancreatitis with a presumed pseudocyst. 2. Constipation better 3. Anemia 4. Hs migraine 5. Hx alcohol abuse 6. Hx elevated LFTs 7. Thrombocytopenia BETTER 8. Depression, mild 9. cellulitis and folliculitis at the mons pubis 10 PANCYTOPENIA BETTER plan per gi ok to home ANTIBIOTICS Problems: Subjective 24 Hr Interval Summary Respiratory: no complaints Cardiovascular: no complaints Gastrointestinal: no complaints Exam/Review of Systems Vital Signs Vitals Vital Signs Date Time Temp Pulse Resp B/P Pulse Ox O2 Delivery O2 Flow Rate FiO2 04/03/17 08:15 97.8 63 18 108/69 96 Intake and Output 04/02/17 04/02/17 04/03/17 15:00 23:00 07:00 Intake Total 100 ml 2020 ml 1150 ml Balance 100 ml 2020 ml 1150 ml Exam Respiratory: clear to auscultation Cardiovascular: regular rate and rhythm Gastrointestinal: bowel sounds (+), soft Results Result Diagram: 04/02/17 0507 04/02/17 0507 Medications Medications Current Medications Hydromorphone HCl (Dilaudid) 1 mg Q4H PRN IV PAIN Last administered on 16:58; Admin Dose 1 MG; Start 03/28/17 at 03:00 Morphine Sulfate (morphine) 2 mg Q3 PRN IV PAIN Last administered on 13:01; Admin Dose 2 MG; Start 03/28/17 at 03:00 Ondansetron HCl (Zofran Inj) 4 mg Q4H PRN IV NAUSEA AND/OR VOMITING Last administered on 04/03/17 08:35; Admin Dose 4 MG; Start 03/28/17 at 03:00 Amlodipine Besylate (Norvasc) 5 mg DAILY PO Last administered on 04/03/17 08: 38; Admin Dose 5 MG; Start 03/28/17 at 09:00 Levetiracetam (Keppra) 500 mg BID PO Last administered on 04/03/17 08:38; Admin Dose 500 MG; Start 03/28/17 at 09:00 [place] Carbonate ([place] Carbonate) 300 mg QHS PO Last administered on 20:14; Admin Dose 300 MG; Start 03/28/17 at 21:00 Paroxetine HCl (Paxil) 40 mg HS PO Last administered on 04/02/17 20:14; Admin Dose 40 MG; Start 03/28/17 at 21:00 Sucralfate (Carafate) 1 gm BID PO Last administered on 04/03/17 08:37; Admin Dose 1 GM; Start 03/28/17 at 09:00 Topiramate (Topamax) 50 mg QHS PO Last administered on 04/02/17 20:15; Admin Dose 50 MG; Start 03/28/17 at 21:00 Tramadol HCl (Ultram) 50 mg BID PRN PO PAIN; Start 03/28/17 at 08:00 Zolpidem Tartrate (Ambien) 10 mg QHS PO Last administered on 04/02/17 21:45; Admin Dose 10 MG; Start 03/28/17 at 21:00 Bisacodyl (Dulcolax Supp) 10 mg DAILY PRN [place] CONSTIPATION Last administered on 03/28/17 12:06; Admin Dose 10 MG; Start 03/28/17 at 11:30 Cephalexin (Keflex) 500 mg Q6 PO Last administered on 04/03/17 18:18; Admin Dose 500 MG; Start 03/29/17 at 18:00 Pantoprazole 40 mg 40 mg DAILY@06 PO Last administered on 04/03/17 05:19; Admin Dose 40 MG; Start 03/31/17 at 06:00 Dextrose (D5W) 1,000 ml @ 50 mls/hr Q20H IV Last administered on 04/03/17 04 :14; Admin Dose 50 MLS/HR; Start 03/31/17 at 11:30 Nystatin (Nystatin Powder) 1 applic DAILY TOP Last administered on 04/03/17 08:41; Admin Dose 1 APPLIC; Start 04/01/17 at 21:00 YASMANI LUND MD Apr 03, 2017 18:30
--- NOTE | 2017-04-04 10:02 | QN ---
Documentation Comment [id number] YASMANI LUND MD Apr 04, 2017 10:02
--- NOTE | 2017-04-04 12:42 | DS ---
DATE OF ADMISSION: 03/27/2017 DATE OF DISCHARGE: 04/03/2017 HOSPITAL COURSE: The patient was admitted. The patient is a young female who presented to this hospital with a diagnosis of abdominal pain. The patient had acute pancreatitis with history of pseudocyst. The patient has seen Dr. Rodrigo Mojica in the past. The patient also has a history of migraine, history of alcohol abuse with abnormal LFTs, thrombocytopenia, history of depression. The patient noted to have hematocrit 35.6 and patient's sodium 143, 3.6 potassium and patient's albumin 2.7. She had an abnormal CT scan and pelvic CT scan done and shows acute pancreatitis with presumed pseudocyst in the pancreatic tail that has increased in size compared to prior examination, bilateral nephrolithiasis increased, formed stool throughout the colon. Abdominal MRI scan shows possible mild acute pancreatitis as above, nonspecific 3.7 cm cystic structure seen associated with pancreatic tail, demonstrated areas of peripheral artifact, looks like it is a pseudocyst, no cholelithiasis or cholecystitis identified and patient was seen by Dr. Berry. The patient was started on clear liquid, changed to low fat diet. Dr. Berry thought patient may have communicating pseudocyst and she may benefit from stent, but there was no communicating cyst so Dr. Berry wants the patient to be followed up as an outpatient. The patient is stable. Pain is better. The patient was cleared to be discharged home. DISCHARGE DIAGNOSES: 1. Acute pancreatitis with pseudocyst. 2. Anemia. 3. History of migraine. 4. History of alcohol abuse. 5. Abnormal LFTs. 6. The patient has history of anxiety, depression. 7. The patient has pancytopenia. 8. The patient was seen by Dr. Bert Dubois. The patient with history of Bartholin's cyst, has cellulitis and folliculitis at the mons pubis. DISCHARGE MEDICATIONS: To continue on: 1. Bisacodyl. 2. Keflex. 3. Nystatin. 4. Tramadol. 5. Continue Tylenol with codeine at home. 6. Albuterol. 7. Amlodipine. 8. Keppra. 9. [place] carbonate. 10. Zofran. 11. Protonix. 12. Paxil. 13. Carafate. 14. Topamax. 15. Ambien. The patient to follow up with Dr. Berry, the patient's own primary care doctor as an outpatient and outpatient [employer]. DISPOSITION: The patient is stable at the time of discharge. Dictated By: YASMANI LUND MD BS/OLESYA Conf#: [id number] DID#: [id number]
== END 2017-04-03 18:35 | disposition home or self-care (01) | DRG 439 ==
LOC: FTE 17:35 → PP2 22:00
PROVIDERS: ADMIT Internal Medicine Nephrology; ATTEND Internal Medicine Nephrology
DX: K85.90 Acute pancreatitis without necrosis or infection, unspecified (principal); K86.3 Pseudocyst of pancreas; D61.818 Other pancytopenia; L03.315 Cellulitis of perineum; K59.00 Constipation, unspecified; F32.9 Major depressive disorder, single episode, unspecified; L73.9 Follicular disorder, unspecified; J45.909 Unspecified asthma, uncomplicated; I10 Essential (primary) hypertension
CPT/HCPCS: 36415; 74176; 74181; 80053; 81001; 81003; 83690; 83735; 84100; 85014; 85018; 85025; 96374; 96375; C9113; J1170; J1200; J2270; J2405; J7030; J7050; J7070

== ENCOUNTER 2017-05-10 17:11 | Emergency (ER) | END 2017-05-10 21:47 | disposition home or self-care (01) ==

== ENCOUNTER 2017-06-17 20:44 | Inpatient (IN) | END 2017-06-21 15:15 | disposition home or self-care (01) | DRG 392 ==

== ENCOUNTER 2017-08-05 19:03 | Emergency (ER) | END 2017-08-06 01:02 | disposition home or self-care (01) ==

== ENCOUNTER 2017-08-27 23:34 | Inpatient (IN) | END 2017-08-29 18:50 | disposition home or self-care (01) | DRG 641 ==

== ENCOUNTER 2017-09-05 23:27 | Inpatient (IN) | END 2017-09-08 18:30 | disposition home or self-care (01) | DRG 440 ==

== ENCOUNTER 2017-09-14 07:21 | Emergency (ER) | END 2017-09-14 08:32 | disposition home or self-care (01) ==

== ENCOUNTER 2017-11-22 18:52 | Emergency (ER) | END 2017-11-22 22:35 | disposition home or self-care (01) ==

== ENCOUNTER 2017-12-04 14:44 | Inpatient (IN) | END 2017-12-11 20:00 | disposition home or self-care (01) | DRG 384 ==

== ENCOUNTER 2018-02-03 03:45 | Observation (INO) | END 2018-02-05 16:40 | disposition home or self-care (01) ==

== ENCOUNTER 2018-02-17 19:54 | Emergency (ER) | END 2018-02-18 00:06 | disposition home or self-care (01) ==

== ENCOUNTER 2018-03-08 19:57 | Emergency (ER) | END 2018-03-08 22:58 | disposition home or self-care (01) ==

== ENCOUNTER 2018-04-22 09:53 | Inpatient (IN) | END 2018-04-23 16:55 | disposition home or self-care (01) | DRG 382 ==

== ENCOUNTER 2018-06-29 11:01 | Emergency (ER) | payer OTHER ==
[~2018-06-29] VITALS: Ht 160 cm; Wt 50.7 kg
[~2018-06-29 11:01] MED LIST changes: -ACET1TAB40 PO; -ALBU18HF INH; -AMLO-145 PO; +AMLO5TAB4 PO; -CEPH-443 PO; -DOXY100T20 PO; +Erythromycin Base (Ec) PO; +FIORICET PO; -HYDR-906 PO; +LEVE500T8 PO; -LITHIUM; +LORA0.5T PO; +METO5TAB58 PO; -NAPR-260 PO; -ONDA-43 PO; -ONDA4TAB14 PO; -ONDA4TAB8 PO; +PARO40TA79 PO; -PAROXETINE; +ROPI1TAB PO; -SUCR1TAB27 PO; +SUCR1TAB56 PO; -SUCRALFATE 1 GM; +SUMA25TA34 PO; -SUMATRIPTAN; +TOPI100T PO; -TOPIRAMATE; -TRAZADONE; -VENTOLIN; +ZOLP10TA PO
[2018-06-29 11:07] VITALS: Ht 160 cm; Wt 50.7 kg
[2018-06-29] MEDS ORDERED: ACETAMINOPHEN 500 MG TAB PO STA (11:49)
--- NOTE | 2018-06-29 12:46 | ERD ---
ER Documentation Chief Complaint Chief Complaint anxiety and left wrist pain from restraints "off psych medications" HPI 38-year-old female presents the emergency department with multiple complaints. Patient is a somewhat tangential historian. Patient states that she has significant anxiety has been previously evaluated for a 5150. She apparently went to so far as to requiring restraints at a local emergency department. She states that since the restraints were applied, she has been having wrist pain on her left wrist. However she feels it is not broken. She denies any numbness, tingling, loss of function. Also states that she has a nonspecific headache and anxious feet. In regards to her psychiatric presentation, she states that she is feeling anxious and wishes to be evaluated for psychiatric placement. She is very limited in the details that she provides me and does not time me about any specific suicidal plan. ROS All systems reviewed and are negative except as per history of present illness. Medications Home Meds Active Scripts Lorazepam* (Lorazepam*) 0.5 Mg Tablet, 0.5 MG PO Q8 PRN for ANXIETY for 7 Days, TAB Prov:RUT MADRIGAL 06/13/18 Topiramate* (Topamax*) 100 Mg Tablet, 100 MG PO DAILY for 30 Days, TAB Prov:RUT MADRIGAL 06/13/18 Sumatriptan Succinate* (Imitrex*) 25 Mg Tablet, 25 MG PO Q8H PRN for Migraines, #9 TAB Prov:RUT MADRIGAL 06/13/18 Pantoprazole* (Pantoprazole*) 40 Mg Tablet.dr, 40 MG PO BID for 30 Days, TAB Prov:RUT MADRIGAL 06/13/18 Reported Medications Levetiracetam* (Levetiracetam*) 500 Mg Tablet, 500 MG PO BID, TAB 06/16/18 Amlodipine Besylate* (Norvasc*) 5 Mg Tablet, 5 MG PO DAILY, TAB 04/20/18 Metoclopramide* (Reglan*) 5 Mg Tablet, 5 MG PO AC MEALS AND BEDTIME, TAB 04/20/18 Ropinirole Hcl* (Ropinirole Hcl*) 1 Mg Tablet, 1 MG PO HS, TAB 02/17/18 Sucralfate* (Carafate*) 1 Gm Tab, 1 GM PO BID, TAB 02/17/18 Zolpidem Tartrate* (Ambien*) 10 Mg Tablet, 10 MG PO QHS PRN for INSOMNIA, TAB 02/17/18 Acetamin/Butalbital/Caffeine* (Fioricet*) [id number] Tab, 1 TAB PO NEEDED PRN for PAIN LEVEL 1-5, TAB 02/17/18 Paroxetine Hcl* (Paroxetine*) 40 Mg Tablet, 40 MG PO HS, TAB 02/17/18 Discontinued Scripts [Erythromycin Base (Ec)] 250 MG TABEC No Conflict Check, 250 MG PO Q8 for 30 Days Prov:RUT MADRIGAL 06/13/18 Allergies Allergies: Coded Allergies: No Known Allergy (Unverified , 06/29/18) PMhx/Soc Medical and Surgical Hx: pt denies Surgical Hx History of Surgery: No Anesthesia Reaction: No Hx Neurological Disorder: Yes (migraines, seizures) Hx Respiratory Disorders: Yes (asthma) Hx Cardiac Disorders: Yes (htn) Hx Psychiatric Problems: Yes (BIPOLAR, ANXIETY ) Hx Miscellaneous Medical Probl: No Hx Alcohol Use: Yes Hx Substance Use: No Hx Tobacco Use: Yes Smoking Status: Former smoker Physical Exam Vitals Vital Signs Date Temp Pulse Resp B/P (MAP) Pulse Ox O2 O2 Flow FiO2 Time Delivery Rate 06/29/18 98.4 83 18 159/86 99 11:07 (110) Physical Exam GENERAL: The patient is well developed and appropriate for usual state of health in no apparent distress HEENT: Pupils equal, round, and reactive to light. EOMI. There is no scleral icterus. NECK: C-spine is soft and supple, there is no meningismus. There is no cervical lymphadenopathy. LUNGS: Clear to auscultation bilaterally. There are no rales, wheezes or rhonchi. HEART: Regular rate and rhythm, no murmurs, clicks, rubs or gallops. ABDOMEN: Soft, non-tender, non-distended. There are bowel sounds in all four quadrants. No rebound or guarding. EXTREMITIES: There is no peripheral cyanosis or edema. No focal swelling or erythema. The left wrist demonstrates no tenderness including no snuffbox tenderness and full range of motion. NEURO: The patient moves all four extremities with 5/5 strength. Cranial nerves II - XII are intact. Normal gait. Alert and oriented SKIN: There is no apparent rash or petechiae. Hesitation [place] are noted in the left wrist. No significant laceration. HEME/LYMPHATIC: There is no evidence of excessive bruising or lymphedema. PSYCHIATRIC: Patient is awake, alert, oriented. She has a somewhat anxious and tangential thought process and affect. She is denying suicidal or homicidal thoughts However, she states that she wants to be evaluated for psychiatric hold. Result Diagram: 06/29/18 1139 06/29/18 1139 Results 24 hrs Laboratory Tests Test 06/29/18 11:33 06/29/18 11:39 Urine Color YELLOW Urine Clarity CLOUDY Urine pH 7.0 Urine Specific [place] 1.016 Urine Ketones NEGATIVE mg/dL Urine Nitrite NEGATIVE mg/dL Urine Bilirubin NEGATIVE mg/dL Urine Urobilinogen NEGATIVE mg/dL Urine Leukocyte Esterase NEGATIVE Fide/ul Urine Microscopic RBC 1 /HPF Urine Microscopic WBC 1 /HPF Urine Squamous Epithelial Cells FEW /HPF Urine Amorphous Crystals MANY /HPF Urine Bacteria FEW /HPF Urine Hemoglobin NEGATIVE mg/dL Urine Glucose NEGATIVE mg/dL Urine Total Protein NEGATIVE mg/dl Urine Opiates Screen Negative Urine Barbiturates Positive Urine Amphetamines Screen Negative Urine Benzodiazepines Screen Negative Urine Cocaine Screen Negative Urine Cannabinoids Negative White Blood Count 4.3 10^3/ul Red Blood Count 3.82 10^6/ul Hemoglobin 12.9 g/dl Hematocrit 39.6 % Mean Corpuscular Volume 103.7 fl Mean Corpuscular Hemoglobin 33.8 pg Mean Corpuscular Hemoglobin Concent 32.6 g/dl Red Cell Distribution Width 16.1 % Platelet Count 184 10^3/UL Mean Platelet Volume 10.7 fl Immature Granulocytes % 0.500 % Neutrophils % 65.5 % Lymphocytes % 25.4 % Monocytes % 7.0 % Eosinophils % 0.7 % Basophils % 0.9 % Nucleated Red Blood Cells % 0.0 /100WBC Immature Granulocytes # 0.020 10^3/ul Neutrophils # 2.8 10^3/ul Lymphocytes # 1.1 10^3/ul Monocytes # 0.3 10^3/ul Eosinophils # 0.0 10^3/ul Basophils # 0.0 10^3/ul Nucleated Red Blood Cells # 0.0 10^3/ul Sodium Level 140 mmol/L Potassium Level 3.5 mmol/L Chloride Level 116 mmol/L Carbon Dioxide Level 15 mmol/L Anion Gap 9 Blood Urea Nitrogen 16 mg/dl Creatinine 0.64 mg/dl Est Glomerular Filtrat Rate mL/min > 60 mL/min Glucose Level 98 mg/dl Calcium Level 9.4 mg/dl Total Bilirubin 0.1 mg/dl Direct Bilirubin 0.00 mg/dl Indirect Bilirubin 0.1 mg/dl Aspartate Amino Transf (AST/SGOT) 21 IU/L Alanine Aminotransferase (ALT/SGPT) 11 IU/L Alkaline Phosphatase 74 IU/L Total Protein 7.2 g/dl Albumin 4.2 g/dl Globulin 3.00 g/dl Albumin/Globulin Ratio 1.40 Salicylates Level < 1.0 mg/dl Acetaminophen Level < 10.0 ug/ml Ethyl Alcohol Level < 10.0 mg/dl Current Medications Medications Dose Sig/Kevin Start Time Status Last (Trade) Ordered Route PRN Stop Time Admin Dose Reason Admin 1,000 mg ONCE STAT 06/29/18 DC 06/29/18 Acetaminophen PO 11:49 12:02 (Tylenol 06/29/18 11:50 Tab) Procedures/MDM Patient was taken to a room, seen and evaluated. Comfort measures were initiated. Diagnostic tests were ordered and reviewed. CONSULTATION: Tele-psychiatry was requested. This evaluation is pending. REEVALUATION: Diagnostic tests were appreciated and the patient was deemed medically clear. MEDICAL DECISION MAKIN-year-old female presents the emergency department with a number of nonspecific complaints that seem to be psychiatrically related. She is requesting a psychiatric evaluation at this time which is pending. Patient is otherwise "medically clear" will remain under observation till completion of the psychiatric evaluation by tele-psychiatry Departure Diagnosis: Primary Impression: Anxiety Condition: PAULA Carlos Jun 29, 2018 12:46
--- NOTE | 2018-06-29 13:21 | PSY ---
Date/Time of Note Date/Time of Note DATE: 06/29/18 TIME: 16:17 Psychiatric Subjective Eval Consent Pt consented to telemedicine: Yes Subjective Evaluation Patient location: emergency Chief Complaint: anxiety and left wrist pain from restraints "off psych medications" History of present illness 38 yo female with ho depression and anxiety, came to ED with anxiety and depression. clearly tells MD she wants to kill self and has no plan. Admits to depression and anxiety. Also reports very tearful and has insomnia. Wants to be admitted. Past Psych Hx: + ho psych admits and suicide attempts PMhx: epilepsy nkda Meds: ativan, keppra MSE: casually groomed, decreased prosody of speech, dysthymic, restricted affect, tangential, no delusions or avh denies si/hi Imp: 38 yo female acute danger to self Utox Uhcg Voluntary psych admit For moderate agitation Zyprexa 5mg po prn For severe agitation chlorpromazine 25mg im prn Alcohol withdrawal precautions with CIWA Daily thiamine 100mg po folate 1mg po mvi Medical history Problems Medical Problems: (1) Abdominal pain Status: Acute (2) Abdominal pain Status: Acute (3) Abdominal pain Status: Acute (4) Abscess Status: Acute (5) Acute vomiting Status: Acute (6) Alcohol abuse Status: Acute (7) Anxiety Status: Acute (8) Back contusion Status: Acute (9) Bipolar 1 disorder Status: Acute (10) Dehydration Status: Acute (11) Diarrhea Status: Acute (12) Dilated bile duct Status: Acute (13) Epigastric abdominal pain Status: Acute (14) Epigastric pain Status: Acute (15) Headache Status: Acute (16) Headache Status: Acute (17) Headache Status: Acute (18) Hypokalemia Status: Acute (19) Hypokalemia Status: Acute (20) Hypokalemia Status: Acute (21) Hypokalemia Status: Acute (22) Intractable vomiting Status: Acute (23) Leukopenia Status: Acute (24) Multiple complaints Status: Acute (25) Nausea and vomiting Status: Acute (26) Pancreatitis Status: Acute (27) Pancreatitis Status: Acute (28) Pancreatitis Status: Acute (29) Seizure disorder Status: Acute (30) Thrombocytopenia Status: Acute (31) Transaminitis Status: Acute (32) UTI (urinary tract infection) Status: Acute (33) Vomiting and diarrhea Status: Acute (34) Weakness Status: Acute Allergies: Coded Allergies: No Known Allergy (Unverified , 06/29/18) Psychiatric Objective Eval Mental Status Examination: Laboratory Results Laboratory Tests Test 06/29/18 11:33 06/29/18 11:39 Urine Color YELLOW Urine Clarity CLOUDY Urine pH 7.0 Urine Specific [place] 1.016 Urine Ketones NEGATIVE mg/dL Urine Nitrite NEGATIVE mg/dL Urine Bilirubin NEGATIVE mg/dL Urine Urobilinogen NEGATIVE mg/dL Urine Leukocyte Esterase NEGATIVE Fide/ul Urine Microscopic RBC 1 /HPF Urine Microscopic WBC 1 /HPF Urine Squamous Epithelial Cells FEW /HPF Urine Amorphous Crystals MANY /HPF Urine Bacteria FEW /HPF Urine Hemoglobin NEGATIVE mg/dL Urine Glucose NEGATIVE mg/dL Urine Total Protein NEGATIVE mg/dl Urine Opiates Screen Negative Urine Barbiturates Positive Urine Amphetamines Screen Negative Urine Benzodiazepines Screen Negative Urine Cocaine Screen Negative Urine Cannabinoids Negative White Blood Count 4.3 10^3/ul Red Blood Count 3.82 10^6/ul Hemoglobin 12.9 g/dl Hematocrit 39.6 % Mean Corpuscular Volume 103.7 fl Mean Corpuscular Hemoglobin 33.8 pg Mean Corpuscular Hemoglobin Concent 32.6 g/dl Red Cell Distribution Width 16.1 % Platelet Count 184 10^3/UL Mean Platelet Volume 10.7 fl Immature Granulocytes % 0.500 % Neutrophils % 65.5 % Lymphocytes % 25.4 % Monocytes % 7.0 % Eosinophils % 0.7 % Basophils % 0.9 % Nucleated Red Blood Cells % 0.0 /100WBC Immature Granulocytes # 0.020 10^3/ul Neutrophils # 2.8 10^3/ul Lymphocytes # 1.1 10^3/ul Monocytes # 0.3 10^3/ul Eosinophils # 0.0 10^3/ul Basophils # 0.0 10^3/ul Nucleated Red Blood Cells # 0.0 10^3/ul Sodium Level 140 mmol/L Potassium Level 3.5 mmol/L Chloride Level 116 mmol/L Carbon Dioxide Level 15 mmol/L Anion Gap 9 Blood Urea Nitrogen 16 mg/dl Creatinine 0.64 mg/dl Est Glomerular Filtrat Rate mL/min > 60 mL/min Glucose Level 98 mg/dl Calcium Level 9.4 mg/dl Total Bilirubin 0.1 mg/dl Direct Bilirubin 0.00 mg/dl Indirect Bilirubin 0.1 mg/dl Aspartate Amino Transf (AST/SGOT) 21 IU/L Alanine Aminotransferase (ALT/SGPT) 11 IU/L Alkaline Phosphatase 74 IU/L Total Protein 7.2 g/dl Albumin 4.2 g/dl Globulin 3.00 g/dl Albumin/Globulin Ratio 1.40 Salicylates Level < 1.0 mg/dl Acetaminophen Level < 10.0 ug/ml Ethyl Alcohol Level < 10.0 mg/dl Assessment and Plan Recommendation/Plan Multiple antipsychotics: No Discharge Disposition: Psychiatric inpatient Legal Status: Place involuntary hold AMRITA,ISABEL Jun 29, 2018 13:21
[2018-06-29] MEDS ORDERED: LORAZEPAM 1 MG TAB PO ONE (14:00)
[2018-06-29] MEDS ORDERED: KETOROLAC 30 MG INJ IM STA (17:18)
[2018-06-29 20:30] VITALS: BP 133/81; PULSE 64; RESP 18
== END 2018-06-29 19:30 | disposition home or self-care (01) ==
LOC: E/R 11:01
DX: F41.9 Anxiety disorder, unspecified (principal); J45.909 Unspecified asthma, uncomplicated; I10 Essential (primary) hypertension; Z87.891 Personal history of nicotine dependence
CPT/HCPCS: 36415; 80053; 80307; 81001; 84703; 85025; 96372; J1885; Z7502; Z7610

== ENCOUNTER 2018-08-05 20:16 | Emergency (ER) | payer OTHER ==
[~2018-08-05] VITALS: Ht 152.4 cm; Wt 51.0 kg
[~2018-08-05 20:16] MED LIST changes: -Erythromycin Base (Ec) PO
[2018-08-05 20:23] VITALS: Ht 152.4 cm; Wt 51.0 kg
[2018-08-05] MEDS ORDERED: SOD CHLORIDE 0.9% 1,000 ML IV STA (22:52)
[2018-08-05] MEDS ORDERED: morphine 4 MG/ML VIAL IV STA (22:52)
[2018-08-05] MEDS ORDERED: ONDANSETRON 4 MG INJ IV STA (22:52)
[2018-08-06] MEDS ORDERED: ONDA4TAB14 PO (01:11)
[2018-08-06] MEDS ORDERED: TRAM50TA2 PO (01:11)
[2018-08-06] MEDS ORDERED: LEVE-5 PO (01:14)
--- NOTE | 2018-08-06 01:14 | ERD ---
ER Documentation Chief Complaint Chief Complaint DIZZY, VOMIT, DIARRHEA X'S 3 DAYS NO KEPPRA FOR 3 WEEKS. HPI This is a very pleasant 38-year-old female dizzy nests and a headache and photophobia for 3 days. Patient has a history of being migraines. She also she has been out of her Keppra but denies any seizure-like activity. She said the headache is mild to moderate in intensity and with associated dizziness and photophobia which is normal for her migraine. She denies any focal neurological complaints. She denies any other current issues. ROS All systems reviewed and are negative except as per history of present illness. Medications Home Meds Active Scripts Ondansetron (Ondansetron Odt) 4 Mg Tab.rapdis, 4 MG PO Q6H PRN for NAUSEA AND/OR VOMITING, #10 TAB Prov:KUSUM VAZQUEZ 08/06/18 Tramadol HCl (Tramadol HCl) 50 Mg Tablet, 50 MG PO Q4 PRN for PAIN, #20 TAB Prov:KUSUM VAZQUEZ 08/06/18 Lorazepam* (Lorazepam*) 0.5 Mg Tablet, 0.5 MG PO Q8 PRN for ANXIETY for 7 Days, TAB Prov:RUT MADRIGAL 06/13/18 Topiramate* (Topamax*) 100 Mg Tablet, 100 MG PO DAILY for 30 Days, TAB Prov:RUT MADRIGAL 06/13/18 Sumatriptan Succinate* (Imitrex*) 25 Mg Tablet, 25 MG PO Q8H PRN for Migraines, #9 TAB Prov:RUT MADRIGAL 06/13/18 Pantoprazole* (Pantoprazole*) 40 Mg Tablet.dr, 40 MG PO BID for 30 Days, TAB Prov:RUT MADRIGAL 06/13/18 Reported Medications Levetiracetam* (Levetiracetam*) 500 Mg Tablet, 500 MG PO BID, TAB 06/16/18 Amlodipine Besylate* (Norvasc*) 5 Mg Tablet, 5 MG PO DAILY, TAB 04/20/18 Metoclopramide* (Reglan*) 5 Mg Tablet, 5 MG PO AC MEALS AND BEDTIME, TAB 04/20/18 Ropinirole Hcl* (Ropinirole Hcl*) 1 Mg Tablet, 1 MG PO HS, TAB 02/17/18 Sucralfate* (Carafate*) 1 Gm Tab, 1 GM PO BID, TAB 02/17/18 Zolpidem Tartrate* (Ambien*) 10 Mg Tablet, 10 MG PO QHS PRN for INSOMNIA, TAB 02/17/18 Acetamin/Butalbital/Caffeine* (Fioricet*) [id number] Tab, 1 TAB PO NEEDED PRN for PAIN LEVEL 1-5, TAB 02/17/18 Paroxetine Hcl* (Paroxetine*) 40 Mg Tablet, 40 MG PO HS, TAB 02/17/18 Allergies Allergies: Coded Allergies: No Known Allergy (Unverified , 06/29/18) PMhx/Soc History of Surgery: No Anesthesia Reaction: No Hx Neurological Disorder: Yes (migraines, seizures) Hx Respiratory Disorders: Yes (asthma) Hx Cardiac Disorders: Yes (htn) Hx Psychiatric Problems: Yes (BIPOLAR, ANXIETY ) Hx Miscellaneous Medical Probl: No Hx Alcohol Use: Yes Hx Substance Use: No Hx Tobacco Use: Yes Smoking Status: Current every day smoker Physical Exam Vitals Vital Signs Date Temp Pulse Resp B/P (MAP) Pulse Ox O2 O2 Flow FiO2 Time Delivery Rate 08/06/18 68 18 126/90 100 Room Air 00:32 (102) 08/05/18 97.0 71 18 142/85 100 20:23 (104) Physical Exam Const: No acute distress Head: Atraumatic Eyes: Normal Conjunctiva ENT: Normal External Ears, Nose and Mouth. Neck: Full range of motion. No meningismus. Resp: Clear to auscultation bilaterally Cardio: Regular rate and rhythm, no murmurs Abd: Soft, non tender, non distended. Normal bowel sounds Skin: No petechiae or rashes Back: No midline or flank tenderness Ext: No cyanosis, or edema Neur: Awake and alert Psych: Normal Mood and Affect Result Diagram: 08/05/18 2305 08/05/182304 Results 24 hrs Laboratory Tests Test 08/05/18 23:05 08/05/18 23:13 White Blood Count 4.9 10^3/ul Red Blood Count 4.08 10^6/ul Hemoglobin 13.6 g/dl Hematocrit 42.7 % Mean Corpuscular Volume 104.7 fl Mean Corpuscular Hemoglobin 33.3 pg Mean Corpuscular Hemoglobin Concent 31.9 g/dl Red Cell Distribution Width 14.3 % Platelet Count 169 10^3/UL Mean Platelet Volume 10.4 fl Immature Granulocytes % 0.400 % Neutrophils % 61.4 % Lymphocytes % 27.8 % Monocytes % 7.6 % Eosinophils % 2.0 % Basophils % 0.8 % Nucleated Red Blood Cells % 0.0 /100WBC Immature Granulocytes # 0.020 10^3/ul Neutrophils # 3.0 10^3/ul Lymphocytes # 1.4 10^3/ul Monocytes # 0.4 10^3/ul Eosinophils # 0.1 10^3/ul Basophils # 0.0 10^3/ul Nucleated Red Blood Cells # 0.0 10^3/ul Urine Color YELLOW Urine Clarity CLOUDY Urine pH 7.0 Urine Specific [place] 1.014 Urine Ketones NEGATIVE mg/dL Urine Nitrite NEGATIVE mg/dL Urine Bilirubin NEGATIVE mg/dL Urine Urobilinogen NEGATIVE mg/dL Urine Leukocyte Esterase NEGATIVE Fide/ul Urine Microscopic RBC 1 /HPF Urine Microscopic WBC 1 /HPF Urine Amorphous Crystals FEW /HPF Urine Bacteria FEW /HPF Urine Hemoglobin NEGATIVE mg/dL Urine Glucose NEGATIVE mg/dL Urine Total Protein NEGATIVE mg/dl Sodium Level 140 mmol/L Potassium Level 3.4 mmol/L Chloride Level 105 mmol/L Carbon Dioxide Level 23 mmol/L Anion Gap 12 Blood Urea Nitrogen 11 mg/dl Creatinine 0.68 mg/dl Est Glomerular Filtrat Rate mL/min > 60 mL/min Glucose Level 98 mg/dl Calcium Level 9.5 mg/dl Total Bilirubin 0.4 mg/dl Direct Bilirubin 0.00 mg/dl Indirect Bilirubin 0.4 mg/dl Aspartate Amino Transf (AST/SGOT) 25 IU/L Alanine Aminotransferase (ALT/SGPT) < 6 IU/L Alkaline Phosphatase 72 IU/L Total Protein 7.7 g/dl Albumin 4.6 g/dl Globulin 3.10 g/dl Albumin/Globulin Ratio 1.48 Lipase 21 U/L POC Beta HCG, Qualitative NEGATIVE Current Medications Medications Dose Sig/Kevin Start Time Status Last (Trade) Ordered Route PRN Stop Time Admin Dose Reason Admin Sodium 1,000 ml @ Q1H STAT 08/05/18 DC 08/05/18 Chloride 1,000 mls/hr IV 22:52 08/05/18 23:34 23:51 Morphine 4 mg ONCE STAT 08/05/18 DC 08/05/18 Sulfate IV 22:52 08/05/18 23:34 (morphine) 22:55 Ondansetron 4 mg ONCE STAT 08/05/18 DC 08/05/18 HCl (Zofran IV 22:52 08/05/18 23:34 Inj) 22:55 Procedures/MDM Emergency department course: Patient seen about by triage nurse. Placed in bed from evaluation. Had intravenous access established. Was given fluid bolus. Given pain medication. Serial exams are stable. Pain resolved. Medical decision making: Patient's neurologic symptoms have stabilized while they have been evaluated in the department and are appropriate for outpatient work up. No e/o meningitis, intracranial bleed, seizure, stroke. Departure Diagnosis: Primary Impression: Migraine Migraine type: unspecified Status migrainosus presence: without status migrainosus Intractability: not intractable Qualified Codes: G43.909 - Migraine, unspecified, not intractable, without status migrainosus Condition: Stable KUSUM VAZQUEZ Aug 06, 2018 01:14
[2018-08-06 01:39] VITALS: BP 118/93; PULSE 72; RESP 18
== END 2018-08-06 01:41 | disposition home or self-care (01) ==
LOC: E/R 20:16
DX: G43.909 Migraine, unspecified, not intractable, without status migrainosus (principal); J45.909 Unspecified asthma, uncomplicated; I10 Essential (primary) hypertension; F17.210 Nicotine dependence, cigarettes, uncomplicated
CPT/HCPCS: 80053; 81001; 81025; 83690; 85025; J2270; J2405; J7030; 36415; 96374; 96375

== ENCOUNTER 2018-08-11 17:11 | Emergency (ER) | payer OTHER ==
[~2018-08-11] VITALS: Ht 154.9 cm; Wt 49.4 kg
[~2018-08-11 17:11] MED LIST changes: +LEVE-5 PO; +ONDA4TAB14 PO; +TRAM50TA2 PO
[2018-08-11 17:16] VITALS: Ht 154.9 cm; Wt 49.4 kg
[2018-08-11] MEDS ORDERED: ONDANSETRON (ODT) 4 MG TAB ODT STA (19:19)
[2018-08-11] MEDS ORDERED: KETOROLAC 30 MG INJ IM STA (19:21)
[2018-08-11] MEDS ORDERED: LIDOCAINE/MYLANTA 40 ML BTL PO ONE (19:30)
[2018-08-11] MEDS ORDERED: IBUP-1542 PO (21:18)
[2018-08-11] MEDS ORDERED: ACET-141 PO (21:18)
[2018-08-11] MEDS ORDERED: ONDA4TAB14 PO (21:18)
[2018-08-11] MEDS ORDERED: MAG-19 PO (21:20)
--- NOTE | 2018-08-11 21:23 | ERD ---
ER Documentation Chief Complaint Chief Complaint vomitting, epigastric pain right shoulder pain x HPI 38-year-old female with past medical history of depression, seizure disorder, migraines, bipolar disorder presents for epigastric pain, vomiting, right shoulder pain times 2 days. The pain is rated 9 out of 10, in the epigastric region, described as dull, with radiation to the right shoulder. Patient states that she is been vomiting all day. She took some Zofran and Tylenol without relief. She also states that she took tramadol at home without relief.. Denies any trauma. Denies prior similar symptoms. Denies fevers or chills. Denies chest pain or shortness of breath. ROS All systems reviewed and are negative except as per history of present illness. Medications Home Meds Active Scripts Magaldrate/Simethicone* (Mylanta*) 355 Ml Susp, 30 ML PO QID PRN for GASTROINTESTINAL UPSET, #1 BOTTLE Prov:RAMONA TURK DO 08/11/18 Ondansetron (Ondansetron Odt) 4 Mg Tab.rapdis, 4 MG PO Q6H PRN for NAUSEA AND/OR VOMITING, #15 TAB Prov:RAMONA TURK DO 08/11/18 Acetaminophen* (Acetaminophen*) 500 MG Extra Strength Tablet, 500 MG PO Q4H PRN for PAIN AND OR ELEVATED TEMP, #30 TAB Prov:RAMONA TURK DO 08/11/18 Ibuprofen* (Motrin*) 600 Mg Tab, 600 MG PO Q6H PRN for PAIN AND OR ELEVATED TEMP, #30 TAB Prov:RAMONA TURK DO 08/11/18 Levetiracetam* (Keppra*) 500 Mg Tablet, 500 MG PO BID, #60 TAB Prov:KUSUM VAZQUEZ 08/06/18 Ondansetron (Ondansetron Odt) 4 Mg Tab.rapdis, 4 MG PO Q6H PRN for NAUSEA AND/OR VOMITING, #10 TAB Prov:KUSUM VAZQUEZ 08/06/18 Tramadol HCl (Tramadol HCl) 50 Mg Tablet, 50 MG PO Q4 PRN for PAIN, #20 TAB Prov:KUSUM VAZQUEZ 08/06/18 Lorazepam* (Lorazepam*) 0.5 Mg Tablet, 0.5 MG PO Q8 PRN for ANXIETY for 7 Days, TAB Prov:MEZENTILARUT EVANS 06/13/18 Topiramate* (Topamax*) 100 Mg Tablet, 100 MG PO DAILY for 30 Days, TAB Prov:LISSETTEANNARUT Webster 06/13/18 Sumatriptan Succinate* (Imitrex*) 25 Mg Tablet, 25 MG PO Q8H PRN for Migraines, #9 TAB Prov:LISSETTETILARUT EVANS 06/13/18 Pantoprazole* (Pantoprazole*) 40 Mg Tablet.dr, 40 MG PO BID for 30 Days, TAB Prov:LISSETTETILARUT EVANS 06/13/18 Reported Medications Levetiracetam* (Levetiracetam*) 500 Mg Tablet, 500 MG PO BID, TAB 06/16/18 Amlodipine Besylate* (Norvasc*) 5 Mg Tablet, 5 MG PO DAILY, TAB 04/20/18 Metoclopramide* (Reglan*) 5 Mg Tablet, 5 MG PO AC MEALS AND BEDTIME, TAB 04/20/18 Ropinirole Hcl* (Ropinirole Hcl*) 1 Mg Tablet, 1 MG PO HS, TAB 02/17/18 Sucralfate* (Carafate*) 1 Gm Tab, 1 GM PO BID, TAB 02/17/18 Zolpidem Tartrate* (Ambien*) 10 Mg Tablet, 10 MG PO QHS PRN for INSOMNIA, TAB 02/17/18 Acetamin/Butalbital/Caffeine* (Fioricet*) [id number] Tab, 1 TAB PO NEEDED PRN for PAIN LEVEL 1-5, TAB 02/17/18 Paroxetine Hcl* (Paroxetine*) 40 Mg Tablet, 40 MG PO HS, TAB 02/17/18 Allergies Allergies: Coded Allergies: No Known Allergy (Unverified , 08/11/18) PMhx/Soc History of Surgery: No Anesthesia Reaction: No Hx Neurological Disorder: Yes (migraines, seizures) Hx Respiratory Disorders: Yes (asthma) Hx Cardiac Disorders: Yes (htn) Hx Psychiatric Problems: Yes (BIPOLAR, ANXIETY ) Hx Miscellaneous Medical Probl: No Hx Alcohol Use: Yes Hx Substance Use: No Hx Tobacco Use: Yes Smoking Status: Never smoker Physical Exam Vitals Vital Signs Date Temp Pulse Resp B/P (MAP) Pulse Ox O2 O2 Flow FiO2 Time Delivery Rate 08/11/18 98.7 76 18 123/88 98 17:16 (100) Physical Exam Const: No acute distress Resp: Clear to auscultation bilaterally Cardio: Regular rate and rhythm, no murmurs, bilateral radial pulses intact Abd: Soft, non distended. Normal bowel sounds, mild epigastric tenderness palpation, no McBurney's point tenderness, no Valadez sign, no rebound or guarding noted Skin: No petechiae or rashes Back: No midline or flank tenderness Ext: No cyanosis, or edema, nontender to palpation of the right shoulder, right shoulder range of motion intact Neur: Awake and alert, bilateral upper extremity sensation intact Psych: Normal Mood and Affect Results 24 hrs Laboratory Tests Test 08/11/18 19:29 08/11/18 19:33 08/11/18 19:40 Urine Color YELLOW Urine Clarity SLIGHTLY CLOUDY Urine pH 7.0 Urine Specific [place] 1.015 Urine Ketones NEGATIVE mg/dL Urine Nitrite NEGATIVE mg/dL Urine Bilirubin NEGATIVE mg/dL Urine Urobilinogen NEGATIVE mg/dL Urine Leukocyte Esterase NEGATIVE Fide/ul Urine Microscopic RBC 0 /HPF Urine Microscopic WBC 3 /HPF Urine Squamous Epithelial Cells FEW /HPF Urine Bacteria FEW /HPF Urine Hemoglobin NEGATIVE mg/dL Urine Glucose NEGATIVE mg/dL Urine Total Protein NEGATIVE mg/dl POC Beta HCG, Qualitative NEGATIVE White Blood Count 6.7 10^3/ul Red Blood Count 4.50 10^6/ul Hemoglobin 15.0 g/dl Hematocrit 45.8 % Mean Corpuscular Volume 101.8 fl Mean Corpuscular Hemoglobin 33.3 pg Mean Corpuscular 32.8 g/dl Hemoglobin Concent Red Cell Distribution Width 13.3 % Platelet Count 191 10^3/UL Mean Platelet Volume 10.6 fl Immature Granulocytes % 0.500 % Neutrophils % 64.7 % Lymphocytes % 27.6 % Monocytes % 4.7 % Eosinophils % 1.4 % Basophils % 1.1 % Nucleated Red Blood Cells % 0.0 /100WBC Immature Granulocytes # 0.030 10^3/ul Neutrophils # 4.3 10^3/ul Lymphocytes # 1.8 10^3/ul Monocytes # 0.3 10^3/ul Eosinophils # 0.1 10^3/ul Basophils # 0.1 10^3/ul Nucleated Red Blood Cells # 0.0 10^3/ul Sodium Level 142 mmol/L Potassium Level 4.5 mmol/L Chloride Level 106 mmol/L Carbon Dioxide Level 23 mmol/L Anion Gap 13 Blood Urea Nitrogen 17 mg/dl Creatinine 0.63 mg/dl Est Glomerular Filtrat > 60 mL/min Rate mL/min Glucose Level 101 mg/dl Calcium Level 9.1 mg/dl Total Bilirubin 0.7 mg/dl Direct Bilirubin 0.00 mg/dl Indirect Bilirubin 0.7 mg/dl Aspartate Amino Transf (AST/SGOT) 30 IU/L Alanine 23 IU/L Aminotransferase (ALT/SGPT) Alkaline Phosphatase 71 IU/L Total Protein 7.9 g/dl Albumin 4.7 g/dl Globulin 3.20 g/dl Albumin/Globulin Ratio 1.46 Lipase 19 U/L Current Medications Medications Dose Sig/Kevin Start Time Status Last (Trade) Ordered Route PRN Stop Time Admin Dose Reason Admin Ondansetron 4 mg ONCE STAT 08/11/18 DC 08/11/18 HCl (Zofran ODT 19:19 08/11/18 19:23 Odt) 19:20 Ketorolac 30 mg ONCE STAT 08/11/18 DC 08/11/18 Tromethamine IM 19:21 08/11/18 19:42 (Toradol) 19:22 40 ml ONCE ONCE 08/11/18 DC 08/11/18 Miscellaneous PO 19:30 08/11/18 19:42 Medication 19:31 (Gi Cocktail (2)) Procedures/MDM Medical Decision Making: Differential diagnosis includes but not limited to acute gastritis, acute gastroenteritis, appendicitis, cholecystitis, pancreatitis, nephrolithiasis Patient appeared well on physical exam. Nontoxic appearing. ED course: Patient was given Toradol, GI cocktail, Zofran. Symptoms improved with treatment. Labs: CBC showed no severe anemia, no elevated WBC to suggest infection CMP showed no electrolyte abnormalities, there was normal kidney and liver function Lipase was normal Urine was negative UA was negative for infection There is only mild tenderness palpation in the epigastric area. Given normal lab tests and benign abdominal exam, there is low suspicion for acute abdomen. Patient possibly has acute gastritis Prescription(s): Patient given prescription for supportive medications . Patient advised to follow up with PCP in 1-2 days. Patient advised to return to ED for new or worsening symptoms. Patient stable on discharge from the ED. Disclaimer: Inadvertent spelling and grammatical errors are likely due to EHR/dictation software use and do not reflect on the overall quality of patient care. Also, please note that the electronic time recorded on this note does not necessarily reflect the actual time of the patient encounter. Departure Patient Instructions: Abdominal Pain, Unknown Cause, (Female) Referrals: COMMUNITY CLINICS YOU HAVE RECEIVED A MEDICAL SCREENING EXAM AND THE RESULTS INDICATE THAT YOU DO NOT HAVE A CONDITION THAT REQUIRES URGENT TREATMENT IN THE EMERGENCY DEPARTMENT. FURTHER EVALUATION AND TREATMENT OF YOUR CONDITION CAN WAIT UNTIL YOU ARE SEEN IN YOUR DOCTORS OFFICE WITHIN THE NEXT 1-2 DAYS. IT IS YOUR RESPONSIBILITY TO MAKE AN APPOINTMENT FOR FOLOW-UP CARE. IF YOU HAVE A PRIMARY DOCTOR --you should call your primary doctor and schedule an appointment IF YOU DO NOT HAVE A PRIMARY DOCTOR YOU CAN CALL OUR PHYSICIAN REFERRAL HOTLINE AT IF YOU CAN NOT AFFORD TO SEE A PHYSICIAN YOU CAN CHOSE FROM THE FOLLOWING FORMERLY [facility] [address] [facility] [address] [facility] [address] [facility] [address] [facility] [address] [facility] [facility]. [address] Additional Instructions: Call your primary care doctor TOMORROW for an appointment during the next 1-2 days.See the doctor sooner or return here if your condition worsens before your appointment time. RAMONA TURK DO Aug 11, 2018 21:23
[2018-08-11 21:48] VITALS: BP 128/81; PULSE 60; RESP 18
== END 2018-08-11 22:19 | disposition home or self-care (01) ==
LOC: FTE 17:11
DX: R10.13 Epigastric pain (principal); M25.511 Pain in right shoulder; R11.10 Vomiting, unspecified; J45.909 Unspecified asthma, uncomplicated; I10 Essential (primary) hypertension; Z87.891 Personal history of nicotine dependence
CPT/HCPCS: 36415; 80053; 81001; 81025; 83690; 85025; 96372; J1885; Z7502; Z7610; 81003

== ENCOUNTER 2018-09-18 19:38 | Emergency (ER) | payer OTHER ==
[~2018-09-18] VITALS: Wt 47.8 kg
[~2018-09-18 19:38] MED LIST changes: +ACET-141 PO; +IBUP-1542 PO; +MAG-19 PO
[2018-09-18 20:11] VITALS: BP 123/91; PULSE 106; RESP 18
[2018-09-18] MEDS ORDERED: LIDOCAINE/MYLANTA 40 ML BTL PO ONE (21:30)
[2018-09-18] MEDS ORDERED: PANTOPRAZOLE (EC) 40 MG TAB PO ONE (21:30)
--- NOTE | 2018-09-18 23:07 | ERD ---
ER Documentation Chief Complaint Chief Complaint EPIGASTRIC PAIN/ BURNING X'S 3 DAYS HPI Patient is a 38-year-old female with hypertension and chronic pain who presents with epigastric pain. She describes it as sharp and burning. She said it started on Saturday. She is taking Protonix. Upon review of old medical records the patient has multiple visits for various complaints. Review of the emergency department information exchange system shows visits to 2 separate emergency departments for a total of 19 visits over the past 1 year. The patient does have a primary doctor but does not have a pain management doctor. ROS All systems reviewed and are negative except as per history of present illness. Medications Home Meds Active Scripts Magaldrate/Simethicone* (Mylanta*) 355 Ml Susp, 30 ML PO QID PRN for GASTROINTESTINAL UPSET, #1 BOTTLE Prov:RAMONA TURK DO 08/11/18 Ondansetron (Ondansetron Odt) 4 Mg Tab.rapdis, 4 MG PO Q6H PRN for NAUSEA AND/OR VOMITING, #15 TAB Prov:RAMNOA TURK DO 08/11/18 Acetaminophen* (Acetaminophen*) 500 MG Extra Strength Tablet, 500 MG PO Q4H PRN for PAIN AND OR ELEVATED TEMP, #30 TAB Prov:RAMONA TURK DO 08/11/18 Ibuprofen* (Motrin*) 600 Mg Tab, 600 MG PO Q6H PRN for PAIN AND OR ELEVATED TEMP, #30 TAB Prov:RAMONA TURK DO 08/11/18 Levetiracetam* (Keppra*) 500 Mg Tablet, 500 MG PO BID, #60 TAB Prov:KUSUM VAZQUEZ 08/06/18 Ondansetron (Ondansetron Odt) 4 Mg Tab.rapdis, 4 MG PO Q6H PRN for NAUSEA AND/OR VOMITING, #10 TAB Prov:KUSUM VAZQUEZ 08/06/18 Tramadol HCl (Tramadol HCl) 50 Mg Tablet, 50 MG PO Q4 PRN for PAIN, #20 TAB Prov:KUSUM VAZQUEZ 08/06/18 Lorazepam* (Lorazepam*) 0.5 Mg Tablet, 0.5 MG PO Q8 PRN for ANXIETY for 7 Days, TAB Prov:RUT MADRIGAL 06/13/18 Topiramate* (Topamax*) 100 Mg Tablet, 100 MG PO DAILY for 30 Days, TAB Prov:RUT CARRERO 06/13/18 Sumatriptan Succinate* (Imitrex*) 25 Mg Tablet, 25 MG PO Q8H PRN for Migraines, #9 TAB Prov:RUT MADRIGAL 06/13/18 Pantoprazole* (Pantoprazole*) 40 Mg Tablet.dr, 40 MG PO BID for 30 Days, TAB Prov:RUT MADRIGAL 06/13/18 Reported Medications Levetiracetam* (Levetiracetam*) 500 Mg Tablet, 500 MG PO BID, TAB 06/16/18 Amlodipine Besylate* (Norvasc*) 5 Mg Tablet, 5 MG PO DAILY, TAB 04/20/18 Metoclopramide* (Reglan*) 5 Mg Tablet, 5 MG PO AC MEALS AND BEDTIME, TAB 04/20/18 Ropinirole Hcl* (Ropinirole Hcl*) 1 Mg Tablet, 1 MG PO HS, TAB 02/17/18 Sucralfate* (Carafate*) 1 Gm Tab, 1 GM PO BID, TAB 02/17/18 Zolpidem Tartrate* (Ambien*) 10 Mg Tablet, 10 MG PO QHS PRN for INSOMNIA, TAB 02/17/18 Acetamin/Butalbital/Caffeine* (Fioricet*) [id number] Tab, 1 TAB PO NEEDED PRN for PAIN LEVEL 1-5, TAB 02/17/18 Paroxetine Hcl* (Paroxetine*) 40 Mg Tablet, 40 MG PO HS, TAB 02/17/18 Allergies Allergies: Coded Allergies: No Known Allergy (Unverified , 08/11/18) PMhx/Soc History of Surgery: No Anesthesia Reaction: No Hx Neurological Disorder: Yes (migraines, seizures) Hx Respiratory Disorders: Yes (asthma) Hx Cardiac Disorders: Yes (htn) Hx Psychiatric Problems: Yes (BIPOLAR, ANXIETY ) Hx Miscellaneous Medical Probl: No Hx Alcohol Use: Yes (socially) Hx Substance Use: No Hx Tobacco Use: Yes Smoking Status: Current every day smoker FmHx Family History: No diabetes Physical Exam Vitals Vital Signs Date Temp Pulse Resp B/P (MAP) Pulse Ox O2 O2 Flow FiO2 Time Delivery Rate 09/18/18 98.0 106 18 123/91 98 20:11 (102) Physical Exam Const: No acute distress Head: Atraumatic Eyes: Normal Conjunctiva ENT: Normal External Ears, Nose and Mouth. Neck: Full range of motion. No meningismus. Resp: Clear to auscultation bilaterally Cardio: Regular rate and rhythm, no murmurs Abd: Soft, epigastric tenderness to palpation without rebound or guarding Skin: No petechiae or rashes Back: No midline or flank tenderness Ext: No cyanosis, or edema Neur: Awake and alert Psych: Normal Mood and Affect Results 24 hrs Laboratory Tests Test 09/18/18 21:28 POC Beta HCG, Qualitative NEGATIVE Current Medications Medications Dose Sig/Kevin Start Time Status Last (Trade) Ordered Route PRN Stop Time Admin Dose Reason Admin 40 mg ONCE ONCE 09/18/18 DC Pantoprazole PO 21:30 (Protonix 09/18/18 21:31 Tab) 40 ml ONCE ONCE 09/18/18 DC 09/18/18 Miscellaneous PO 21:30 21:17 Medication 09/18/18 21:31 (Gi Cocktail (2)) Procedures/MDM Patient is a 38-year-old female presents with epigastric pain. She was given a GI cocktail and Protonix although she refused the Protonix. When I told her I would not be giving her narcotic medications and discharging her the patient said that "if not can help me then I guess I am just suicidal". She did not mention anything about this prior to me telling her she would not get narcotic medicines and was going to be discharged. I do believe that there is pain seeking behavior here and I would not give her narcotic medicines. I do not believe she is truly suicidal and I do not believe she requires a 5150 hold at this time or a psychiatric evaluation. The patient will be discharged but can return for any worsening symptoms. I doubt appendicitis, cholecystitis, pink otitis, or bowel obstruction. Her test was negative and I doubt or ectopic . She has been referred to the chronic pain committee for development of a pain care plan. Departure Diagnosis: Primary Impression: Chronic pain Chronic pain type: other chronic pain Qualified Codes: G89.29 - Other chronic pain Additional Impression: Epigastric pain Condition: Fair Patient Instructions: Chronic Pain Referrals: GUANAKO NO MD Additional Instructions: SPECIALIST: YOU HAVE A MEDICAL CONDITION WHICH REQUIRES YOU TO SEE A SPECIALIST WITHIN THE NEXT 1-2 DAYS. PLEASE FOLLOW UP WITH YOUR PRIMARY PHYSICIAN FOR REFFERAL.IF YOU DO NOT HAVE A PRIMARY CARE PHYSICIAN AND/OR YOU CAN NOT AFFORD TO SEE A PHYSICIAN THE FOLLOWING RESOURCES HAVE BEEN SUPPLIED TO YOU. IT IS YOUR RESPONSIBILITY TO BE SEEN BY THE SPECIALIST STEPHANIE ISAAC MD September 18, 2018 23:07
== END 2018-09-18 21:32 | disposition home or self-care (01) ==
LOC: E/R 19:38
DX: R10.13 Epigastric pain (principal); G89.29 Other chronic pain; J45.909 Unspecified asthma, uncomplicated; I10 Essential (primary) hypertension; F17.210 Nicotine dependence, cigarettes, uncomplicated
CPT/HCPCS: 81025; Z7502; Z7610; 99283

== ENCOUNTER 2018-11-29 18:35 | Emergency (ER) | payer OTHER ==
[~2018-11-29] VITALS: Ht 157.5 cm; Wt 49.1 kg
[2018-11-29 18:51] VITALS: BP 150/96; PULSE 90; RESP 16; Ht 157.5 cm; Wt 49.1 kg
[2018-11-29] MEDS ORDERED: ONDANSETRON (ODT) 4 MG TAB ODT STA (19:10)
[2018-11-29] MEDS ORDERED: LIDOCAINE/MYLANTA 40 ML BTL PO ONE (19:30)
[2018-11-29] MEDS ORDERED: POTASSIUM CHLORIDE (SR) 20 MEQ TAB PO STA (21:03)
[2018-11-29] MEDS ORDERED: TRAM50TA2 PO (21:05)
[2018-11-29] MEDS ORDERED: ONDA4TAB14 PO (21:05)
[2018-11-29] MEDS ORDERED: LOPE2CAP PO (21:05)
[2018-11-29] MEDS ORDERED: POTA10TA37 PO (21:06)
--- NOTE | 2018-11-29 21:07 | ERD ---
ER Documentation Chief Complaint Chief Complaint DIARRHEA & ABD CRAMPING X5 DAYS, VOMITED 1X TODAY ROS All systems reviewed and are negative except as per history of present illness. Medications Home Meds Active Scripts Potassium Chloride* (K-Dur*) 10 Meq Tab.prt.sr, 10 MEQ PO DAILY for low potassiu m for 5 Days, #5 TAB Prov:RAMONA TURK DO 11/29/18 Loperamide Hcl* (Imodium*) 2 Mg Capsule, 2 MG PO .AFTER EA LOOSE BM PRN for DIARRHEA, #10 TAB Prov:RAMONA TURK DO 11/29/18 Ondansetron (Ondansetron Odt) 4 Mg Tab.rapdis, 4 MG PO Q6H PRN for NAUSEA AND/OR VOMITING, #15 TAB Prov:RAMONA TURK DO 11/29/18 Tramadol HCl (Tramadol HCl) 50 Mg Tablet, 50 MG PO Q6 PRN for PAIN, #20 TAB Prov:RAMONA TURK DO 11/29/18 Magaldrate/Simethicone* (Mylanta*) 355 Ml Susp, 30 ML PO QID PRN for GASTROINTESTINAL UPSET, #1 BOTTLE Prov:RAMONA TURK DO 08/11/18 Ondansetron (Ondansetron Odt) 4 Mg Tab.rapdis, 4 MG PO Q6H PRN for NAUSEA AND/OR VOMITING, #15 TAB Prov:RAMONA TURK DO 08/11/18 Acetaminophen* (Acetaminophen*) 500 MG Extra Strength Tablet, 500 MG PO Q4H PRN for PAIN AND OR ELEVATED TEMP, #30 TAB Prov:RAMNOA TURK DO 08/11/18 Ibuprofen* (Motrin*) 600 Mg Tab, 600 MG PO Q6H PRN for PAIN AND OR ELEVATED TEMP, #30 TAB Prov:RAMONA TURK DO 08/11/18 Levetiracetam* (Keppra*) 500 Mg Tablet, 500 MG PO BID, #60 TAB Prov:KUSUM VAZQUEZ 08/06/18 Ondansetron (Ondansetron Odt) 4 Mg Tab.rapdis, 4 MG PO Q6H PRN for NAUSEA AND/OR VOMITING, #10 TAB Prov:KUSUM VAZQUEZ 08/06/18 Tramadol HCl (Tramadol HCl) 50 Mg Tablet, 50 MG PO Q4 PRN for PAIN, #20 TAB Prov:KUSUM VAZQUEZ 08/06/18 Lorazepam* (Lorazepam*) 0.5 Mg Tablet, 0.5 MG PO Q8 PRN for ANXIETY for 7 Days, TAB Prov:RUT MADRIGAL [employer]AND [employer] 06/13/18 Topiramate* (Topamax*) 100 Mg Tablet, 100 MG PO DAILY for 30 Days, TAB Prov:RUT MADRIGAL NP 06/13/18 Sumatriptan Succinate* (Imitrex*) 25 Mg Tablet, 25 MG PO Q8H PRN for Migraines, #9 TAB Prov:RUT MADRIGAL [employer] 06/13/18 Pantoprazole* (Pantoprazole*) 40 Mg Tablet.dr, 40 MG PO BID for 30 Days, TAB Prov:RUT MADRIGAL NP 06/13/18 Reported Medications Levetiracetam* (Levetiracetam*) 500 Mg Tablet, 500 MG PO BID, TAB 06/16/18 Amlodipine Besylate* (Norvasc*) 5 Mg Tablet, 5 MG PO DAILY, TAB 04/20/18 Metoclopramide* (Reglan*) 5 Mg Tablet, 5 MG PO AC MEALS AND BEDTIME, TAB 04/20/18 Ropinirole Hcl* (Ropinirole Hcl*) 1 Mg Tablet, 1 MG PO HS, TAB 02/17/18 Sucralfate* (Carafate*) 1 Gm Tab, 1 GM PO BID, TAB 02/17/18 Zolpidem Tartrate* (Ambien*) 10 Mg Tablet, 10 MG PO QHS PRN for INSOMNIA, TAB 02/17/18 Acetamin/Butalbital/Caffeine* (Fioricet*) [id number] Tab, 1 TAB PO NEEDED PRN for PAIN LEVEL 1-5, TAB 02/17/18 Paroxetine Hcl* (Paroxetine*) 40 Mg Tablet, 40 MG PO HS, TAB 02/17/18 Allergies Allergies: Coded Allergies: No Known Allergy (Unverified , 08/11/18) PMhx/Soc Medical and Surgical Hx: pt denies Medical Hx, pt denies Surgical Hx History of Surgery: No Anesthesia Reaction: No Hx Neurological Disorder: Yes (migraines, seizures) Hx Respiratory Disorders: Yes (asthma) Hx Cardiac Disorders: Yes (htn) Hx Psychiatric Problems: Yes (BIPOLAR, ANXIETY ) Hx Miscellaneous Medical Probl: No Hx Alcohol Use: Yes (socially) Hx Substance Use: No Hx Tobacco Use: Yes Smoking Status: Current every day smoker Physical Exam Vitals Vital Signs Date Temp Pulse Resp B/P (MAP) Pulse Ox O2 O2 Flow FiO2 Time Delivery Rate 11/29/18 98.2 90 16 150/96 97 18:51 (114) Physical Exam Const: No acute distress Head: Atraumatic Eyes: Normal Conjunctiva ENT: Normal External Ears, Nose and Mouth. Neck: Full range of motion. No meningismus. Resp: Clear to auscultation bilaterally Cardio: Regular rate and rhythm, no murmurs Abd: Soft, non tender, non distended. Normal bowel sounds Skin: No petechiae or rashes Back: No midline or flank tenderness Ext: No cyanosis, or edema Neur: Awake and alert Psych: Normal Mood and Affect Result Diagram: 11/29/18191511/29/181915 Results 24 hrs Laboratory Tests Test 11/29/18 19:11 11/29/18 19:16 POC Beta HCG, Qualitative NEGATIVE White Blood Count 3.1 10^3/ul Red Blood Count 4.63 10^6/ul Hemoglobin 14.8 g/dl Hematocrit 44.6 % Mean Corpuscular Volume 96.3 fl Mean Corpuscular Hemoglobin 32.0 pg Mean Corpuscular Hemoglobin Concent 33.2 g/dl Red Cell Distribution Width 14.7 % Platelet Count 171 10^3/UL Mean Platelet Volume 10.5 fl Immature Granulocytes % 0.000 % Neutrophils % 46.2 % Lymphocytes % 36.6 % Monocytes % 13.7 % Eosinophils % 1.9 % Basophils % 1.6 % Nucleated Red Blood Cells % 0.0 /100WBC Immature Granulocytes # 0.000 10^3/ul Neutrophils # 1.5 10^3/ul Lymphocytes # 1.2 10^3/ul Monocytes # 0.4 10^3/ul Eosinophils # 0.1 10^3/ul Basophils # 0.1 10^3/ul Nucleated Red Blood Cells # 0.0 10^3/ul Urine Color [place] Urine Clarity SLIGHTLY CLOUDY Urine pH 6.0 Urine Specific [place] 1.034 Urine Ketones TRACE mg/dL Urine Nitrite NEGATIVE mg/dL Urine Bilirubin 1+ mg/dL Urine Urobilinogen NEGATIVE mg/dL Urine Leukocyte Esterase TRACE Fide/ul Urine Microscopic RBC 6 /HPF Urine Microscopic WBC 20 /HPF Urine Squamous Epithelial Cells FEW /HPF Urine Bacteria FEW /HPF Urine Mucus MODERATE /HPF Urine Hemoglobin NEGATIVE mg/dL Urine Glucose NEGATIVE mg/dL Urine Total Protein 1+ mg/dl Sodium Level 142 mmol/L Potassium Level 3.3 mmol/L Chloride Level 101 mmol/L Carbon Dioxide Level 28 mmol/L Anion Gap 13 Blood Urea Nitrogen 16 mg/dl Creatinine 0.59 mg/dl Est Glomerular Filtrat Rate mL/min > 60 mL/min Glucose Level 108 mg/dl Calcium Level 9.2 mg/dl Total Bilirubin 0.5 mg/dl Direct Bilirubin 0.00 mg/dl Indirect Bilirubin 0.5 mg/dl Aspartate Amino Transf (AST/SGOT) 39 IU/L Alanine Aminotransferase (ALT/SGPT) 19 IU/L Alkaline Phosphatase 89 IU/L Total Protein 7.6 g/dl Albumin 4.3 g/dl Globulin 3.30 g/dl Albumin/Globulin Ratio 1.30 Lipase 34 U/L Current Medications Medications Dose Sig/Kevin Start Time Status Last (Trade) Ordered Route PRN Stop Time Admin Dose Reason Admin Ondansetron 4 mg ONCE STAT 11/29/18 DC 11/29/18 HCl (Zofran ODT 19:10 19:16 Odt) 11/29/18 19:13 40 ml ONCE ONCE 11/29/18 DC 11/29/18 Miscellaneous PO 19:30 19:16 Medication 11/29/18 19:31 (Gi Cocktail (2)) Tramadol 50 mg ONCE ONCE 11/29/18 DC 11/29/18 HCl PO 21:30 21:09 (Ultram) 11/29/18 21:31 Potassium 20 meq ONCE STAT 11/29/18 DC 11/29/18 Chloride PO 21:03 21:08 (Klor-Con 20) 11/29/18 21:04 Departure Diagnosis: Primary Impression: Abdominal pain Abdominal location: epigastric Qualified Codes: R10.13 - Epigastric pain Additional Impression: Vomiting and diarrhea Condition: Fair Patient Instructions: Abdominal Pain, Self-Care for Vomiting and Diarrhea Additional Instructions: Call your primary care doctor TOMORROW for an appointment during the next 1-2 days.See the doctor sooner or return here if your condition worsens before your appointment time. RAMONA TURK DO Nov 29, 2018 21:07
[2018-11-29] MEDS ORDERED: traMADol 50 MG TAB PO ONE (21:30)
== END 2018-11-29 21:33 | disposition home or self-care (01) ==
LOC: FTE 18:35
DX: R10.13 Epigastric pain (principal); R11.10 Vomiting, unspecified; I10 Essential (primary) hypertension; J45.909 Unspecified asthma, uncomplicated; F17.210 Nicotine dependence, cigarettes, uncomplicated
CPT/HCPCS: 76705; 80053; 81001; 81025; 83690; 85025; Z7610; 36415

== ENCOUNTER 2018-12-08 19:48 | Emergency (ER) | payer OTHER ==
[~2018-12-08] VITALS: Ht 157.5 cm; Wt 53.0 kg
[2018-12-08 19:48] VITALS: BP 125/82; PULSE 112; RESP 24; Ht 157.5 cm; Wt 53.0 kg
[~2018-12-08 19:48] MED LIST changes: +LOPE2CAP PO; +POTA10TA37 PO
[2018-12-08] MEDS ORDERED: LORAZEPAM 1 MG TAB PO ONE (20:00)
--- NOTE | 2018-12-08 20:19 | ERD ---
ER Documentation Chief Complaint Chief Complaint Anxiety HPI Patient is a 38-year-old female with a history of bipolar and depression who presents saying that she is having a "anxiety attack". She was brought in by ambulance. She said that she was upset about her discussion at school that happened today. She says that she wants to jump in front of a car. Upon review of old medical record the patient has multiple visits to the ER for various complaints. Review of the emergency department information exchange system shows visits to 2 separate emergency departments for a total of 16 visits over the past 1 year. She does have a primary doctor but does not remember the name of her psychiatrist. ROS All systems reviewed and are negative except as per history of present illness. Medications Home Meds Active Scripts Potassium Chloride* (K-Dur*) 10 Meq Tab.prt.sr, 10 MEQ PO DAILY for low potas sium for 5 Days, #5 TAB Prov:RAMONA TURK DO 11/29/18 Loperamide Hcl* (Imodium*) 2 Mg Capsule, 2 MG PO .AFTER EA LOOSE BM PRN for DIARRHEA, #10 TAB Prov:RAMONA TURK DO 11/29/18 Ondansetron (Ondansetron Odt) 4 Mg Tab.rapdis, 4 MG PO Q6H PRN for NAUSEA AND/OR VOMITING, #15 TAB Prov:RAMONA TURK DO 11/29/18 Tramadol HCl (Tramadol HCl) 50 Mg Tablet, 50 MG PO Q6 PRN for PAIN, #20 TAB Prov:RAMONA TURK DO 11/29/18 Magaldrate/Simethicone* (Mylanta*) 355 Ml Susp, 30 ML PO QID PRN for GASTROINTESTINAL UPSET, #1 BOTTLE Prov:RAMONA TURK DO 08/11/18 Ondansetron (Ondansetron Odt) 4 Mg Tab.rapdis, 4 MG PO Q6H PRN for NAUSEA AND/OR VOMITING, #15 TAB Prov:RAMONA TURK DO 08/11/18 Acetaminophen* (Acetaminophen*) 500 MG Extra Strength Tablet, 500 MG PO Q4H PRN for PAIN AND OR ELEVATED TEMP, #30 TAB Prov:RAMONA TURK DO 08/11/18 Ibuprofen* (Motrin*) 600 Mg Tab, 600 MG PO Q6H PRN for PAIN AND OR ELEVATED TEMP, #30 TAB Prov:RAMONA TURK DO 08/11/18 Levetiracetam* (Keppra*) 500 Mg Tablet, 500 MG PO BID, #60 TAB Prov:THELMAROBIKUSUM Caleb. 08/06/18 Ondansetron (Ondansetron Odt) 4 Mg Tab.rapdis, 4 MG PO Q6H PRN for NAUSEA AND/OR VOMITING, #10 TAB Prov:GEORGEKUSUM Caleb. 08/06/18 Tramadol HCl (Tramadol HCl) 50 Mg Tablet, 50 MG PO Q4 PRN for PAIN, #20 TAB Prov:GEORGEKUSUM Caleb. 08/06/18 Lorazepam* (Lorazepam*) 0.5 Mg Tablet, 0.5 MG PO Q8 PRN for ANXIETY for 7 Days, TAB Prov:[facility] [employer] OFFICE COORDINATOR 06/13/18 Topiramate* (Topamax*) 100 Mg Tablet, 100 MG PO DAILY for 30 Days, TAB Prov:RUT [employer]AD[employer]IG[employer] OFFICE COORDINATOR 06/13/18 Sumatriptan Succinate* (Imitrex*) 25 Mg Tablet, 25 MG PO Q8H PRN for Migraines, #9 TAB Prov:RUT [employer] OFFICE COORDINATOR 06/13/18 Pantoprazole* (Pantoprazole*) 40 Mg Tablet.dr, 40 MG PO BID for 30 Days, TAB Prov:RUT [employer] OFFICE COORDINATOR 06/13/18 Reported Medications Levetiracetam* (Levetiracetam*) 500 Mg Tablet, 500 MG PO BID, TAB 06/16/18 Amlodipine Besylate* (Norvasc*) 5 Mg Tablet, 5 MG PO DAILY, TAB 04/20/18 Metoclopramide* (Reglan*) 5 Mg Tablet, 5 MG PO AC MEALS AND BEDTIME, TAB 04/20/18 Ropinirole Hcl* (Ropinirole Hcl*) 1 Mg Tablet, 1 MG PO HS, TAB 02/17/18 Sucralfate* (Carafate*) 1 Gm Tab, 1 GM PO BID, TAB 02/17/18 Zolpidem Tartrate* (Ambien*) 10 Mg Tablet, 10 MG PO QHS PRN for INSOMNIA, TAB 02/17/18 Acetamin/Butalbital/Caffeine* (Fioricet*) [id number] Tab, 1 TAB PO NEEDED PRN for PAIN LEVEL 1-5, TAB 02/17/18 Paroxetine Hcl* (Paroxetine*) 40 Mg Tablet, 40 MG PO HS, TAB 02/17/18 Allergies Allergies: Coded Allergies: No Known Allergy (Unverified , 08/11/18) PMhx/Soc History of Surgery: No Anesthesia Reaction: No Hx Neurological Disorder: Yes (migraines, seizures) Hx Respiratory Disorders: Yes (asthma) Hx Cardiac Disorders: Yes (htn) Hx Psychiatric Problems: Yes (BIPOLAR, ANXIETY ) Hx Miscellaneous Medical Probl: No Hx Alcohol Use: Yes (socially) Hx Substance Use: No Hx Tobacco Use: Yes FmHx Family History: diabetes Physical Exam Physical Exam Const: Crying Head: Atraumatic Eyes: Normal Conjunctiva ENT: Normal External Ears, Nose and Mouth. Neck: Full range of motion. No meningismus. Resp: Clear to auscultation bilaterally Cardio: Regular rate and rhythm, no murmurs Abd: Soft, non tender, non distended. Normal bowel sounds Skin: No petechiae or rashes Back: No midline or flank tenderness Ext: No cyanosis, or edema Neur: Awake and alert Psych: Crying and does say that she wants to jump in front of a car Results 24 hrs Current Medications Medications Dose Sig/Kevin Start Time Status Last (Trade) Ordered Route PRN Stop Time Admin Dose Reason Admin Lorazepam 1 mg ONCE ONCE 12/08/18 DC (Ativan) PO 20:00 12/08/18 20:08 Procedures/MDM Patient is a 38-year-old female who presents with anxiety attack and suicidal ideation. I ordered Ativan and a psychiatric consultation. She became angry and said "you guys never do anything for me here and I want to leave". I do not believe that she truly is suicidal or homicidal at this time. She has frequent visits with similar type presentations in the past. The patient will be discharged and she can return for any worsening symptoms. Departure Diagnosis: Primary Impression: Psychosis Psychosis type: unspecified psychosis type Qualified Codes: F29 - Unspecified psychosis not due to a substance or known physiological condition Condition: Fair Patient Instructions: Psychosis Additional Instructions: Call your primary care doctor TOMORROW for an appointment during the next 1 WEEK.Tell the assistant corporate secretary that you were referred from this facility.See the doctor sooner or return here if your condition worsens before your appointment time. STEPHANIE ISAAC MD Dec 08, 2018 20:19
== END 2018-12-08 20:06 | disposition home or self-care (01) ==
LOC: E/R 19:48 → EDUNIT# 19:48 → E/R 20:06
DX: F29 Unspecified psychosis not due to a substance or known physiological condition (principal); J45.909 Unspecified asthma, uncomplicated; I10 Essential (primary) hypertension; Z87.891 Personal history of nicotine dependence
CPT/HCPCS: 99283

== ENCOUNTER 2019-03-04 12:18 | Emergency (ER) | payer OTHER ==
[~2019-03-04] VITALS: Ht 157.5 cm; Wt 54.1 kg
[~2019-03-04 12:18] MED LIST changes: +AMOX1TAB10 PO; +HYDR-4011 PO; +NPH10OT RIGHT EAR
[2019-03-04 12:20] VITALS: BP 150/96; PULSE 102; RESP 19; Ht 157.5 cm; Wt 54.1 kg
[2019-03-04] MEDS ORDERED: ONDANSETRON (ODT) 4 MG TAB ODT STA (13:21)
[2019-03-04] MEDS ORDERED: HYDROCODONE/APAP (5/325) TAB PO ONE (13:30)
== END 2019-03-04 13:35 | disposition home or self-care (01) ==
LOC: FTE 12:18
DX: H60.91 Unspecified otitis externa, right ear (principal)
CPT/HCPCS: Z7502; Z7610; 99283